=== PATIENT | male | born 1945 | race Caucasian/White ===

== ENCOUNTER 2020-03-21 06:28 | Inpatient (IN) | payer OTHER, SELFPAY ==
[2020-03-21] VITALS (37 sets, daily range): BP systolic 136–184; BP diastolic 60–106; PULSE 60–87; RESP 12–26; TEMP 36.5–37.1; O2SAT 4–100; BMI 19.5
--- NOTE | ~2020-03-21 | NM_ITS ---
NM pulmonary perfusion DATE: 03/21/2020 09:32 INDICATION: Shortness of breath TECHNIQUE: 8 standard views of the lungs following intravenous injection of 4.87 mCi 99M technetium M AA COMPARISON: 03/21/2020 AP and lateral chest FINDINGS: No significant subsegmental, segmental or lobar perfusion abnormality is evident. IMPRESSION: Low probability pulmonary embolus Reviewed, dictated and finalized at [facility] Reviewed, dictated and finalized at [facility].
--- NOTE | ~2020-03-21 | XR_ITS ---
EXAMINATION: XR chest 2V DATE: 03/21/2020 07:07 INDICATION: Shortness of breath TECHNIQUE: frontal view of the chest was obtained. COMPARISON: Chest radiograph dated 07/09/[address] studies dated 05/19/2017 and 03/01/2011 FINDINGS: Hyperexpansion of the lungs. No significant interval change in patchy groundglass and linear opacitie s scattered throughout both lungs consistent with chronic interstitial lung disease. Heart size is no rmal. Enlargement of the central pulmonary arteries consistent with pulmonary arterial hypertension. Visualized bones and soft tissues are unremarkable. IMPRESSION: 1. No significant interval change in diffuse bilateral lung disease which likely combination of emphy sema and chronic interstitial lung disease. Reviewed, dictated and finalized at [facility]. IMPRESSION: 1. No significant interval change in diffuse bilateral lung disease which likel y combination of emphysema and chronic interstitial lung disease.
--- NOTE | 2020-03-21 07:11 | ECG_ITS ---
Measurements Intervals [place] Rate: 69 P: 80 MT: 180 QRS: 57 QRSD: 106 T: 73 QT: 374 QTc: 403 Interpretive Statements SINUS RHYTHM INCOMPLETE RIGHT BUNDLE BRANCH BLOCK CANNOT RULE OUT SEPTAL INFARCT, AGE INDETERMINATE BASELINE ARTIFACT- II, III, V5-V6 ABNORMAL ECG Electronically Signed On 03-21-2020 7:14:08 CDT by Fernie Jones D.O.
--- NOTE | 2020-03-21 07:14 | ED.SOB ---
HPI - SOB/Dyspnea General Chief Complaint: Shortness of Breath/Dyspnea Stated Complaint: sob Time Seen by Provider: 03/21/20 07:02 Source: RN notes reviewed History of Present Illness HPI Narrative: Patient presents emergency department from home for shortness of breath. Patient states symptoms been ongoing for the past 2 days. Associated with cough is productive of yellowish-pink sputum. Patient states he has a history of COPD and is currently on oxygen nasal cannula 2 L/min at all times states he has had to increase up to 5 times. Denies any fevers or chills chest pain abdominal pain nausea vomiting or any other symptoms Related Data Home Medications Medication Instructions Recorded Confirmed albuterol sulfate 90 mcg/actuation 1 inhalation INHALATION Q4-6H PRN 10/25/19 breath activated powder inhaler alprazolam 0.5 mg tablet 0.5 mg PO DAILY 10/25/19 aspirin 325 mg tablet 325 mg PO DAILY 10/25/19 divalproex 125 mg capsule,delayed PO 10/25/19 release sprinkle finasteride 5 mg tablet 5 mg PO DAILY 10/25/19 megestrol 400 mg/10 mL (40 mg/mL) 100 mg PO QID 10/25/19 oral suspension metoprolol succinate 25 mg 25 mg PO DAILY 10/25/19 tablet,extended release 24 hr multivitamin-ferrous 1 tablet PO DAILY 10/25/19 fumarate-folic acid 18 mg-400 mcg tablet omeprazole 20 mg capsule,delayed 20 mg PO DAILY 10/25/19 release Allergies Allergy/AdvReac Type Severity Reaction Status Date / Time Contrast Media Allergy Mild Hives / Uncoded 03/21/20 07:19 Red Face - Contrast Media Allergy Unknown Hives / Uncoded 03/21/20 07:19 Red Face No Known Drug Allergies Allergy Unknown Unknown Uncoded 03/21/20 07:19 Review of Systems Review of Systems: Narrative: Gen.: Denies fevers or chills ENT: Denies congestion Respiratory: Reports shortness of breath CV: Denies chest pain or palpitations GI: Denies abdominal pain nausea, emesis or diarrhea Musculoskeletal: Denies back pain or muscle pain Neuro: Denies numbness, tingling, weakness or focal weakness Skin: Denies rash Except as documented, all other systems reviewed and negative PMFSH Past Medical History Medical History 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 ABDOMINAL: Soft, nontender, nondistended, no rebound or guarding MUSCULOSKELETAl: Moves all extremities. No clubbing, cyanosis or edema. NEURO: Awake and alert. Following commands, speech normal, no focal deficits SKIN:: Warm, dry. No rashes lesions or abrasions PSYCHIATRIC: Normal affect/mood, Course Course Emergency Course: Patient was walking pulse ox in ED patient with O2 saturations down into the mid 80s with ambulation with his normal 2 L O2 will admit at this time Discussed with Dr. Aguero presentation work-up. Agrees with mission at this time Discussed with patient and family results of workup and diagnosis. Discussed need for admission. Patient and family understand and agree to current treatment plan Vital Signs Vital signs: Vital Signs Temperature 98.7 F 03/21/20 06:30 Pulse Rate 69 03/21/20 06:30 Respiratory Rate 20 03/21/20 06:30 Blood Pressure 182/83 H 03/21/20 06:30 Pulse Oximetry 4 L 03/21/20 06:30 Temperature 97.9 F 03/21/20 07:15 Pulse Rate 66 03/21/20 10:21 Respir
[2020-03-21 07:48] LABS: Alveolar/Arterial O2 Gradient 7.9 mmHg; Base Excess ABG 5.3 mEq/l (+/-2.0); Device NASAL CANNULA; Fractional Inspired Oxygen 28 %; HCO3 ABG 31.1 mEq/l (22.0-26.0); Oxygen Content ABG 16.2 %vol (16.0-22.0); Oxygen Saturation ABG 98.6 % (95.0-100.0); Oxyhemoglobin 97.2 % THb (90.0-100.0); PCO2 ABG 51.2 mmHg (35.0-45.0); PO2 ABG 131.3 mmHg (80.0-100.0); PO2 FiO2 Ratio Arterial Blood 4.69 %; Site Drawn RIGHT BRACHIAL; Total Hemoglobin 11.7 g/dL (12.0-18.0); pH ABG 7.402 (7.350-7.450)
[2020-03-21 07:48] LABS: Basophils Percent Auto 0.4 % (0.2-1.2); Eosinophils Absolute Auto 0.3 K/mm3 (0-0.3); Hematocrit 37.8 % (42.0-52.0); Hemoglobin 12.2 g/dL (14.0-18.0); Immature Granulocyte Absolute 0.02 K/mm3 (0.00-0.031); Immature Granulocyte Percent A 0.3 % (0-0.5); Lymphocytes Absolute Auto 2.01 K/mm3 (0.9-3.2); Lymphocytes Percent Auto 28.8 % (18.3-44.2); Mean Corpuscular HGB Conc 32.3 g/dl (32-36); Mean Corpuscular Hemoglobin 28.7 pg (26-34); Mean Corpuscular Volume 88.9 fl (80-100); Mean Platelet Volume 10.2 fl (7.4-10.4); Monocytes Absolute Auto 0.7 K/mm3 (0.1-0.6); Monocytes Percent Auto 9.6 % (2.6-8.5); Neutrophils Percent Auto 56.9 % (45.5-73.1); Platelet Count Result 192 k/mm3 (150-375); Red Blood Count 4.25 M/mm3 (4.6-6.20); Red Cell Distribution Width 13.9 % (11.5-14.5)
[2020-03-21 07:57] LABS: Prothrombin Time 12.7 Seconds (11.1-14.7)
[2020-03-21 07:58] LABS: Partial Thromboplastin Time 21.6 SECONDS (22.3-36.8)
[2020-03-21 07:59] LABS: Lactic Acid Reflex 1.1 mmol/L (0.7-2.1)
[2020-03-21 08:01] LABS: Blood Urea Nitrogen 18 mg/dL (9-20); Calcium 8.8 mg/dL (8.4-10.2); Carbon Dioxide > 40 mmol/L (22-30); Chloride 99 mmol/L (98-107); Estimated CRCL calculation 83 ml/min; Estimated Glomerular Filt Rate > 60; Glucose 105 mg/dL (75-110); Potassium 4.7 mmol/L (3.4-5.0); Sodium 138 mmol/L (137-145)
[2020-03-21 08:11] LABS: Troponin I < 0.012 ng/mL (0.000-0.034)
[2020-03-21] MEDS: methylPREDNISolone SOD SUCC 125 MG VIAL IV PUSH (08:13)
[2020-03-21] MEDS: ALBUTEROL SULFATE NEB 2.5 MG/0.5 ML INH 5 MG INHALATION ×2 (08:25→20:41)
[2020-03-21] MEDS: IPRATROPIUM BR 0.02% INH SOLN 0.5 MG/2.5 ML VIAL INHALATION ×2 (08:26→20:41)
--- NOTE | 2020-03-21 12:44 | ADMGEN ---
This patient, Marino Steiner, was admitted to [facility] Surg Room 330-01. Patient oriented to hospital policies and general routines including ID bracelet, bed and alarms, visiting hours, pain management, procedures, bathroom and other care routines, personal items, smoking policy, room service/diet, and visiting hours. Valuables list has been completed. Information on how to activate the Rapid Response Team has been discussed. Patient is encouraged to report perceived risks to care and to ask questions if they do not understand what they are told or what they should do.
[2020-03-21] MEDS: methylPREDNISolone SOD SUCC 125 MG VIAL 60 MG IV PUSH ×2 (14:37→17:59)
[2020-03-21 17:01] LABS: SARS-CoV-2 RNA PCR Negative
--- NOTE | 2020-03-21 17:47 | PM.IMHP ---
H&P: HPI History of Present Illness Chief complaint: AE COPD/hypoxia Narrative: Marino Steiner is a 74 year old male who lives at home with his and has been on quarantine. The patient denies any fever chills. He does have a history of having COPD with chronic hypoxia. The patient is chronically on oxygen at 2 L per nasal cannula. The patient states that he has a pulse oximetry at home and his oxygen levels have never dropped below 90%. However the patient has been complaining of increasingly shortness of breath the last 2 days. The patient turned his oxygen up to 5 L per nasal cannula. The patient does have nebulizer treatments at home. He has had no fever chills, no nausea or vomiting. The patient was checked for covid 19 which is now resulting is negative. The patient stated that he had a yellow productive cough as well. He is not sure if he sees a sharepoint web developer. He believes he is just being treated by his primary care doctor for COPD. However I did see a note from Dr. Cox sharepoint web developer from last year. Pulmonary perfusion imaging was read as low probability pulmonary embolism. Chest x-ray was read as no significant interval change in diffuse bilateral lung disease which likely combination of emphysema and chronic interstitial lung disease. The patient was given nebulizer treatments in the emergency room and Solu-Medrol. The patient is back down to oxygen at 2 L per nasal cannula. He initially was placed on isolation for potential COVID but now that is negative he can be off of isolation. Date of service is 03/21/2020 Review of Systems Review of Systems: All systems reviewed & are unremarkable except as noted in HPI and below Constitutional: Constitutional: Reports as per HPI and Reports no additional constitutional complaints Eyes: Eyes: Reports as per HPI and Reports no additional eye complaints ENT: Reports system reviewed and no additional complaints, except as documented and Reports Normal hearing present Cardiovascular: Cardiovascular: Reports no additional cardiovascular complaints Respiratory: Respiratory: Reports no additional respiratory complaints and Reports no additional respiratory complaints Gastrointestinal: Gastrointestinal: Reports as per HPI and Reports no additional gastrointestinal complaints Musculoskeletal: Musculoskeletal: Reports no additional musculoskeletal complaints Integumentary/Breasts: Skin/Breast: Reports system reviewed and no additional complaints, except as docu and Reports as per HPI Neurologic: Reports system reviewed and no additional complaints, except as documented, Reports as per HPI and Reports Normal hearing present Psychiatric: Psychiatric: Reports no additional psychiatric complaints and Reports as per HPI Endocrine: Endocrine: Reports no additional endocrine complaints Hematologic/Lymphatic: Hematologic/Lymphatic: Reports no additional hematologic/lymphatic complaints Allergic/Immunologic: Allergic/Immunologic: Reports no additional allergic/immunologic complaints [facility] Past Medical History Medical History (Updated 03/21/20 @ 17:59 by Stacie Meyers NP) Anemia Anorexia Anxiety BPH (benign prostatic hyperplasia) 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 He has been in quarantine since December. His is his durable power atto
[2020-03-21] MEDS: carvediloL 6.25 MG TABLET BY MOUTH (17:58)
[2020-03-21] MEDS: DIVALPROEX SODIUM SPRINKLE 125 MG CAP.DR PO (21:02)
[2020-03-22] VITALS (15 sets, daily range): BP systolic 110–136; BP diastolic 37–65; PULSE 64–83; RESP 16–20; TEMP 36.4–36.7; O2SAT 93–100
[2020-03-22] MEDS: methylPREDNISolone SOD SUCC 125 MG VIAL 60 MG IV PUSH ×4 (00:02→21:12)
[2020-03-22] MEDS: IPRATROPIUM BR 0.02% INH SOLN 0.5 MG/2.5 ML VIAL INHALATION ×4 (02:03→19:56)
[2020-03-22] MEDS: ALBUTEROL SULFATE NEB 2.5 MG/0.5 ML INH 5 MG INHALATION ×4 (02:03→19:56)
[2020-03-22 06:57] LABS: Basophils Percent Auto 0.2 % (0.2-1.2); Hemoglobin 11.5 g/dL (14.0-18.0); Immature Granulocyte Absolute 0.06 K/mm3 (0.00-0.031); Immature Granulocyte Percent A 0.5 % (0-0.5); Lymphocytes Absolute Auto 1.77 K/mm3 (0.9-3.2); Lymphocytes Percent Auto 14.5 % (18.3-44.2); Mean Corpuscular HGB Conc 33.8 g/dl (32-36); Mean Corpuscular Hemoglobin 29.5 pg (26-34); Mean Corpuscular Volume 87.2 fl (80-100); Mean Platelet Volume 9.8 fl (7.4-10.4); Monocytes Absolute Auto 0.3 K/mm3 (0.1-0.6); Monocytes Percent Auto 2.3 % (2.6-8.5); Neutrophils Absolute Auto 10.1 K/mm3 (1.3-6.7); Neutrophils Percent Auto 82.5 % (45.5-73.1); Platelet Count Result 202 k/mm3 (150-375); Red Cell Distribution Width 13.7 % (11.5-14.5); White Blood Count 12.2 K/mm3 (4.5-10.0)
[2020-03-22 07:11] LABS: Blood Urea Nitrogen 27 mg/dL (9-20); Calcium 8.9 mg/dL (8.4-10.2); Carbon Dioxide 32 mmol/L (22-30); Chloride 96 mmol/L (98-107); Estimated CRCL calculation 64 ml/min; Estimated Glomerular Filt Rate > 60; Glucose 218 mg/dL (75-110); Potassium 4.5 mmol/L (3.4-5.0); Sodium 136 mmol/L (137-145)
[2020-03-22] MEDS: ASPIRIN 81 MG CHEWABLE TABLET PO (08:06)
[2020-03-22] MEDS: carvediloL 6.25 MG TABLET BY MOUTH ×2 (12:07→16:41)
[2020-03-22] MEDS: MULTIVITAMINS /C LUTEIN (CENTRUM SILVER) TABLET *BKC 1 TAB PO (12:07)
[2020-03-22] MEDS: DIVALPROEX SODIUM SPRINKLE 125 MG CAP.DR PO ×2 (12:07→21:12)
[2020-03-22] MEDS: ATORVASTATIN 40 MG TABLET PO (12:07)
[2020-03-22] MEDS: CLOPIDOGREL BISULFATE 75 MG TABLET BY MOUTH (12:07)
[2020-03-22] MEDS: FINASTERIDE 5 MG TABLET PO (12:07)
--- NOTE | 2020-03-22 14:18 | PM.IMPN ---
Progress Note: A&P Assessment and Plan (1) Acute exacerbation of chronic obstructive airways disease: Code(s): J44.1 - Chronic obstructive pulmonary disease with (acute) exacerbation Status: Acute Assessment and Plan: Patient on 3L O2 today; slightly up from yesterday. He has symptomatically improved, although still feels congested and reporting a dry cough; requests a mucolytic. Overall, he feels better today. COVID testing negative. Sputum Cx uncollected. Appears more COPD exacerbation but on empiric abx therapy for possible pneumonia. Will taper SoluMedrol frequency to Q12hr tomorrow Wean to home O2 Continue neb treatments, Mucinex. Add Mucinex, Pulmozyme, and CPT PEP therapy Will continue Azithro and Rocephin for possible underlying pneumonia; will d/c pending sputum cultures/clinical improvement Continue home medications (2) Hypertension: Code(s): I10 - Essential (primary) hypertension Status: Chronic Assessment and Plan: BP 120s sys Continue with Coreg. Monitor (3) BPH (benign prostatic hyperplasia): Code(s): N40.0 - Benign prostatic hyperplasia without lower urinary tract symptoms Status: Chronic Assessment and Plan: No acute issues. It sounds like the patient had a urethral stricture dilatation in the past. He states he chronically has increased frequency. Continue with Proscar (4) Anxiety: Code(s): F41.9 - Anxiety disorder, unspecified Status: Chronic Assessment and Plan: No acute issues Monitor (5) Anemia: Code(s): D64.9 - Anemia, unspecified Status: Chronic Assessment and Plan: Hgb 11.5; relatively stable. No signs of acute blood loss Continue to monitor daily (6) Anorexia: Code(s): R63.0 - Anorexia Status: Chronic Assessment and Plan: The patient had been on Megace at one time but no longer takes this. Patient has lost approximately 40 lb since he has retired. Patient is currently on steroids now. 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 No acute issues Monitor PT/OT for some gen weakness (8) Diastolic dysfunction: Code(s): I51.89 - Other ill-defined heart diseases Status: Chronic Assessment and Plan: Appears to be well compensated continue Coreg Subjective Date/time seen: 03/22/20 14:18 Interval history: Patient is a 74 yo M with COPD, CRF on 2L O2 at home, and BPH, among several other comorbid conditions who is here for likely COPD exacerbation. Patient states he feels about a medium in his respiratory status today; when questioned further, his SOB has improved. His cough is non-productive today. He notes previously pink-yellowish sputum, but no kendell blood. Nursing reports foul smelling urine and patient confirms, but denies any urinary symptoms other than increased frequency. He tells me he usually goes several days without bowel movements, but then has diarrhea after taking laxatives. No bloody/melenic stools. He does complain of right upper thigh pain, but no redness swelling; this has been persistent for several weeks. Denies f/c/s, headaches, dizziness, lightheadedness, cp/palpitations,n/v, abd pain, dysuria, hematuria, cloudy urine, calf pain/swelling. Review of Systems Review of Systems: All systems reviewed & are unremarkable except as noted in HPI and below Exam Narrative: Exam Narrative: Patient is lying s
--- NOTE | 2020-03-22 14:35 | PCPTNOTE ---
attempted PT evaluation, pt was receiving respiratory treatment. Will attempt tomorrow;
--- NOTE | 2020-03-22 14:48 | PCOTNOTE ---
Attempted OT evaluation this PM however was receiving a breathing treatment and requested to attempt evaluation tomorrow. Will attempt OT evaluation tomorrow.
[2020-03-22 18:47] LABS: Add Urine Microscopic? YES; Appearance Urine Clear (Clear); Bacteria Urine Trace /hpf; Bilirubin Urine Negative (Negative); Color Urine Yellow (Yellow); Glucose Urine UA 3+ mg/dL (Negative); Ketones Urine Negative (Negative); Leukocyte Esterase Ur 2+ LEU/UL (Negative); Nitrate Urine Negative (Negative); Protein Urine 1+ mg/dL (Negative); Specific Grav Ur 1.021 (1.001-1.035); Squamous Epithelial Cell Urine Rare /hpf (Few); Urobilinogen Urine Negative mg/dL (<2.0); WBC Urine >75 /hpf
[2020-03-22 18:48] LABS: Blood Urine Negative (Negative)
[2020-03-22] MEDS: DORNASE ALFA INH SOLN 1 MG/ML 2.5 ML AMP 2.5 MG INHALATION (19:56)
[2020-03-23] VITALS (15 sets, daily range): BP systolic 114–142; BP diastolic 57–92; PULSE 52–95; RESP 16–20; TEMP 36.1–36.7; O2SAT 94–100
[2020-03-23] MEDS: ALBUTEROL SULFATE NEB 2.5 MG/0.5 ML INH 5 MG INHALATION ×4 (01:14→21:20)
[2020-03-23] MEDS: IPRATROPIUM BR 0.02% INH SOLN 0.5 MG/2.5 ML VIAL INHALATION ×4 (01:14→21:20)
[2020-03-23 06:26] LABS: Basophils Percent Auto 0.1 % (0.2-1.2); Hematocrit 32.2 % (42.0-52.0); Hemoglobin 10.8 g/dL (14.0-18.0); Immature Granulocyte Absolute 0.13 K/mm3 (0.00-0.031); Immature Granulocyte Percent A 0.8 % (0-0.5); Lymphocytes Absolute Auto 1.41 K/mm3 (0.9-3.2); Lymphocytes Percent Auto 8.7 % (18.3-44.2); Mean Corpuscular HGB Conc 33.5 g/dl (32-36); Mean Corpuscular Hemoglobin 29.4 pg (26-34); Mean Corpuscular Volume 87.7 fl (80-100); Mean Platelet Volume 10.1 fl (7.4-10.4); Monocytes Absolute Auto 0.9 K/mm3 (0.1-0.6); Monocytes Percent Auto 5.8 % (2.6-8.5); Neutrophils Absolute Auto 13.8 K/mm3 (1.3-6.7); Neutrophils Percent Auto 84.6 % (45.5-73.1); Platelet Count Result 191 k/mm3 (150-375); Red Blood Count 3.67 M/mm3 (4.6-6.20); Red Cell Distribution Width 13.9 % (11.5-14.5); White Blood Count 16.3 K/mm3 (4.5-10.0)
[2020-03-23 06:42] LABS: Blood Urea Nitrogen 40 mg/dL (9-20); Calcium 8.7 mg/dL (8.4-10.2); Carbon Dioxide 32 mmol/L (22-30); Chloride 97 mmol/L (98-107); Estimated CRCL calculation 64 ml/min; Estimated Glomerular Filt Rate > 60; Glucose 201 mg/dL (75-110); Magnesium 1.9 mg/dL (1.6-2.3); Potassium 4.5 mmol/L (3.4-5.0); Sodium 133 mmol/L (137-145)
[2020-03-23] MEDS: DORNASE ALFA INH SOLN 1 MG/ML 2.5 ML AMP 2.5 MG INHALATION ×2 (07:22→21:20)
[2020-03-23] MEDS: DIVALPROEX SODIUM SPRINKLE 125 MG CAP.DR PO ×2 (08:45→20:34)
[2020-03-23] MEDS: MULTIVITAMINS /C LUTEIN (CENTRUM SILVER) TABLET *BKC 1 TAB PO (08:48)
[2020-03-23] MEDS: FINASTERIDE 5 MG TABLET PO (08:48)
[2020-03-23] MEDS: ASPIRIN 81 MG CHEWABLE TABLET PO (08:48)
[2020-03-23] MEDS: ATORVASTATIN 40 MG TABLET PO (08:48)
[2020-03-23] MEDS: CLOPIDOGREL BISULFATE 75 MG TABLET BY MOUTH (08:49)
[2020-03-23] MEDS: carvediloL 6.25 MG TABLET BY MOUTH ×2 (08:51→17:00)
[2020-03-23] MEDS: methylPREDNISolone SOD SUCC 125 MG VIAL 60 MG IV PUSH ×2 (08:52→20:34)
--- NOTE | 2020-03-23 14:28 | PM.IMPN ---
Progress Note: A&P Assessment and Plan (1) Acute exacerbation of chronic obstructive airways disease: Code(s): J44.1 - Chronic obstructive pulmonary disease with (acute) exacerbation Status: Acute Assessment and Plan: Patient on 2L O2 today, improved. He has clinically improved again today. COVID testing negative. Sputum Cx uncollected. Appears more COPD exacerbation but on empiric abx therapy for possible pneumonia. Sputum Cx growing many Gram positive cocci and mod Gram negative bacilli. BCx negative to date x 2 Will taper SoluMedrol frequency to Q24hr tomorrow Titrate O2 as neeeded Continue neb treatments, Mucinex, Pulmozyme, and CPT PEP therapy Will continue Azithro and Rocephin for possible underlying pneumonia; will d/c pending sputum cultures/clinical improvement Continue home medications (2) Hypertension: Code(s): I10 - Essential (primary) hypertension Status: Chronic Assessment and Plan: BP 130s sys Continue with Coreg. Monitor (3) BPH (benign prostatic hyperplasia): Code(s): N40.0 - Benign prostatic hyperplasia without lower urinary tract symptoms Status: Chronic Assessment and Plan: No acute issues. It sounds like the patient had a urethral stricture dilatation in the past. He states he chronically has increased frequency. Continue with Proscar (4) Anxiety: Code(s): F41.9 - Anxiety disorder, unspecified Status: Chronic Assessment and Plan: No acute issues Monitor (5) Anemia: Code(s): D64.9 - Anemia, unspecified Status: Chronic Assessment and Plan: Hgb 10.8; relatively stable. No signs of acute blood loss Continue to monitor daily (6) Anorexia: Code(s): R63.0 - Anorexia Status: Chronic Assessment and Plan: The patient had been on Megace at one time but no longer takes this. Patient has lost approximately 40 lb since he has retired. Patient is currently on steroids now. 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 No acute issues Monitor PT/OT for some gen weakness (8) Diastolic dysfunction: Code(s): I51.89 - Other ill-defined heart diseases Status: Chronic Assessment and Plan: Appears to be well compensated continue Coreg Subjective Date/time seen: 03/23/20 14:28 Interval history: Patient is a 74 yo M with COPD, CRF on 2L O2 at home, and BPH, among several other comorbid conditions who is here for likely COPD exacerbation. Patient states he feels much better today; improvement with SOB. His cough is still non-productive today, but better. He notes previously pink-yellowish sputum prior to admission, but no kendell blood. He reports some burning with urination. He has not had a BM, but does not wish to have a laxative at this moment; does not report any gas. Denies f/c/s, headaches, dizziness, lightheadedness, cp/palpitations, n/v, current abd pain, dysuria, hematuria, cloudy urine, calf pain/swelling. Review of Systems Review of Systems: All systems reviewed & are unremarkable except as noted in HPI and below Exam Narrative: Exam Narrative: Patient sitting upright in bed at time of visit Const: General: cooperative, comfortable, no acute distress, well developed, alert and awake Nutritional Appearance: thin Orientation/consciousness: patient oriented x3 HENMT: Head: normocephalic and atraumatic General nose exam: Normal nares pres
[2020-03-24] VITALS (12 sets, daily range): BP systolic 138–160; BP diastolic 54–69; PULSE 55–76; RESP 16–20; TEMP 36.2–36.7; O2SAT 93–99
[2020-03-24] MEDS: ALBUTEROL SULFATE NEB 2.5 MG/0.5 ML INH 5 MG INHALATION ×3 (02:31→14:04)
[2020-03-24] MEDS: IPRATROPIUM BR 0.02% INH SOLN 0.5 MG/2.5 ML VIAL INHALATION ×3 (02:32→14:04)
[2020-03-24 06:24] LABS: Basophils Percent Auto 0.1 % (0.2-1.2); Hematocrit 34.6 % (42.0-52.0); Hemoglobin 11.5 g/dL (14.0-18.0); Immature Granulocyte Absolute 0.08 K/mm3 (0.00-0.031); Immature Granulocyte Percent A 0.8 % (0-0.5); Lymphocytes Absolute Auto 1.12 K/mm3 (0.9-3.2); Lymphocytes Percent Auto 11.4 % (18.3-44.2); Mean Corpuscular HGB Conc 33.2 g/dl (32-36); Mean Corpuscular Hemoglobin 28.6 pg (26-34); Mean Corpuscular Volume 86.1 fl (80-100); Mean Platelet Volume 9.8 fl (7.4-10.4); Monocytes Absolute Auto 0.4 K/mm3 (0.1-0.6); Neutrophils Absolute Auto 8.2 K/mm3 (1.3-6.7); Neutrophils Percent Auto 83.7 % (45.5-73.1); Platelet Count Result 200 k/mm3 (150-375); Red Blood Count 4.02 M/mm3 (4.6-6.20); Red Cell Distribution Width 13.7 % (11.5-14.5); White Blood Count 9.8 K/mm3 (4.5-10.0)
[2020-03-24 06:53] LABS: Blood Urea Nitrogen 32 mg/dL (9-20); Calcium 8.5 mg/dL (8.4-10.2); Carbon Dioxide 35 mmol/L (22-30); Chloride 97 mmol/L (98-107); Estimated CRCL calculation 73 ml/min; Estimated Glomerular Filt Rate > 60; Glucose 220 mg/dL (75-110); Magnesium 1.9 mg/dL (1.6-2.3); Potassium 4.8 mmol/L (3.4-5.0); Sodium 134 mmol/L (137-145)
[2020-03-24] MEDS: DORNASE ALFA INH SOLN 1 MG/ML 2.5 ML AMP 2.5 MG INHALATION (08:11)
[2020-03-24] MEDS: methylPREDNISolone SOD SUCC 125 MG VIAL 60 MG IV PUSH (10:00)
[2020-03-24] MEDS: ATORVASTATIN 40 MG TABLET PO (10:01)
[2020-03-24] MEDS: FINASTERIDE 5 MG TABLET PO (10:01)
[2020-03-24] MEDS: DIVALPROEX SODIUM SPRINKLE 125 MG CAP.DR PO (10:01)
[2020-03-24] MEDS: MULTIVITAMINS /C LUTEIN (CENTRUM SILVER) TABLET *BKC 1 TAB PO (10:01)
[2020-03-24] MEDS: ASPIRIN 81 MG CHEWABLE TABLET PO (10:02)
[2020-03-24] MEDS: CLOPIDOGREL BISULFATE 75 MG TABLET BY MOUTH (10:02)
[2020-03-24] MEDS: carvediloL 6.25 MG TABLET BY MOUTH (10:02)
--- NOTE | 2020-03-24 13:55 | PM.DS ---
DS: Admitting Diagnosis Admitting Diagnosis Admitting Diagnosis: Chronic obstructive pulmonary disease with (acute) exacerbation DS: Discharge Diagnosis Discharge Diagnosis (1) Acute exacerbation of chronic obstructive airways disease: Code(s): J44.1 - Chronic obstructive pulmonary disease with (acute) exacerbation Status: Acute Assessment and Plan: Patient on 2L O2 today, improved; seemingly at his baseline O2 requirement. He has clinically improved again today. COVID testing negative. Sputum Cx growing many Gram positive cocci and moderate Gram negative bacilli. Appears more COPD exacerbation but on empiric abx therapy for possible pneumonia. BCx negative to date x 2 Will start prednisone taper tomorrow Discharge home today. Benefits of HH therapy and risks of returning home without HH discuss; patient refused giving financial issues. Understands the risks. Will do home medications, mucinex, and PEP therapy at discharge Will continue Azithro ending 03/25 and cefdinir ending 03/27 for possible underlying pneumonia Recommended establishing with a [employer] Supervisor; f/u with PCP for referrals; will give Dr. Cox's information as well (2) Hypertension: Code(s): I10 - Essential (primary) hypertension Status: Chronic Assessment and Plan: BP 130s sys this morning Continue with Coreg. Monitor (3) BPH (benign prostatic hyperplasia): Code(s): N40.0 - Benign prostatic hyperplasia without lower urinary tract symptoms Status: Chronic Assessment and Plan: No acute issues. It sounds like the patient had a urethral stricture dilatation in the past. He states he chronically has increased frequency. Continue with Proscar (4) Anxiety: Code(s): F41.9 - Anxiety disorder, unspecified Status: Chronic Assessment and Plan: No acute issues Monitor (5) Anemia: Code(s): D64.9 - Anemia, unspecified Status: Chronic Assessment and Plan: Hgb 11.5; relatively stable. No signs of acute blood loss f/u with PCP (6) Anorexia: Code(s): R63.0 - Anorexia Status: Chronic Assessment and Plan: The patient had been on Megace at one time but no longer takes this. Patient has lost approximately 40 lb since he has retired. Patient is currently on steroids now. 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 No acute issues Monitor (8) Diastolic dysfunction: Code(s): I51.89 - Other ill-defined heart diseases Status: Chronic Assessment and Plan: Appears to be well compensated continue Coreg (9) UTI (urinary tract infection): Code(s): N39.0 - Urinary tract infection, site not specified Status: Acute Assessment and Plan: Patient having dysuria occasionally. UC growing Gram negative bacilli. Already receiving Rocephin for COPD exacerbation Continue Cefdinir at discharge F/u with PCP Follow cultures after discharge; adjust antibiotics if appropriate DS: Summary Hospital Course Reason for hospitalization: COPD exacerbation Hospital Course: Patient is a 74 yo M with history of COPD, CRF on 2 L O2 at all times, previous CVA, among other comorbid conditions who presented to the ER on 03/21 with complaints of worsened shortness of breath for the prior 2 days and production of yellow-pink sputum; he had to increase his O2 to 5L while at home. While in the ER, patient was found to d
[2020-03-24] MEDS: AZITHROMYCIN 250 MG TABLET 500 MG PO (17:23)
--- NOTE | 2020-03-26 07:51 | PC.NURSE ---
Sputum cx shows normal saulo. Urine culture is sensitive to meds sent home on. Eduard Chavis PA-C
--- NOTE | 2020-03-27 08:33 | PC.NURSE ---
Blood cx are negative.
== END 2020-03-24 18:15 | disposition home or self-care (01) | DRG 190 ==
LOC: ANHED 10:29 → ANH3MEDSUR 10:46
PROVIDERS: Emergency Medicine; Physician Assistant; Admitting Provider Hospitalist; Emergency Provider Emergency Medicine; PCP Emergency Medicine; Visit Provider Family Medicine
DX: J44.1 Chronic obstructive pulmonary disease with (acute) exacerbation (principal); J18.9 Pneumonia, unspecified organism; N39.0 Urinary tract infection, site not specified; J44.0 Chronic obstructive pulmonary disease with (acute) lower respiratory infection; N40.0 Benign prostatic hyperplasia without lower urinary tract symptoms; F41.9 Anxiety disorder, unspecified; D64.9 Anemia, unspecified; I10 Essential (primary) hypertension; R63.0 Anorexia; E78.5 Hyperlipidemia, unspecified; Z20.828 Contact with and (suspected) exposure to other viral communicable diseases; Z86.73 Personal history of transient ischemic attack (TIA), and cerebral infarction without residual deficits; Z87.891 Personal history of nicotine dependence; B96.20 Unspecified Escherichia coli [E. coli] as the cause of diseases classified elsewhere
CPT/HCPCS: 36415; 36600; 71046; 78580; 80048; 81001; 82805; 83605; 83735; 84484; 85025; 85610; 85730; 87040; 87070; 87077; 87086; 87088; 87186; 87205; 87635; 93005; 94640; 94667; 94668; 96374; 97161; 97165; 99285; A9270; A9540; C9803; J0456; J0696; J2930; U0003

== ENCOUNTER 2020-03-29 06:41 | Emergency (ER) | payer OTHER, SELFPAY ==
[2020-03-29] VITALS (7 sets, daily range): BP systolic 113–145; BP diastolic 59–75; PULSE 66–90; RESP 18–20; TEMP 36.9; O2SAT 99–100
--- NOTE | 2020-03-29 06:59 | ED.NAVMDI ---
HPI - Nausea/Vomiting/Diarrhea General Chief complaint: Nausea/Vomiting/Diarrhea Stated complaint: Diarrhea Time Seen by Provider: 03/29/20 06:56 History of Present Illness HPI Narrative: watery diarrhea for the past 5 days. Started after being discharged from the hospital during a stay in which he was being treated for pneumonia. Antibiotics and steroids completed a few days ago. Has been on immodium without relief. No pain, nausea, weakness, dizziness. Related Data Home Medications Medication Instructions Recorded Confirmed albuterol sulfate 90 mcg/actuation 1 inhalation INHALATION Q4-6H PRN 10/25/19 03/29/20 breath activated powder inhaler divalproex 125 mg capsule,delayed 125 mg PO BID 10/25/19 03/29/20 release sprinkle finasteride 5 mg tablet 5 mg PO DAILY 10/25/19 03/29/20 multivitamin-ferrous 1 tablet PO DAILY 10/25/19 03/29/20 fumarate-folic acid 18 mg-400 mcg tablet Aspirin Low Dose 81 mg PO DAILY 03/21/20 03/29/20 Allergies Allergy/AdvReac Type Severity Reaction Status Date / Time Contrast Media Allergy Mild Hives / Uncoded 03/29/20 06:50 Red Face Review of Systems Review of Systems: All systems reviewed & are unremarkable except as noted in HPI and below Constitutional: Constitutional: Denies chills, Denies fever(s) and Denies weakness ENT: Denies dizziness Cardiovascular: Cardiovascular: Denies chest pain Respiratory: Respiratory: Denies dyspnea Gastrointestinal: Gastrointestinal: Denies abdominal pain, Denies bloating, Reports diarrhea, Denies nausea and Denies vomiting Genitourinary: Genitourinary: Denies dysuria Neurologic: Denies confusion, Denies dizziness and Denies weakness Endocrine: Endocrine: Denies polydipsia and Denies polyuria [facility] Past Medical History Medical History Anemia Anorexia Anxiety BPH (benign prostatic hyperplasia) 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 He has been in quarantine since December. His is his durable power mold yard crane operator for healthcare. Patient desires to be a full code. He has 1 son. He quit tobacco in 1968 after smoking a pack a day for 10 years. 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 He is a [place] . Denies any alcohol or drug use. 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 Smoking packs per day: 1 Smoking cigarettes per day: 20.0 Years smoked: 10 Smoking pack-years: 10.00 Smoking status: Former smoker Tobacco type: cigarettes Second hand tobacco smoke exposure: No Alcohol intake: never Substance use type: marijuana Gender identity (if verbalized by the patient): Male Spiritual care concerns: No Exam Const: General: no acute distress, alert and ill appearing chronically Nutritional Appearance: thin Orientation/consciousness: patient oriented x3 HENMT: Head: normal to inspection Resp: Effort & Inspection: normal respiratory effort Auscultation: clear to auscultation bilaterally Cardio: Rate: regular rate Rhythm: regular rhythm GI: Inspection: non-distended GI Palp: Yes Soft to palpation, No Tenderness to palpation present (GI) and No Guarding due to palpation present (GI) Auscultation: normal bowel
[2020-03-29 07:38] LABS: Basophils Percent Auto 0.2 % (0.2-1.2); Eosinophils Absolute Auto 0.4 K/mm3 (0-0.3); Eosinophils Percent Auto 3.6 % (0-4.4); Hematocrit 40.9 % (42.0-52.0); Hemoglobin 13.4 g/dL (14.0-18.0); Immature Granulocyte Absolute 0.06 K/mm3 (0.00-0.031); Immature Granulocyte Percent A 0.5 % (0-0.5); Lymphocytes Absolute Auto 2.75 K/mm3 (0.9-3.2); Lymphocytes Percent Auto 24.2 % (18.3-44.2); Mean Corpuscular HGB Conc 32.8 g/dl (32-36); Mean Corpuscular Hemoglobin 29.5 pg (26-34); Mean Corpuscular Volume 90.1 fl (80-100); Mean Platelet Volume 10.2 fl (7.4-10.4); Monocytes Absolute Auto 1.1 K/mm3 (0.1-0.6); Monocytes Percent Auto 9.3 % (2.6-8.5); Neutrophils Absolute Auto 7.1 K/mm3 (1.3-6.7); Neutrophils Percent Auto 62.2 % (45.5-73.1); Platelet Count Result 258 k/mm3 (150-375); Red Blood Count 4.54 M/mm3 (4.6-6.20); Red Cell Distribution Width 13.8 % (11.5-14.5); White Blood Count 11.4 K/mm3 (4.5-10.0)
[2020-03-29] MEDS: SODIUM CHLORIDE 0.9% IV 1,000 ML 999 ML IV CONT (07:38)
[2020-03-29 07:40] LABS: Alanine Aminotransferase 52 U/L (4-50); Albumin Level 3.6 g/dL (3.5-5.1); Alkaline Phosphatase 45 U/L (38-126); Aspartate Amino Transferase 22 U/L (17-59); Bilirubin,Total 0.9 mg/dL (0.2-1.3); Blood Urea Nitrogen 19 mg/dL (9-20); Calcium 9.1 mg/dL (8.4-10.2); Carbon Dioxide 39 mmol/L (22-30); Chloride 97 mmol/L (98-107); Estimated Glomerular Filt Rate > 60; Glucose 113 mg/dL (75-110); Lipase 69 U/L (23-300); Potassium 4.2 mmol/L (3.4-5.0); Sodium 137 mmol/L (137-145)
--- NOTE | 2020-03-29 07:51 | PC.NURSE ---
Pt incontinent of stool in his diaper. States he has been wet and dirty since he got here but didn't tell anyone. Diaper changed and patient cleaned up.
[2020-03-29 07:59] LABS: Add Urine Microscopic? YES; Appearance Urine Clear (Clear); Bilirubin Urine Negative (Negative); Blood Urine 3+ (Negative); Color Urine Yellow (Yellow); Glucose Urine UA Negative (Negative); Ketones Urine Negative (Negative); Leukocyte Esterase Ur Trace LEU/UL (Negative); Mucus Urine Rare /lpf; Nitrate Urine Negative (Negative); Protein Urine Negative (Negative); RBC Urine >75 /hpf (0-2); Specific Grav Ur 1.013 (1.001-1.035); Urobilinogen Urine Negative mg/dL (<2.0); WBC Urine 0-3 /hpf
--- NOTE | 2020-03-29 08:42 | PC.NURSE ---
Pt incontinent of bowel and bladder in his diaper. Refusing to let nurse change him now. States you might as well wait I'm always going.
--- NOTE | 2020-03-29 10:33 | PC.NURSE ---
Out of dept per wc.
== END 2020-03-29 10:33 | disposition home or self-care (01) ==
PROVIDERS: Emergency Medicine; Emergency Provider Emergency Medicine; PCP Emergency Medicine
DX: R19.7 Diarrhea, unspecified (principal); Z79.82 Long term (current) use of aspirin; D64.9 Anemia, unspecified; N40.0 Benign prostatic hyperplasia without lower urinary tract symptoms; J44.9 Chronic obstructive pulmonary disease, unspecified; E78.5 Hyperlipidemia, unspecified; Z87.891 Personal history of nicotine dependence
CPT/HCPCS: 36415; 80053; 81001; 83690; 85025; 99283; J7030

== ENCOUNTER 2020-04-30 18:37 | Inpatient (IN) | payer OTHER, SELFPAY ==
[2020-04-30] VITALS (9 sets, daily range): BP systolic 137–188; BP diastolic 79–91; PULSE 87–96; RESP 21–28; TEMP 36.6; O2SAT 95–99; BMI 19.8
--- NOTE | ~2020-04-30 | XR_ITS ---
EXAMINATION: XR chest 1V portable INDICATION: Shortness of breath TECHNIQUE: Portable AP chest at 2039 hours COMPARISON: 03/21/2020 FINDINGS: There are patchy bilateral airspace opacities. There is no pleural effusion or pneumothorax . The cardiomediastinal silhouette is normal. IMPRESSION: 1. Patchy bilateral airspace opacities, consistent with atelectasis versus pneumonia. Reviewed, dictated and finalized at location A. IMPRESSION: 1. Patchy bilateral airspace opacities, consistent with atelectasis versus pneu monia.
--- NOTE | 2020-04-30 19:00 | ED.GENADULT ---
HPI - General Adult General Chief complaint: Shortness of Breath/Dyspnea Stated complaint: DIFFFICULTY BREATHING Time Seen by Provider: 04/30/20 19:00 Source: patient Mode of arrival: EMS Limitations: no limitations History of Present Illness HPI narrative: Patient is a 74-year-old male with a history of COPD, chronically on 5 L nasal cannula who presents for evaluation of shortness of breath. Patient with a worsening 2-day history of shortness of breath, denying any chest pain. No fever or cough. Patient states with each visit to the hospital he has had a negative COVID test. He denies myalgias. He does report some difficulty breathing that improves with nebulizer and an increase in his oxygen levels. Patient denies any leg swelling, calf pain. No rashes. Patient states this feels very consistent with his COPD. He states that he is refusing to be admitted to the hospital. Related Data Home Medications Medication Instructions Recorded Confirmed divalproex 125 mg capsule,delayed 125 mg PO BID 10/25/19 04/22/20 release sprinkle finasteride 5 mg tablet 5 mg PO DAILY 10/25/19 04/22/20 multivitamin-ferrous 1 tablet PO DAILY 10/25/19 04/22/20 fumarate-folic acid 18 mg-400 mcg tablet Aspirin Low Dose 81 mg PO DAILY 03/21/20 04/22/20 Allergies Allergy/AdvReac Type Severity Reaction Status Date / Time Contrast Media Allergy Mild Hives / Uncoded 03/29/20 06:50 Red Face Review of Systems Review of Systems: Narrative: CONSTITUTIONAL: Denies fever, chills, or sweats. EYES: Denies visual changes ENT: Denies rhinorrhea, congestion, sore throat, or otalgia. CARDIOVASCULAR: Denies chest pain, palpitations, or edema. RESPIRATORY: Reports dry cough and shortness of breath GASTROINTESTINAL: Denies abdominal pain, nausea, vomiting, or diarrhea. GENITOURINARY: Denies dysuria or hematuria. SKIN: Denies rash or itching. MUSCULOSKELETAL: Denies back pain, joint pain, or myalgia. NEUROLOGIC: Denies headache, numbness, or weakness. 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 He has been in quarantine since December. His is his durable power county attorney for healthcare. Patient desires to be a full code. He has 1 son. He quit tobacco in 1968 after smoking a pack a day for 40 years. 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 He is a [place] . Denies any alcohol or drug use. 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 Smoking packs per day: 1 Smoking cigarettes per day: 20.0 Years smoked: 40 Smoking pack-years: 40.00 Smoking status: Former smoker Tobacco type: cigarettes Second hand tobacco smoke exposure: No Alcohol intake: never Substance use type: marijuana Gender identity (if verbalized by the patient): Male Spiritual care concerns: No Exam Narrative: Exam Narrative: GENERAL: Awake, alert, conversant, thin HEAD: Normocephalic, atraumatic. EYES: PERRLA and EOMI. ENT: Nares clear, no rhinorrhea or epistaxis. Mucous membranes moist. NECK: Supple. CHEST: Nasal cannula in place, moderate respiratory distress, tach
[2020-04-30 19:14] LABS: Basophils Absolute Auto 0.1 K/mm3 (0.0-0.1); Basophils Percent Auto 0.5 % (0.2-1.2); Eosinophils Absolute Auto 0.1 K/mm3 (0-0.3); Eosinophils Percent Auto 1.4 % (0-4.4); Hematocrit 40.1 % (42.0-52.0); Hemoglobin 13.1 g/dL (14.0-18.0); Immature Granulocyte Absolute 0.05 K/mm3 (0.00-0.031); Immature Granulocyte Percent A 0.5 % (0-0.5); Lymphocytes Absolute Auto 2.64 K/mm3 (0.9-3.2); Lymphocytes Percent Auto 25.9 % (18.3-44.2); Mean Corpuscular HGB Conc 32.7 g/dl (32-36); Mean Corpuscular Volume 88.7 fl (80-100); Mean Platelet Volume 9.5 fl (7.4-10.4); Monocytes Absolute Auto 0.7 K/mm3 (0.1-0.6); Neutrophils Absolute Auto 6.6 K/mm3 (1.3-6.7); Neutrophils Percent Auto 64.7 % (45.5-73.1); Platelet Count Result 287 k/mm3 (150-375); Red Blood Count 4.52 M/mm3 (4.6-6.20); Red Cell Distribution Width 13.6 % (11.5-14.5); White Blood Count 10.2 K/mm3 (4.5-10.0)
[2020-04-30] MEDS: methylPREDNISolone SOD SUCC 125 MG VIAL IV PUSH (19:24)
[2020-04-30] MEDS: SODIUM CHLORIDE 0.9% IV 500 ML 999 ML IV CONT (19:24)
[2020-04-30 19:26] LABS: Blood Urea Nitrogen 20 mg/dL (9-20); Carbon Dioxide 36 mmol/L (22-30); Chloride 99 mmol/L (98-107); Estimated CRCL calculation 81 ml/min; Estimated Glomerular Filt Rate > 60; Glucose 157 mg/dL (75-110); Potassium 4.2 mmol/L (3.4-5.0); Sodium 137 mmol/L (137-145)
[2020-04-30] MEDS: ALBUTEROL SULFATE NEB 2.5 MG/0.5 ML INH 10 MG INHALATION (19:26)
[2020-04-30] MEDS: IPRATROPIUM BR 0.02% INH SOLN 0.5 MG/2.5 ML VIAL 2 MG INHALATION (19:27)
--- NOTE | 2020-04-30 19:31 | PCRCNOTE ---
Pt refused Radial ABG stick. RT attempted Brachial ABG with doppler, unsuccessful. Physician notified. Pt currently sating 95% on 8L HFNC.
[2020-04-30 19:35] LABS: NT Pro B Type Natriuretic Pept 228 PG/ML (5-100)
--- NOTE | 2020-04-30 19:50 | PC.NURSE ---
THIS NURSE JUST SPOKE WITH , SHE STATES [facility] WILL BE AT THEIR HOME IN THE MORNING TO PROVIDE THE PT WITH MORE OXYGEN. SHE STATES HER WAS JUST D/C'd FROM THIS FACILITY IN FEBRUARY 2020. THIS NURSE STATED THE PT LUNGS DID NOT SOUND WELL AND A CHEST X RAY WAS ORDERED BY OUR MD, STATES SHE DOESN'T FEEL LIKE HE HAS PNEUMONIA AND WOULD LIKE HIM HOME TONIGHT OR MATERNITY NURSE. PT HAS REFUSED HIS HOUR NEB TREATMENT STATING HES CLAUSTROPHOBIC. THIS NURSE PROVIDED THE PT WITH EDUCATION REGARDING HIS NEEDS FOR THE TREATMENT, PT CONTINUED TO REFUSE.
[2020-04-30] MEDS: MAGNESIUM SULF 2 GM/WATER 50ML 2 GM/50 ML BAG IVPB (20:35)
[2020-04-30] MEDS: ALBUTEROL SULFATE (*SP) AEROSOL 1 PUFF 2 PUFF INHALATION (21:26)
--- NOTE | 2020-04-30 22:14 | PC.NURSE ---
COVID swab collected and sent by this nurse.
--- NOTE | 2020-04-30 22:56 | PM.IMHP ---
H&P: HPI History of Present Illness Chief complaint: Shortness of breath Narrative: Date and time of patient contact: 04/30/2020 at 11:50 p.m. Marino Steiner is a 74 year old male with a past medical history hypertension, COPD and interstitial lung disease on chronic home O2 who presented to the ER via EMS with increased shortness of breath. The patient reports that he has been more short of breath for the past couple of days. He has had a mild nonproductive cough. He has not had any fevers or chills. He has no known COVID-19 exposures. He has been sheltering in place since the beginning of the pandemic. He was hospitalized in February and had a COVID-19 swab that was negative. He reports that his did not want him to come to the hospital and wanted him to wait until his high-flow oxygen concentrator arrive tomorrow. He felt that if he waited until tomorrow to come in that he would of . He called EMS and received a nebulizer treatment in route to the hospital. He reports some improvement of his respiratory symptoms with the nebulizer treatment. However in the ER the patient attempted of refused a nebulizer treatment as he did not like how it made him feel. He eventually agreed to an albuterol inhaler in the ER. Patient does report gradual loss of weight. However review of his outpatient reports demonstrates that the patient's weight has been stable since September 2019. He reports normal bowel movements without hematochezia or melena. He has not had any urinary symptoms. He denies any chest pain or palpitations. Review of Systems Review of Systems: Narrative: 12 systems were reviewed with pertinent positives and negatives per HPI. Except as documented in the HPI, all other systems were reviewed and are negative. 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 Chronic respiratory failure with hypoxia and hypercapnia On 5 L home O2 COPD (chronic obstructive pulmonary disease) Diastolic dysfunction HLD (hyperlipidemia) Hypertension ILD (interstitial lung disease) NICK (obstructive sleep apnea) Intolerant to CPAP therapy Pulmonary hypertension Surgical History Surgical History (Updated 04/30/20 @ 23:01 by Tonia Baires DO) H/O rectal polypectomy History of colonoscopy History of removal of pigmented skin lesion Hx of tonsillectomy Family History Family History Mother Age older than 80 years Father , Around 50 years old Acute myocardial infarction Social History Social History (Updated 05/01/20 @ 01:37 by Tonia Baires DO) Social History: The patient lives with his . He has been in quarantine since December. His is his durable power employment law attorney for healthcare. He has 1 son. He quit tobacco in 1968 after smoking a pack a day for 10 years. 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 He is a [place] . Denies any alcohol or drug use. 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 Primary care physician: Dr. Fabián Logan Code status: Full code. The patient would like his to be his surrogate decision maker. He would not want to be intubated long-term. He does not want a tracheostomy. He does have a living will. Smoking packs per day: 1 Smoking cigarettes per day: 20.0 Years smoked: 10 Smoking pack-years: 10.00 Smoking status: Former smoker Tobacco type: cigarettes Second hand tobacco smoke exposure: No Alcohol intake: never Substance use: never Gender identity (if verbalized by the patient): Male Spiritual care concerns: No Meds Home Medications and Allergies Home Medications
--- NOTE | 2020-04-30 23:19 | ADMGEN ---
This patient, Marino Steiner, was admitted to [facility] S[facility] Room 330-01. Patient/family oriented to hospital policies and general routines including ID bracelet, bed and alarms, visiting hours, pain management, procedures, bathroom and other care routines, personal items, smoking policy, room service/diet, and visiting hours. Valuables list has been completed. Information on how to activate the Rapid Response Team has been discussed. Patient/Family are encouraged to report perceived risks to care and to ask questions if they do not understand what they are told or what they should do.
[2020-04-30] MEDS: methylPREDNISolone SOD SUCC 125 MG VIAL 60 MG IV PUSH (23:43)
[2020-05-01] VITALS (14 sets, daily range): BP systolic 116–139; BP diastolic 48–64; PULSE 64–96; RESP 20–32; TEMP 35.9–36.7; O2SAT 92–100; BMI 19.8
[2020-05-01] MEDS: methylPREDNISolone SOD SUCC 125 MG VIAL 60 MG IV PUSH ×3 (06:46→20:34)
[2020-05-01] MEDS: DIVALPROEX SODIUM SPRINKLE 125 MG CAP.DR PO ×3 (06:46→23:46)
[2020-05-01] MEDS: ALBUTEROL SULFATE (*SP) AEROSOL 1 PUFF 6 PUFF INHALATION ×4 (08:07→20:40)
--- NOTE | 2020-05-01 08:46 | PC.NURSE ---
2300 Tried to decrease patient's oxygen but he refused and stated that he needed more. Patient was educated about CO2 level and COPD.
[2020-05-01] MEDS: FINASTERIDE 5 MG TABLET PO (11:57)
[2020-05-01] MEDS: ATORVASTATIN 40 MG TABLET PO (11:57)
[2020-05-01] MEDS: ASPIRIN 81 MG ENTERIC TABLET PO (11:57)
[2020-05-01] MEDS: CLOPIDOGREL BISULFATE 75 MG TABLET PO (11:57)
[2020-05-01] MEDS: ENOXAPARIN 40 MG/0.4 ML SYRINGE SUB-Q (11:57)
[2020-05-01] MEDS: MULTIVITAMINS /C LUTEIN (CENTRUM SILVER) TABLET *BKC 1 TAB PO (11:58)
[2020-05-01] MEDS: PANTOPRAZOLE 40 MG TABLET PO (11:58)
--- NOTE | 2020-05-01 16:40 | PM.IMPN ---
Progress Note: A&P Assessment and Plan (1) Community acquired pneumonia: Qualifiers: Laterality: unspecified laterality Qualified Code(s): J18.9 - Pneumonia, unspecified organism Code(s): J18.9 - Pneumonia, unspecified organism Status: Acute Assessment and Plan: WBC minimally elevated yesterday. CXR shows patchy bilateral airspace opacities, consistent with atelectasis versus pneumonia. Blood cultures pending. Sputum culture to be collected Continue antibiotic therapy with azithromycin and Rocephin. Monitor CBC Will get urine antigens COVID-19 testing pending Monitor closely. Pulmonology consulted and appreciate input (2) Acute and chronic respiratory failure: Code(s): J96.20 - Acute and chronic respiratory failure, unspecified whether with hypoxia or hypercapnia Status: Acute Assessment and Plan: Due to community-acquired pneumonia and COPD exacerbation. Continue antibiotic therapy with Rocephin and azithromycin. Patient received 1 dose of Solu-Medrol in the ER will continue Solu-Medrol 60 mg IV q.12 hours. Maintain sats between 90-94% unless specified by Pulmonology (3) COPD exacerbation: Code(s): J44.1 - Chronic obstructive pulmonary disease with (acute) exacerbation Status: Acute Assessment and Plan: Scattered wheezing noted on exam today; patient breathing easier today. Continue steroid therapy as discussed above. Albuterol inhaler has been ordered q.i.d. Pulmonology has been consulted and appreciate input (4) Hypertension: Code(s): I10 - Essential (primary) hypertension Status: Chronic Assessment and Plan: BP reasonable at 110s this afternoon Continue home Coreg (5) BPH (benign prostatic hyperplasia): Code(s): N40.0 - Benign prostatic hyperplasia without lower urinary tract symptoms Status: Chronic Assessment and Plan: No acute issues at this moment Continue home finasteride (6) Anxiety: Code(s): F41.9 - Anxiety disorder, unspecified Status: Chronic Assessment and Plan: Per nursing, patient very anxious this morning; low dose ativan given as a one time dose with improvement of symptoms Monitor closely Consider ativan if needed (7) Anemia: Code(s): D64.9 - Anemia, unspecified Status: Chronic Assessment and Plan: Appears to be at his baseline upon review of labs Monitor for signs of bleeding (8) 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 No acute issues continue home aspirin and plavix (9) Diastolic dysfunction: Code(s): I51.89 - Other ill-defined heart diseases Status: Chronic Assessment and Plan: No acute issues. Appears to be well compensated/euvolemic on exam Continue Coreg Subjective Date/time seen: 05/01/20 16:40 Interval history: Patient is a 74 yo M known to me from his recent hospitalization in 02/2020 with history of hypertension, COPD and interstitial lung disease on chronic home O2 who is here for treatment of PNA and COPD exacerbation. PAtient states he overall is breathing better today then yesterday. Less SOB today but still has a cough. He notes slight blood streaking in his sputum; notes this happened last hospital admission and resolved. He notes having SOB at night time that wakes him out of his sleep the past several nights. Otherwise has no other complaints. Denies f/c/s, headaches, dizziness, lightheadedness, cp/palpitations,
[2020-05-01] MEDS: carvediloL 6.25 MG TABLET PO (20:33)
[2020-05-02] VITALS (13 sets, daily range): BP systolic 108–126; BP diastolic 48–57; PULSE 57–85; RESP 18–22; TEMP 36.1–36.6; O2SAT 95–100
[2020-05-02] MEDS: DIVALPROEX SODIUM SPRINKLE 125 MG CAP.DR PO ×4 (05:46→23:56)
[2020-05-02 07:01] LABS: Basophils Percent Auto 0.1 % (0.2-1.2); Hematocrit 32.8 % (42.0-52.0); Hemoglobin 10.9 g/dL (14.0-18.0); Immature Granulocyte Absolute 0.08 K/mm3 (0.00-0.031); Immature Granulocyte Percent A 0.6 % (0-0.5); Lymphocytes Absolute Auto 1.35 K/mm3 (0.9-3.2); Lymphocytes Percent Auto 9.9 % (18.3-44.2); Mean Corpuscular HGB Conc 33.2 g/dl (32-36); Mean Corpuscular Hemoglobin 28.9 pg (26-34); Monocytes Absolute Auto 0.7 K/mm3 (0.1-0.6); Monocytes Percent Auto 5.4 % (2.6-8.5); Neutrophils Absolute Auto 11.5 K/mm3 (1.3-6.7); Platelet Count Result 235 k/mm3 (150-375); Red Blood Count 3.77 M/mm3 (4.6-6.20); Red Cell Distribution Width 13.7 % (11.5-14.5); White Blood Count 13.7 K/mm3 (4.5-10.0)
[2020-05-02 07:13] LABS: Blood Urea Nitrogen 28 mg/dL (9-20); Calcium 8.5 mg/dL (8.4-10.2); Carbon Dioxide 31 mmol/L (22-30); Chloride 100 mmol/L (98-107); Estimated CRCL calculation 83 ml/min; Estimated Glomerular Filt Rate > 60; Glucose 174 mg/dL (75-110); Magnesium 1.8 mg/dL (1.6-2.3); Potassium 4.3 mmol/L (3.4-5.0); Sodium 135 mmol/L (137-145)
[2020-05-02] MEDS: ALBUTEROL SULFATE (*SP) AEROSOL 1 PUFF 6 PUFF INHALATION ×4 (07:36→20:36)
[2020-05-02] MEDS: PANTOPRAZOLE 40 MG TABLET PO (09:16)
[2020-05-02] MEDS: methylPREDNISolone SOD SUCC 125 MG VIAL 60 MG IV PUSH ×2 (09:16→20:54)
[2020-05-02] MEDS: ASPIRIN 81 MG ENTERIC TABLET PO (09:16)
[2020-05-02] MEDS: CLOPIDOGREL BISULFATE 75 MG TABLET PO (09:16)
[2020-05-02] MEDS: ENOXAPARIN 40 MG/0.4 ML SYRINGE SUB-Q (09:17)
[2020-05-02] MEDS: ATORVASTATIN 40 MG TABLET PO (09:17)
[2020-05-02] MEDS: carvediloL 6.25 MG TABLET PO ×2 (09:17→20:55)
[2020-05-02] MEDS: SACCHAROMYCES BOULARDII 250 MG CAPSULE PO ×3 (09:18→16:48)
[2020-05-02] MEDS: FINASTERIDE 5 MG TABLET PO (09:18)
[2020-05-02] MEDS: MULTIVITAMINS /C LUTEIN (CENTRUM SILVER) TABLET *BKC 1 TAB PO (09:18)
--- NOTE | 2020-05-02 10:41 | PC.NURSE ---
CALLED CARE COORDINATION AND LEFT MESSAGE THAT WANTS [facility] NOTIIFIED FOR HOME 02 BEFORE HE IS DISCHARGED TO HOME.
[2020-05-02 13:34] LABS: SARS-CoV-2 RNA PCR Negative
--- NOTE | 2020-05-02 16:39 | PM.IMPN ---
Progress Note: A&P Assessment and Plan (1) Community acquired pneumonia: Qualifiers: Laterality: unspecified laterality Qualified Code(s): J18.9 - Pneumonia, unspecified organism Code(s): J18.9 - Pneumonia, unspecified organism Status: Acute Assessment and Plan: WBC slightly worse today to 13.7k. CXR shows patchy bilateral airspace opacities, consistent with atelectasis versus pneumonia. Blood cultures NGTD x2. Sputum culture to be collected Continue antibiotic therapy with azithromycin and Rocephin. Monitor CBC Urine antigens pending; uncollected COVID-19 testing negative Monitor closely. Pulmonology consulted and appreciate input (2) Acute and chronic respiratory failure: Code(s): J96.20 - Acute and chronic respiratory failure, unspecified whether with hypoxia or hypercapnia Status: Acute Assessment and Plan: Due to community-acquired pneumonia and COPD exacerbation. Continue antibiotic therapy with Rocephin and azithromycin. Will decrease Solu-Medrol frequency to 60 mg IV q.24 hours. tomorrow Maintain sats between 90-94% unless specified by Pulmonology (3) COPD exacerbation: Code(s): J44.1 - Chronic obstructive pulmonary disease with (acute) exacerbation Status: Acute Assessment and Plan: Scattered wheezing noted on exam today; Some improvement today Continue steroid therapy as discussed above. Albuterol inhaler has been ordered q.i.d. Pulmonology has been consulted and appreciate input (4) Hypertension: Code(s): I10 - Essential (primary) hypertension Status: Chronic Assessment and Plan: BP reasonable at 100s this afternoon Continue home Coreg (5) BPH (benign prostatic hyperplasia): Code(s): N40.0 - Benign prostatic hyperplasia without lower urinary tract symptoms Status: Chronic Assessment and Plan: No acute issues at this moment Continue home finasteride (6) Anxiety: Code(s): F41.9 - Anxiety disorder, unspecified Status: Chronic Assessment and Plan: No acute issues today. 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 No acute issues continue home aspirin and plavix (9) Diastolic dysfunction: Code(s): I51.89 - Other ill-defined heart diseases Status: Chronic Assessment and Plan: No acute issues. Appears to be well compensated/euvolemic on exam Continue Coreg Subjective Date/time seen: 05/02/20 16:39 Interval history: Patient is a 74 yo M known to me from his recent hospitalization in 02/2020 with history of hypertension, COPD and interstitial lung disease on chronic home O2 who is here for treatment of PNA and COPD exacerbation. Patient states he thinks he is not breathing better today, but after reassurance that his oxygen requirement actually improved, he states he thinks his breathing is about the same as yesterday. His cough is still present with slight blood streaking in his sputum. Otherwise has no other complaints. Tolerating diet, having BMs. Denies f/c/s, headaches, dizziness, lightheadedness, cp/palpitations, n/v/d/c, abd pain, changes in BMs, dysuria, hematuria, cloudy urine, calf pain/swelling. Review of Systems Review of Syste
--- NOTE | 2020-05-02 18:32 | PM.CNPUL ---
History of Present Illness History of Present Illness Consult date: 06/09/20 Requesting physician: Tonia Baires DO Reason for consult: dyspnea Chief complaint: Shortness of breath Narrative: NEW: Marino Steiner is a 74 yo male with COPD, ILD on home O2, admitted with increased shortness of breath for a few days with a mild cough. He was waiting for a new high-flow O2 concentrator to be delivered, however his symptoms worsened. February COVID- swab that was negative. 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 Chronic respiratory failure with hypoxia and hypercapnia On 5 L home O2 COPD (chronic obstructive pulmonary disease) Diastolic dysfunction HLD (hyperlipidemia) Hypertension ILD (interstitial lung disease) NICK (obstructive sleep apnea) Intolerant to CPAP therapy Pulmonary hypertension Surgical History Surgical History (Updated 04/30/20 @ 23:01 by Tonia Baires DO) H/O rectal polypectomy History of colonoscopy History of removal of pigmented skin lesion Hx of tonsillectomy Family History Family History Mother Age older than 80 years Father , Around 50 years old Acute myocardial infarction Social History Social History (Updated 05/01/20 @ 01:37 by Tonia Baires DO) Social History: The patient lives with his . He has been in quarantine since December. His is his durable power staff attorney for healthcare. He has 1 son. He quit tobacco in 1968 after smoking a pack a day for 10 years. 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 He is a [place] . Denies any alcohol or drug use. 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 Primary care physician: Dr. Fabián Logan Code status: Full code. The patient would like his to be his surrogate decision maker. He would not want to be intubated long-term. He does not want a tracheostomy. He does have a living will. Smoking packs per day: 1 Smoking cigarettes per day: 20.0 Years smoked: 10 Smoking pack-years: 10.00 Smoking status: Former smoker Tobacco type: cigarettes Second hand tobacco smoke exposure: No Alcohol intake: never Substance use: never Gender identity (if verbalized by the patient): Male Spiritual care concerns: No Meds Home Medications and Allergies Home Medications Medication Instructions Recorded Confirmed Type divalproex 125 mg capsule,delayed 125 mg PO QID 10/25/19 05/01/20 History release sprinkle finasteride 5 mg tablet 5 mg PO DAILY 10/25/19 05/01/20 History multivitamin-ferrous 1 tablet PO DAILY 10/25/19 05/01/20 History fumarate-folic acid 18 mg-400 mcg tablet aspirin [Adult Low Dose Aspirin] 81 mg PO DAILY 05/01/20 05/01/20 History atorvastatin 40 mg PO DAILY 05/01/20 05/01/20 History carvedilol 6.25 mg PO BID 05/01/20 05/01/20 History clopidogrel 75 mg PO DAILY 05/01/20 05/01/20 History omeprazole 20 mg PO DAILY 05/01/20 05/01/20 History Saccharomyces boulardii [Florastor] 250 mg PO TID #21 cap 05/04/20 Rx azithromycin 500 mg PO 2000 1 Days #1 tablet 05/04/20 Rx cefdinir 300 mg PO Q12HR #5 cap 05/04/20 Rx prednisone 10 mg PO DAILY #30 tablet 05/04/20 Rx alprazolam 0.5 mg tablet 0.5 mg PO BID PRN #30 tablet 05/07/20 Rx budesonide-formoterol HFA 160 2 puff INHALATION Q12H #10.2 gm 05/12/20 Rx mcg-4.5 mcg/actuation aerosol inhaler Allergies Allergy/AdvReac Type Severity Reaction Status Date / Time Contrast Media Allergy Mild Hives / Uncoded 03/29/20 06:50 Red Face Vital Signs Vital Signs - 24 hr 05/01/20 20:00 05/01/20 20:33 05/01/20 22:00 Temperature 36.2 C
[2020-05-02] MEDS: MELATONIN 3 MG TABLET PO (21:52)
[2020-05-03] VITALS (8 sets, daily range): BP systolic 121–131; BP diastolic 51–62; PULSE 53–65; RESP 16–20; TEMP 36.4–36.7; O2SAT 94–100
[2020-05-03] MEDS: DIVALPROEX SODIUM SPRINKLE 125 MG CAP.DR PO ×3 (05:55→17:42)
[2020-05-03 08:05] LABS: Basophils Percent Auto 0.1 % (0.2-1.2); Hematocrit 34.3 % (42.0-52.0); Hemoglobin 11.2 g/dL (14.0-18.0); Immature Granulocyte Absolute 0.08 K/mm3 (0.00-0.031); Immature Granulocyte Percent A 0.6 % (0-0.5); Lymphocytes Absolute Auto 1.17 K/mm3 (0.9-3.2); Lymphocytes Percent Auto 8.8 % (18.3-44.2); Mean Corpuscular HGB Conc 32.7 g/dl (32-36); Mean Corpuscular Hemoglobin 28.7 pg (26-34); Mean Corpuscular Volume 87.9 fl (80-100); Mean Platelet Volume 10.4 fl (7.4-10.4); Monocytes Absolute Auto 0.4 K/mm3 (0.1-0.6); Monocytes Percent Auto 2.6 % (2.6-8.5); Neutrophils Absolute Auto 11.8 K/mm3 (1.3-6.7); Neutrophils Percent Auto 87.9 % (45.5-73.1); Platelet Count Result 231 k/mm3 (150-375); Red Cell Distribution Width 13.8 % (11.5-14.5); White Blood Count 13.4 K/mm3 (4.5-10.0)
[2020-05-03] MEDS: ALBUTEROL SULFATE (*SP) AEROSOL 1 PUFF 6 PUFF INHALATION ×4 (08:11→20:20)
[2020-05-03 08:15] LABS: Blood Urea Nitrogen 34 mg/dL (9-20); Calcium 8.5 mg/dL (8.4-10.2); Carbon Dioxide 34 mmol/L (22-30); Chloride 100 mmol/L (98-107); Estimated CRCL calculation 72 ml/min; Estimated Glomerular Filt Rate > 60; Glucose 208 mg/dL (75-110); Magnesium 1.8 mg/dL (1.6-2.3); Potassium 4.6 mmol/L (3.4-5.0); Sodium 137 mmol/L (137-145)
[2020-05-03] MEDS: FINASTERIDE 5 MG TABLET PO (09:05)
[2020-05-03] MEDS: ATORVASTATIN 40 MG TABLET PO (09:05)
[2020-05-03] MEDS: MULTIVITAMINS /C LUTEIN (CENTRUM SILVER) TABLET *BKC 1 TAB PO (09:05)
[2020-05-03] MEDS: ASPIRIN 81 MG ENTERIC TABLET PO (09:05)
[2020-05-03] MEDS: PANTOPRAZOLE 40 MG TABLET PO (09:05)
[2020-05-03] MEDS: SACCHAROMYCES BOULARDII 250 MG CAPSULE PO ×2 (09:05→17:42)
[2020-05-03] MEDS: ENOXAPARIN 40 MG/0.4 ML SYRINGE SUB-Q (09:06)
[2020-05-03] MEDS: methylPREDNISolone SOD SUCC 125 MG VIAL 60 MG IV PUSH (09:06)
[2020-05-03] MEDS: carvediloL 6.25 MG TABLET PO ×2 (09:06→20:52)
[2020-05-03] MEDS: CLOPIDOGREL BISULFATE 75 MG TABLET PO (09:06)
--- NOTE | 2020-05-03 12:18 | PM.IMPN ---
Progress Note: A&P Assessment and Plan (1) Community acquired pneumonia: Qualifiers: Laterality: unspecified laterality Qualified Code(s): J18.9 - Pneumonia, unspecified organism Code(s): J18.9 - Pneumonia, unspecified organism Status: Acute Assessment and Plan: WBC slightly improved to 13.4k; possible component of steroids as well. CXR shows patchy bilateral airspace opacities, consistent with atelectasis versus pneumonia. Blood cultures NGTD x2. Sputum culture to be collected Continue antibiotic therapy with azithromycin and Rocephin. Monitor CBC Urine antigens pending; uncollected COVID-19 testing negative Monitor closely. Pulmonology consulted and appreciate input (2) Acute and chronic respiratory failure: Code(s): J96.20 - Acute and chronic respiratory failure, unspecified whether with hypoxia or hypercapnia Status: Acute Assessment and Plan: Due to community-acquired pneumonia and COPD exacerbation. Continue antibiotic therapy with Rocephin and azithromycin. Will continue Solu-Medrol 60 mg IV q.24 hours; likely discharge on steroid taper Maintain sats between 90-94% unless specified by Pulmonology (3) COPD exacerbation: Code(s): J44.1 - Chronic obstructive pulmonary disease with (acute) exacerbation Status: Acute Assessment and Plan: Scattered wheezing noted on exam today; Some improvement today Continue steroid therapy as discussed above. Albuterol inhaler has been ordered q.i.d. Pulmonology has been consulted and appreciate input (4) Hypertension: Code(s): I10 - Essential (primary) hypertension Status: Chronic Assessment and Plan: BP reasonable at 120s this morning Continue home Coreg (5) BPH (benign prostatic hyperplasia): Code(s): N40.0 - Benign prostatic hyperplasia without lower urinary tract symptoms Status: Chronic Assessment and Plan: No acute issues at this moment Continue home finasteride (6) Anxiety: Code(s): F41.9 - Anxiety disorder, unspecified Status: Chronic Assessment and Plan: No acute issues today. 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 No acute issues continue home aspirin and plavix (9) Diastolic dysfunction: Code(s): I51.89 - Other ill-defined heart diseases Status: Chronic Assessment and Plan: No acute issues. Appears to be well compensated/euvolemic on exam Continue Coreg Subjective Date/time seen: 05/03/20 12:18 Interval history: Patient is a 74 yo M known to me from his recent hospitalization in 02/2020 with history of hypertension, COPD and interstitial lung disease on chronic home O2 who is here for treatment of PNA and COPD exacerbation. Patient states he thinks his breathing is maybe slightly better today. His cough is improving with less bloody streaking. Otherwise has no other complaints. He thinks overall he has improved. He may feel comfortable leaving tomorrow if his breathing improves some more; he is also concerned about his oxygen being delivered on Tuesday. Tolerating diet, having BMs. Denies f/c/s, headaches, dizziness, lightheadedness, cp/palpitations, n/v/d/c, abd pain, changes in BMs, dysuria
[2020-05-03] MEDS: MELATONIN 3 MG TABLET PO (21:12)
[2020-05-04] MEDS: DIVALPROEX SODIUM SPRINKLE 125 MG CAP.DR PO ×2 (00:54→06:20)
[2020-05-04 05:51] LABS: Basophils Percent Auto 0.1 % (0.2-1.2); Hematocrit 31.7 % (42.0-52.0); Hemoglobin 10.4 g/dL (14.0-18.0); Immature Granulocyte Absolute 0.04 K/mm3 (0.00-0.031); Immature Granulocyte Percent A 0.4 % (0-0.5); Lymphocytes Absolute Auto 1.88 K/mm3 (0.9-3.2); Lymphocytes Percent Auto 17.3 % (18.3-44.2); Mean Corpuscular HGB Conc 32.8 g/dl (32-36); Mean Corpuscular Hemoglobin 28.7 pg (26-34); Mean Corpuscular Volume 87.6 fl (80-100); Mean Platelet Volume 10.1 fl (7.4-10.4); Monocytes Absolute Auto 0.8 K/mm3 (0.1-0.6); Monocytes Percent Auto 7.5 % (2.6-8.5); Neutrophils Absolute Auto 8.1 K/mm3 (1.3-6.7); Neutrophils Percent Auto 74.7 % (45.5-73.1); Platelet Count Result 186 k/mm3 (150-375); Red Blood Count 3.62 M/mm3 (4.6-6.20); Red Cell Distribution Width 13.8 % (11.5-14.5); White Blood Count 10.9 K/mm3 (4.5-10.0)
[2020-05-04 06:00] VITALS: BP 140/51; PULSE 51; RESP 18; TEMP 36.4; O2SAT 100
[2020-05-04 06:03] LABS: Blood Urea Nitrogen 33 mg/dL (9-20); Calcium 8.2 mg/dL (8.4-10.2); Carbon Dioxide 35 mmol/L (22-30); Chloride 100 mmol/L (98-107); Estimated CRCL calculation 72 ml/min; Estimated Glomerular Filt Rate > 60; Glucose 165 mg/dL (75-110); Magnesium 1.8 mg/dL (1.6-2.3); Potassium 4.3 mmol/L (3.4-5.0); Sodium 137 mmol/L (137-145)
[2020-05-04] MEDS: ALBUTEROL SULFATE (*SP) AEROSOL 1 PUFF 6 PUFF INHALATION (08:18)
[2020-05-04 08:20] VITALS: O2SAT 99
--- NOTE | 2020-05-04 09:34 | P.DS_ITS ---
DS: Admitting Diagnosis Admitting Diagnosis Admitting Diagnosis: Pneumonia, unspecified organism DS: Discharge Diagnosis Discharge Diagnosis (1) Community acquired pneumonia: Qualifiers: Laterality: unspecified laterality Qualified Code(s): J18.9 - Pneumonia, unspecified organism Code(s): J18.9 - Pneumonia, unspecified organism Status: Acute Assessment and Plan: WBC slightly improved to 10.9k; possible component of steroids as well. CXR shows patchy bilateral airspace opacities, consistent with atelectasis versus pneumonia. Blood cultures NGTD x2. Sputum culture collected today per patient * Discharge on antibiotic therapy with azithromycin and cefdinir. Azithromycin to be completed tonight; cedinir through 05/06 * Urine antigens pending * COVID-19 testing negative * Pulmonology consulted and appreciate input * F/u with Pulmonology per their instructions; f/u with PCP as well (2) Acute and chronic respiratory failure: Code(s): J96.20 - Acute and chronic respiratory failure, unspecified whether with hypoxia or hypercapnia Status: Acute Assessment and Plan: Due to community-acquired pneumonia and COPD exacerbation. * Continue antibiotic therapy with cefdinir and azithromycin after discharge * Solu-Medrol 60 mg IV q.24 hours during stay; discharge on steroid taper * Maintain sats between 90-94% unless specified by Pulmonology (3) COPD exacerbation: Code(s): J44.1 - Chronic obstructive pulmonary disease with (acute) exacerbation Status: Acute Assessment and Plan: Minimal wheezing noted on exam today; improvement * Continue steroid therapy as discussed above. * Albuterol inhaler has been ordered q.i.d. during stay * Pulmonology has been consulted and appreciate input (4) Hypertension: Code(s): I10 - Essential (primary) hypertension Status: Chronic Assessment and Plan: BP reasonable at 140s this morning * Continue home Coreg (5) BPH (benign prostatic hyperplasia): Code(s): N40.0 - Benign prostatic hyperplasia without lower urinary tract symptoms Status: Chronic Assessment and Plan: No acute issues at this moment * Continue home finasteride (6) Anxiety: Code(s): F41.9 - Anxiety disorder, unspecified Status: Chronic Assessment and Plan: No acute issues today. * Monitor closely * Consider ativan if needed (7) Anemia: Code(s): D64.9 - Anemia, unspecified Status: Chronic Assessment and Plan: Appears to be at his baseline upon review of labs * Monitor for signs of bleeding (8) 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 No acute issues * continue home aspirin and plavix (9) Diastolic dysfunction: Code(s): I51.89 - Other ill-defined heart diseases Status: Chronic Assessment and Plan: No acute issues. Appears to be well compensated/euvolemic on exam * Continue Coreg DS: Summary Hospital Course Reason for hospitalization: CAP, COPD exacerbation, acute on chronic respiratory failure Hospital Course:
--- NOTE | 2020-05-04 09:34 | PM.DS ---
DS: Admitting Diagnosis Admitting Diagnosis Admitting Diagnosis: Pneumonia, unspecified organism DS: Discharge Diagnosis Discharge Diagnosis (1) Community acquired pneumonia: Qualifiers: Laterality: unspecified laterality Qualified Code(s): J18.9 - Pneumonia, unspecified organism Code(s): J18.9 - Pneumonia, unspecified organism Status: Acute Assessment and Plan: WBC slightly improved to 10.9k; possible component of steroids as well. CXR shows patchy bilateral airspace opacities, consistent with atelectasis versus pneumonia. Blood cultures NGTD x2. Sputum culture collected today per patient Discharge on antibiotic therapy with azithromycin and cefdinir. Azithromycin to be completed tonight; cedinir through 05/06 Urine antigens pending COVID-19 testing negative Pulmonology consulted and appreciate input F/u with Pulmonology per their instructions; f/u with PCP as well (2) Acute and chronic respiratory failure: Code(s): J96.20 - Acute and chronic respiratory failure, unspecified whether with hypoxia or hypercapnia Status: Acute Assessment and Plan: Due to community-acquired pneumonia and COPD exacerbation. Continue antibiotic therapy with cefdinir and azithromycin after discharge Solu-Medrol 60 mg IV q.24 hours during stay; discharge on steroid taper Maintain sats between 90-94% unless specified by Pulmonology (3) COPD exacerbation: Code(s): J44.1 - Chronic obstructive pulmonary disease with (acute) exacerbation Status: Acute Assessment and Plan: Minimal wheezing noted on exam today; improvement Continue steroid therapy as discussed above. Albuterol inhaler has been ordered q.i.d. during stay Pulmonology has been consulted and appreciate input (4) Hypertension: Code(s): I10 - Essential (primary) hypertension Status: Chronic Assessment and Plan: BP reasonable at 140s this morning Continue home Coreg (5) BPH (benign prostatic hyperplasia): Code(s): N40.0 - Benign prostatic hyperplasia without lower urinary tract symptoms Status: Chronic Assessment and Plan: No acute issues at this moment Continue home finasteride (6) Anxiety: Code(s): F41.9 - Anxiety disorder, unspecified Status: Chronic Assessment and Plan: No acute issues today. 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 No acute issues continue home aspirin and plavix (9) Diastolic dysfunction: Code(s): I51.89 - Other ill-defined heart diseases Status: Chronic Assessment and Plan: No acute issues. Appears to be well compensated/euvolemic on exam Continue Coreg DS: Summary Hospital Course Reason for hospitalization: CAP, COPD exacerbation, acute on chronic respiratory failure Hospital Course: Patient is a 74 yo M with history of hypertension, COPD, chronic respiratory failure (appears to be on up to 5L at home and was awaiting HFNC to be delivered to his house), and interstitial lung disease on chronic home O2 and recent hospital admission end of February of this year for COPD exacerbation who presented to the ER via EMS on 04/30 with complaints of increased shortness of breath for 2 days. In the ED, johann
[2020-05-04] MEDS: ATORVASTATIN 40 MG TABLET PO (09:35)
[2020-05-04 09:36] VITALS: PULSE 70
[2020-05-04] MEDS: carvediloL 6.25 MG TABLET PO (09:36)
[2020-05-04] MEDS: CLOPIDOGREL BISULFATE 75 MG TABLET PO (09:36)
[2020-05-04] MEDS: ASPIRIN 81 MG ENTERIC TABLET PO (09:36)
[2020-05-04] MEDS: FINASTERIDE 5 MG TABLET PO (09:37)
[2020-05-04] MEDS: MULTIVITAMINS /C LUTEIN (CENTRUM SILVER) TABLET *BKC 1 TAB PO (09:37)
[2020-05-04] MEDS: PANTOPRAZOLE 40 MG TABLET PO (09:37)
[2020-05-04] MEDS: SACCHAROMYCES BOULARDII 250 MG CAPSULE PO (09:38)
[2020-05-04] MEDS: methylPREDNISolone SOD SUCC 125 MG VIAL 60 MG IV PUSH (09:38)
[2020-05-04] MEDS: ENOXAPARIN 40 MG/0.4 ML SYRINGE SUB-Q (09:39)
[2020-05-04] MEDS: CEFDINIR 300 MG CAPSULE PO (12:07)
[2020-05-07 14:34] LABS: Pneumococcal Antigen Urine Not Detected (Not Detected)
[2020-05-09 00:06] LABS: Legionella pneumophila Ag Ur Not Detected (Not Detected)
== END 2020-05-04 13:00 | disposition home or self-care (01) | DRG 194 ==
LOC: ANHED 20:52 → ANH3MEDSUR 21:25
PROVIDERS: Emergency Medicine; Physician Assistant; Admitting Provider Internal Medicine; Emergency Provider Emergency Medicine; PCP Emergency Medicine; Visit Provider Internal Medicine
DX: J18.9 Pneumonia, unspecified organism (principal); J96.11 Chronic respiratory failure with hypoxia; J44.1 Chronic obstructive pulmonary disease with (acute) exacerbation; J44.0 Chronic obstructive pulmonary disease with (acute) lower respiratory infection; R64 Cachexia; Z68.1 Body mass index [BMI] 19.9 or less, adult; Z20.828 Contact with and (suspected) exposure to other viral communicable diseases; N40.0 Benign prostatic hyperplasia without lower urinary tract symptoms; I10 Essential (primary) hypertension; E78.5 Hyperlipidemia, unspecified; F41.9 Anxiety disorder, unspecified; D64.9 Anemia, unspecified; I51.89 Other ill-defined heart diseases; G47.33 Obstructive sleep apnea (adult) (pediatric); I27.20 Pulmonary hypertension, unspecified; Z99.81 Dependence on supplemental oxygen; Z86.73 Personal history of transient ischemic attack (TIA), and cerebral infarction without residual deficits; Z87.891 Personal history of nicotine dependence
CPT/HCPCS: 36415; 71045; 80048; 83735; 83880; 85025; 87040; 87449; 87635; 87899; 94640; 96361; 96365; 96367; 96375; 97161; 97166; 99285; A9270; C9803; J0456; J0696; J1650; J2060; J2930; J3475; J7040; U0003

== ENCOUNTER 2020-06-16 16:48 | Inpatient (IN) | payer OTHER, SELFPAY ==
--- NOTE | ~2020-06-16 | XR_ITS ---
EXAMINATION: XR barium swallow modified DATE: 06/18/2020 11:54 INDICATION: Recurrent pneumonia. TECHNIQUE: Modified barium esophagram was performed by myself to administered fluoroscopy, in conjun ction with speech pathologist who administered barium in varying consistencies as per speech patholog ist documentation. This was recorded on tape. A single fluoroscopic spot image was recorded. The DAP for this procedure was 3.7 Gycm2. Fluoroscopy exposure time was 2.0 minutes. FINDINGS: Oral stage: Adequate function. Pharyngeal phase: Reduced laryngeal elevation, reduced tongue base retraction, reduced pharyngeal squ eeze, vallecular and piriform sinus residue. Laryngeal penetration: Present. Aspiration: Present. Laryngeal sensitivity: Absent. IMPRESSION: Swallowing abnormalities as described above. Please refer to speech pathologist findings and specific feeding recommendations. Reviewed, dictated and finalized at location A. IMPRESSION: Swallowing abnormalities as described above. Please refer to speec h pathologist findings and specific feeding recommendations.
--- NOTE | ~2020-06-16 | XR_ITS ---
EXAMINATION: XR chest 1V portable DATE: 06/16/2020 17:52 INDICATION: COPD presenting with shortness of breath and weakness. TECHNIQUE: frontal view of the chest was obtained. COMPARISON: Chest radiograph dated 04/30/2020 FINDINGS: Emphysema with hyperexpansion of the left lung and increased lucency and architectural distortion in the left lower lung zone. No significant change in bilateral diffuse hazy opacities relatively sparin g the left lower lung zone. New opacity in the right mid to lower lung zone consistent with small to moderate right pleural effusion and associated atelectasis and/or pneumonia. Biapical pleural-parench ymal scarring, right greater than left. No pneumothorax or left-sided pleural effusion. Heart size is normal. IMPRESSION: 1. New dense opacity in the right mid to lower lung zone consistent with small pleural effusion and a ssociated atelectasis and/or pneumonia. 2. Otherwise stable appearance of diffuse lung disease, likely combination of emphysema and chronic i nterstitial lung disease. Reviewed, dictated and finalized at location A. IMPRESSION: 1. New dense opacity in the right mid to lower lung zone consistent with small pleural effusion and associated atelectasis and/or pneumonia. 2. Otherwise stable appearance of diffuse lung disease, likely combination of e mphysema and chronic interstitial lung disease.
[2020-06-16 16:52] VITALS: BP 140/72; PULSE 74; RESP 18; TEMP 36.8; O2SAT 100
--- NOTE | 2020-06-16 17:36 | ECG_ITS ---
Measurements Intervals Candor Rate: 71 P: IN: 0 QRS: 60 QRSD: 81 T: 81 QT: 371 QTc: 404 Interpretive Statements SINUS RHYTHM EARLY PRECORDIAL R/S TRANSITION BASELINE ARTIFACT- I, III, AVR, AVL, AVF, V2-V3 BORDERLINE ECG Electronically Signed On 06-16-2020 19:24:14 CDT by Fernie Jones D.O.
[2020-06-16 17:39] VITALS: BP 134/68; PULSE 71; RESP 18; O2SAT 98
--- NOTE | 2020-06-16 18:07 | ED.GENADULT ---
HPI - General Adult General Chief complaint: Shortness of Breath/Dyspnea Stated complaint: SOB Time Seen by Provider: 06/16/20 17:06 Source: patient History of Present Illness HPI narrative: Patient is a 74 y/o male complaining of moderate SOB worsening for several days. He states that supplemental oxygen alleviates his SOB somewhat. He has chronic cough. He denies any chest pain. He states that he has COPD and he is on home O2. He states that he was recently admitted to [facility] for pneumonia and discharged home several days ago. He states that he has been tested for COVID multiple times and all those tests have been negative. Related Data Home Medications Medication Instructions Recorded Confirmed divalproex 125 mg capsule,delayed 125 mg PO QID 10/25/19 05/01/20 release sprinkle finasteride 5 mg tablet 5 mg PO DAILY 10/25/19 05/01/20 multivitamin-ferrous 1 tablet PO DAILY 10/25/19 05/01/20 fumarate-folic acid 18 mg-400 mcg tablet aspirin [Adult Low Dose Aspirin] 81 mg PO DAILY 05/01/20 05/01/20 atorvastatin 40 mg PO DAILY 05/01/20 05/01/20 carvedilol 6.25 mg PO BID 05/01/20 05/01/20 clopidogrel 75 mg PO DAILY 05/01/20 05/01/20 omeprazole 20 mg PO DAILY 05/01/20 05/01/20 Allergies Allergy/AdvReac Type Severity Reaction Status Date / Time Contrast Media Allergy Mild Hives / Uncoded 03/29/20 06:50 Red Face Review of Systems Constitutional: Constitutional: Denies chills, Denies fever(s), Denies headache(s) and Denies weakness Eyes: Eyes: Denies blurry vision ENT: Denies headache(s) and Denies neck pain Cardiovascular: Cardiovascular: Denies chest pain and Reports dyspnea Respiratory: Respiratory: Reports cough and Reports dyspnea Gastrointestinal: Gastrointestinal: Denies abdominal pain, Denies diarrhea, Denies nausea and Denies vomiting Genitourinary: Genitourinary: Denies hematuria and Denies dysuria Musculoskeletal: Musculoskeletal: Denies back pain and Denies neck pain Neurologic: Denies headache(s) and Denies weakness PMFSH Past Medical History Medical History Anemia Anxiety BPH (benign prostatic hyperplasia) With history of urinary incontinence 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 Chronic respiratory failure with hypoxia and hypercapnia On 5 L home O2 COPD (chronic obstructive pulmonary disease) Diastolic dysfunction HLD (hyperlipidemia) Hypertension ILD (interstitial lung disease) NICK (obstructive sleep apnea) Intolerant to CPAP therapy Pulmonary hypertension Surgical History Surgical History H/O rectal polypectomy History of colonoscopy History of removal of pigmented skin lesion Hx of tonsillectomy Family History Family History Mother Age older than 80 years Father , Around 50 years old Acute myocardial infarction Social History Social History Social History: The patient lives with his . He has been in quarantine since December. His is his durable power tax attorney for healthcare. He has 1 son. He quit tobacco in 1968 after smoking a pack a day for 10 years. 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 He is a [place] . Denies any alcohol or drug use. The patient stated that he used to smoke marijuana prior to becoming a police liaison officer. Primary care physician: Dr. Fabián Logan Code status: Full code. The patient would like his to be his surrogate decision maker. He would not want to be intubated long-term. He does not want a tracheostomy. He does have a living will. Smoking packs per day: 1 Smoking cigarettes per day: 20.0 Years smoked: 10 Smoking pack-years: 10.00 Smoking status: Former smoker Tobacco type
[2020-06-16 18:09] LABS: Basophils Percent Auto 0.1 % (0.2-1.2); Eosinophils Absolute Auto 0.1 K/mm3 (0-0.3); Eosinophils Percent Auto 1.1 % (0-4.4); Hematocrit 38.5 % (42.0-52.0); Hemoglobin 13.1 g/dL (14.0-18.0); Immature Granulocyte Absolute 0.08 K/mm3 (0.00-0.031); Lymphocytes Absolute Auto 1.28 K/mm3 (0.9-3.2); Lymphocytes Percent Auto 15.6 % (18.3-44.2); Mean Corpuscular Hemoglobin 29.3 pg (26-34); Mean Corpuscular Volume 86.1 fl (80-100); Mean Platelet Volume 11.2 fl (7.4-10.4); Monocytes Absolute Auto 0.5 K/mm3 (0.1-0.6); Monocytes Percent Auto 6.5 % (2.6-8.5); Neutrophils Absolute Auto 6.2 K/mm3 (1.3-6.7); Neutrophils Percent Auto 75.7 % (45.5-73.1); Platelet Count Result 247 k/mm3 (150-375); Red Blood Count 4.47 M/mm3 (4.6-6.20); Red Cell Distribution Width 14.1 % (11.5-14.5); White Blood Count 8.2 K/mm3 (4.5-10.0)
[2020-06-16 18:16] LABS: Prothrombin Time 12.8 Seconds (11.1-14.7)
[2020-06-16 18:17] LABS: Partial Thromboplastin Time 22.9 SECONDS (22.3-36.8)
[2020-06-16 18:18] LABS: Anion Gap 4 mmol/L (8-16); Blood Urea Nitrogen 18 mg/dL (9-20); Calcium 8.6 mg/dL (8.4-10.2); Carbon Dioxide 35 mmol/L (22-30); Chloride 96 mmol/L (98-107); Estimated CRCL calculation 71 ml/min; Estimated Glomerular Filt Rate > 60; Glucose 227 mg/dL (75-110); Potassium 4.7 mmol/L (3.4-5.0); Sodium 135 mmol/L (137-145)
[2020-06-16 18:30] LABS: NT Pro B Type Natriuretic Pept 196 PG/ML (5-100); Troponin I < 0.012 ng/mL (0.000-0.034)
[2020-06-16 18:48] VITALS: BP 138/60; PULSE 80; RESP 18; O2SAT 98
--- NOTE | 2020-06-16 18:50 | PC.NURSE ---
patient refused to change into hospital gown stating that the hospital always looses his stuff
[2020-06-16 20:55] VITALS: BP 117/88; PULSE 65; RESP 18; TEMP 36.2; O2SAT 100
[2020-06-16 21:15] VITALS: BMI 17.2
[2020-06-16 21:17] VITALS: BP 138/72; PULSE 78; RESP 20; O2SAT 99
--- NOTE | 2020-06-16 22:35 | PM.IMHP ---
H&P: HPI History of Present Illness Date/Time: 06/16/20 22:35 Chief complaint: copd exacerbation/pneumonia Narrative: This is a 74 year old male with known chronic respiratory failure on 6L of oxygen via NC at home with known COPD, Diastolic heart failure and HTN among other comorbidities who was just discharged from [facility] this past Tuesday after he was treated for pneumonia. He was tested for COVID-19 four times while hospitalized 8 days and they were all negative. He tells me that he was supposed to go to rehab but instead they discharged him home. He has been having a hard time at home because he lives with his who has a broken shoulder and can't care for him. He has been sleeping in a recliner and is very uncomfortable. He complains of worsening shortness of breath over the past few days but denies any worsening coughing or wheezing. He denies any recent fevers, chills, chest pain, palpitations, abdominal pain, nausea, vomiting, diarrhea or dysuria. The patient was evaluated in the ER tonight and routine labs were virtually unremarkable. CXR demonstrated a new dense opacity in the right mid to lower lung zone which is likely the pneumonia he was treated for this past week. He is on his home oxygen and saturating well. We were asked to admit the patient to the hospital as ER provider was uncomfortable sending him home. No other complaints. 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 Chronic respiratory failure with hypoxia and hypercapnia On 5 L home O2 COPD (chronic obstructive pulmonary disease) Diastolic dysfunction HLD (hyperlipidemia) Hypertension ILD (interstitial lung disease) NICK (obstructive sleep apnea) Intolerant to CPAP therapy Pulmonary hypertension Surgical History Surgical History H/O rectal polypectomy History of colonoscopy History of removal of pigmented skin lesion Hx of tonsillectomy Family History Family History Mother Age older than 80 years Father , Around 50 years old Acute myocardial infarction Social History Social History Social History: The patient lives with his . He has been in quarantine since December. His is his durable power regulatory attorney for healthcare. He has 1 son. He quit tobacco in 1968 after smoking a pack a day for 10 years. 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 He is a [place] . Denies any alcohol or drug use. 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 Primary care physician: Dr. Fabián Logan Code status: Full code. The patient would like his to be his surrogate decision maker. He would not want to be intubated long-term. He does not want a tracheostomy. He does have a living will. Smoking packs per day: 1 Smoking cigarettes per day: 20.0 Years smoked: 10 Smoking pack-years: 10.00 Smoking status: Former smoker Tobacco type: cigarettes Second hand tobacco smoke exposure: No Alcohol intake: former Substance use: never Substance use type: does not use Gender identity (if verbalized by the patient): Male Spiritual care concerns: No Meds Home Medications and Allergies Home Medications Medication Instructions Recorded Confirmed Type divalproex 125 mg capsule,delayed 125 mg PO QID 10/25/19 05/01/20 History release sprinkle finasteride 5 mg tablet 5 mg PO DAILY 10/25/19 05/01/20 History
[2020-06-17] VITALS (14 sets, daily range): BP systolic 107–141; BP diastolic 59–75; PULSE 63–95; RESP 16–24; TEMP 36.2–36.9; O2SAT 91–100; BMI 17.2
[2020-06-17] MEDS: ACETAMINOPHEN 325 MG TABLET 650 MG PO ×2 (01:32→08:04)
[2020-06-17] MEDS: ALBUTEROL SULFATE NEB 2.5 MG/0.5 ML INH 5 MG INHALATION ×4 (01:34→21:06)
--- NOTE | 2020-06-17 01:37 | PC.NURSE ---
This patient, Marino Steiner, was admitted to 3 [facility] Surg Room 310-01. Patient/family oriented to hospital policies and general routines including ID bracelet, bed and alarms, visiting hours, pain management, procedures, bathroom and other care routines, personal items, smoking policy, room service/diet, and visiting hours. Valuables list has been completed. Information on how to activate the Rapid Response Team has been discussed. Patient/Family are encouraged to report perceived risks to care and to ask questions if they do not understand what they are told or what they should do.
[2020-06-17 06:39] LABS: Basophils Percent Auto 0.1 % (0.2-1.2); Eosinophils Absolute Auto 0.5 K/mm3 (0-0.3); Eosinophils Percent Auto 3.8 % (0-4.4); Hematocrit 31.8 % (42.0-52.0); Hemoglobin 10.7 g/dL (14.0-18.0); Immature Granulocyte Absolute 0.08 K/mm3 (0.00-0.031); Immature Granulocyte Percent A 0.6 % (0-0.5); Lymphocytes Absolute Auto 3.53 K/mm3 (0.9-3.2); Lymphocytes Percent Auto 28.5 % (18.3-44.2); Mean Corpuscular HGB Conc 33.6 g/dl (32-36); Mean Corpuscular Hemoglobin 28.7 pg (26-34); Mean Corpuscular Volume 85.3 fl (80-100); Mean Platelet Volume 10.6 fl (7.4-10.4); Monocytes Absolute Auto 1.2 K/mm3 (0.1-0.6); Neutrophils Absolute Auto 7.1 K/mm3 (1.3-6.7); Platelet Count Result 214 k/mm3 (150-375); Red Blood Count 3.73 M/mm3 (4.6-6.20); Red Cell Distribution Width 13.8 % (11.5-14.5); White Blood Count 12.4 K/mm3 (4.5-10.0)
[2020-06-17 06:57] LABS: Anion Gap 1 mmol/L (8-16); Blood Urea Nitrogen 17 mg/dL (9-20); Calcium 8.2 mg/dL (8.4-10.2); Carbon Dioxide 36 mmol/L (22-30); Chloride 97 mmol/L (98-107); Estimated CRCL calculation 64 ml/min; Estimated Glomerular Filt Rate > 60; Glucose 129 mg/dL (75-110); Magnesium 1.7 mg/dL (1.6-2.3); Potassium 3.7 mmol/L (3.4-5.0); Sodium 134 mmol/L (137-145)
[2020-06-17 09:38] LABS: Hemoglobin A1C 6.2 % (<5.7)
[2020-06-17] MEDS: CEFDINIR 300 MG CAPSULE PO ×2 (12:00→20:13)
[2020-06-17] MEDS: predniSONE 10 MG TABLET PO (12:00)
[2020-06-17] MEDS: metroNIDAZOLE 250 MG TABLET 500 MG PO ×2 (12:45→17:44)
[2020-06-17] MEDS: predniSONE 20 MG TABLET PO (14:19)
--- NOTE | 2020-06-17 14:41 | PM.IMPN ---
Progress Note: A&P Assessment and Plan (1) COPD (chronic obstructive pulmonary disease): Qualifiers: COPD type: unspecified COPD Qualified Code(s): J44.9 - Chronic obstructive pulmonary disease, unspecified Code(s): J44.9 - Chronic obstructive pulmonary disease, unspecified Status: Acute Assessment and Plan: ----- acute on chronic COPD exacerbation. He was pretty wheezy today so we will continue steroids and breathing treatments. I have added Mucinex, sputum production, and a sputum culture today. He is on his home oxygen requirements and doing just fine. I reviewed his discharge summary and it looks like he underwent extensive testing such as a bronchoscopy and sniff test which did not show any abnormalities. He was given Zosyn during his stay and transition to 7 additional days of cefdinir and Flagyl. At this time I am going to continue the oral steroids but if he continues to be wheezy, may consider going back to IV steroids. He could be intermittently aspirating, I am going to get a swallow study. likely discharge 1-2 days. (2) History of recent pneumonia: Code(s): Z87.01 - Personal history of pneumonia (recurrent) Status: Acute Assessment and Plan: -----Continue cefdinir and Flagyl. original in date is 06/19/20. (3) Diastolic dysfunction: Code(s): I51.89 - Other ill-defined heart diseases Status: Chronic Assessment and Plan: -----stable andeuvolemic. Monitor Is and Os, fluid status. Continue Coreg. (4) HLD (hyperlipidemia): Qualifiers: Hyperlipidemia type: mixed hyperlipidemia Qualified Code(s): E78.2 - Mixed hyperlipidemia Code(s): E78.5 - Hyperlipidemia, unspecified Status: Chronic Assessment and Plan: ----Continue atorvastatin. (5) Chronic respiratory failure with hypoxia and hypercapnia: Code(s): J96.11 - Chronic respiratory failure with hypoxia; J96.12 - Chronic respiratory failure with hypercapnia Status: Acute Assessment and Plan: -----Continue home oxygen supplementation. (6) Hypertension: Qualifiers: Hypertension type: unspecified Qualified Code(s): I10 - Essential (primary) hypertension Code(s): I10 - Essential (primary) hypertension Status: Chronic Assessment and Plan: ---- last blood pressure 138/75. Continue coreg PO. (7) Weight loss: Code(s): R63.4 - Abnormal weight loss Status: Acute Assessment and Plan: ----- patient has had weight loss and anorexia over the last year with a 10 lb weight loss. No signs of cancer on his bronch in [place] after a CT chest/abd CT that showed a possible mass in the right lower lobe. He had a colonoscopy and EGD his last hospitalization in [place]. I will check a thyroid and HIV just for completeness sake. (8) Pre-diabetes: Code(s): R73.03 - Prediabetes Status: Acute Assessment and Plan: -----Known by the patient, steroids are not helping this. Educated on a diet. Additional Plan Time Spent With Patient Time with patient: 25 - 35 minutes Subjective Date/time seen: 06/17/20 14:41 Interval history: Pt is a 74-year-old male here for COPD exacerbation and is currently being treated for pneumonia. Patient was seen today and states he feels better than yesterday but still feels weak and has a significant cough. He does feel short of breath but thinks it is because he is more weak. He is requesting rehab therapy. He denies chest pain, shortness of breath, fevers, chills, abdominal pain, or leg swelling. He has had soft stool that started with the steroids but denies liquid bowel movements. He has not been trying to lose weight but has not had much of an appetite. He had extensive workup done at [place] which included a bronch, sniff test, colonoscopy, and EGD. He does not recall having a swallow study Review of
--- NOTE | 2020-06-17 14:55 | PCOTNOTE ---
OT evaluation attempted. Respiratory with patient and just starting breathing treatment. Will attempt OT evaluation at later time.
--- NOTE | 2020-06-17 15:04 | PCSTNOTE ---
Modified Barium Swallow study will be completed in the morning. Interview with patient; patient reported he feels he is having trouble swallowing. Drank water at bedside and no overt signs of aspiration were noted. Therapist will call nurse and inform her of time when it is scheduled.
[2020-06-17] MEDS: ALPRAZolam 0.5 MG TABLET PO (15:27)
[2020-06-17] MEDS: DIVALPROEX SODIUM SPRINKLE 125 MG CAP.DR PO ×2 (17:45→20:13)
[2020-06-17] MEDS: SACCHAROMYCES BOULARDII 250 MG CAPSULE PO (17:45)
[2020-06-17] MEDS: carvediloL 6.25 MG TABLET PO (20:13)
[2020-06-17] MEDS: guaiFENesin 12 HR 600 MG TABCR PO (20:13)
[2020-06-17] MEDS: IPRATROPIUM BR 0.02% INH SOLN 0.5 MG/2.5 ML VIAL INHALATION (21:06)
[2020-06-18] VITALS (16 sets, daily range): BP systolic 103–115; BP diastolic 54–63; PULSE 60–75; RESP 18–20; TEMP 36.3–36.4; O2SAT 96–100
[2020-06-18] MEDS: metroNIDAZOLE 250 MG TABLET 500 MG PO ×4 (00:05→17:15)
[2020-06-18] MEDS: ALBUTEROL SULFATE NEB 2.5 MG/0.5 ML INH 5 MG INHALATION ×4 (03:18→20:23)
[2020-06-18] MEDS: IPRATROPIUM BR 0.02% INH SOLN 0.5 MG/2.5 ML VIAL INHALATION ×4 (03:18→20:23)
[2020-06-18] MEDS: SODIUM CHLOR 3% 15 ML NEB (RESPIRATORY THERAPY) 6 ML INHALATION (05:21)
--- NOTE | 2020-06-18 05:55 | PCRCNOTE ---
Patient was unable to produce a sputum sample. RN aware.
[2020-06-18 06:16] LABS: Hemoglobin 10.7 g/dL (14.0-18.0); Mean Corpuscular HGB Conc 33.4 g/dl (32-36); Mean Corpuscular Volume 86.7 fl (80-100); Platelet Count Result 225 k/mm3 (150-375); Red Blood Count 3.69 M/mm3 (4.6-6.20); Red Cell Distribution Width 13.9 % (11.5-14.5); White Blood Count 10.7 K/mm3 (4.5-10.0)
[2020-06-18 06:33] LABS: Alanine Aminotransferase 19 U/L (4-50); Albumin Level 2.8 g/dL (3.5-5.1); Alkaline Phosphatase 35 U/L (38-126); Anion Gap 2 mmol/L (8-16); Aspartate Amino Transferase 14 U/L (17-59); Bilirubin,Total < 0.1 mg/dL (0.2-1.3); Blood Urea Nitrogen 16 mg/dL (9-20); CRP < 0.5 mg/dL (<1.0); Calcium 8.5 mg/dL (8.4-10.2); Carbon Dioxide 36 mmol/L (22-30); Chloride 98 mmol/L (98-107); Estimated CRCL calculation 73 ml/min; Estimated Glomerular Filt Rate > 60; Glucose 184 mg/dL (75-110); Magnesium 1.8 mg/dL (1.6-2.3); Phosphorus 2.9 mg/dL (2.5-4.5); Potassium 4.5 mmol/L (3.4-5.0); Sodium 136 mmol/L (137-145)
[2020-06-18 07:01] LABS: HIV 1/2 Ab P24 Ag Result Negative (Negative)
[2020-06-18 07:38] LABS: Thyroid Stimulating Hormone Reflex 0.772 uIU/mL (0.465-4.68)
[2020-06-18] MEDS: guaiFENesin 12 HR 600 MG TABCR PO ×2 (09:23→21:22)
[2020-06-18] MEDS: carvediloL 6.25 MG TABLET PO ×2 (09:24→21:22)
[2020-06-18] MEDS: FINASTERIDE 5 MG TABLET PO (09:24)
[2020-06-18] MEDS: DIVALPROEX SODIUM SPRINKLE 125 MG CAP.DR PO ×4 (09:24→21:22)
[2020-06-18] MEDS: CEFDINIR 300 MG CAPSULE PO ×2 (09:24→21:22)
[2020-06-18] MEDS: CLOPIDOGREL BISULFATE 75 MG TABLET PO (09:24)
[2020-06-18] MEDS: MULTIVITAMINS /C LUTEIN (CENTRUM SILVER) TABLET *BKC 1 TAB PO (09:24)
[2020-06-18] MEDS: SACCHAROMYCES BOULARDII 250 MG CAPSULE PO ×3 (09:24→17:15)
[2020-06-18] MEDS: PANTOPRAZOLE 40 MG TABLET PO (09:24)
[2020-06-18] MEDS: ASPIRIN 81 MG ENTERIC TABLET PO (09:25)
[2020-06-18] MEDS: predniSONE 10 MG TABLET 30 MG PO (09:25)
[2020-06-18] MEDS: ATORVASTATIN 40 MG TABLET PO (09:25)
[2020-06-18 14:19] LABS: SARS-CoV-2 RNA PCR Negative
--- NOTE | 2020-06-18 15:14 | PCSTNOTE ---
Please refer to the Modified Barium Swallow Evaluation in the EMR.
--- NOTE | 2020-06-18 16:26 | PM.IMPN ---
Progress Note: A&P Assessment and Plan (1) Recurrent aspiration pneumonia: Code(s): J69.0 - Pneumonitis due to inhalation of food and vomit Status: Acute Assessment and Plan: -----as stated below, the patient was hospitalized and had extensive testing including a bronchoscopy. Today he was found to aspirate on solid and liquids and it was recommended that he started pureed diet with moderate thick liquids. This likely explains why he continues to have issues intermittently. Yesterday he sounded very wheezy and likely had an aspiration event but now is doing better. Will continue cefdinir and Flagyl and adjust his diet. Speech therapy will be ordered. Patient educated about this (2) COPD (chronic obstructive pulmonary disease): Qualifiers: COPD type: unspecified COPD Qualified Code(s): J44.9 - Chronic obstructive pulmonary disease, unspecified Code(s): J44.9 - Chronic obstructive pulmonary disease, unspecified Status: Acute Assessment and Plan: ----- acute on chronic COPD exacerbation. Continue steroids, Mucinex, and wait for sputum. He is on his home oxygen requirements and doing just fine. I reviewed his discharge summary and it looks like he underwent extensive testing such as a bronchoscopy and sniff test which did not show any abnormalities. He was given Zosyn during his stay and transition to 7 additional days of cefdinir and Flagyl. At this time I am going to continue the oral steroids but if he continues to be wheezy, may consider going back to IV steroids. (3) History of recent pneumonia: Code(s): Z87.01 - Personal history of pneumonia (recurrent) Status: Acute Assessment and Plan: -----Continue cefdinir and Flagyl. original in date is 06/19/20. (4) Diastolic dysfunction: Code(s): I51.89 - Other ill-defined heart diseases Status: Chronic Assessment and Plan: -----stable andeuvolemic. Monitor Is and Os, fluid status. Continue Coreg. (5) HLD (hyperlipidemia): Qualifiers: Hyperlipidemia type: mixed hyperlipidemia Qualified Code(s): E78.2 - Mixed hyperlipidemia Code(s): E78.5 - Hyperlipidemia, unspecified Status: Chronic Assessment and Plan: ----Continue atorvastatin. (6) Chronic respiratory failure with hypoxia and hypercapnia: Code(s): J96.11 - Chronic respiratory failure with hypoxia; J96.12 - Chronic respiratory failure with hypercapnia Status: Acute Assessment and Plan: -----Continue home oxygen supplementation. (7) Hypertension: Qualifiers: Hypertension type: unspecified Qualified Code(s): I10 - Essential (primary) hypertension Code(s): I10 - Essential (primary) hypertension Status: Chronic Assessment and Plan: ---- last blood pressure 108/61. Continue coreg PO. (8) Weight loss: Code(s): R63.4 - Abnormal weight loss Status: Acute Assessment and Plan: ----- patient has had weight loss and anorexia over the last year with a 10 lb weight loss. No signs of cancer on his bronch in [place] after a CT chest/abd CT that showed a possible mass in the right lower lobe. He had a colonoscopy and EGD his last hospitalization in [place]. HIV negative (9) Pre-diabetes: Code(s): R73.03 - Prediabetes Status: Acute Assessment and Plan: -----Known by the patient, steroids are not helping this. Educated on a diet. Additional Plan Subjective Date/time seen: 06/18/20 16:26 Interval history: Pt is a 74-year-old male here for COPD exacerbation and is currently being treated for pneumonia. Patient was seen today and we discussed his speech therapy findings. He has never been told that he is aspirating but is willing to work with speech therapy and adjust his diet in hopes of returning to her normal diet eventually. He says he still feels winded and s
[2020-06-18] MEDS: ACETAMINOPHEN 325 MG TABLET 650 MG PO (21:21)
[2020-06-18] MEDS: ALPRAZolam 0.5 MG TABLET PO (21:25)
[2020-06-19] VITALS (9 sets, daily range): BP systolic 107; BP diastolic 51–54; PULSE 59–74; RESP 18–20; TEMP 36.2–36.7; O2SAT 97–99
[2020-06-19] MEDS: metroNIDAZOLE 250 MG TABLET 500 MG PO ×3 (00:48→12:47)
[2020-06-19] MEDS: IPRATROPIUM BR 0.02% INH SOLN 0.5 MG/2.5 ML VIAL INHALATION ×3 (02:33→14:16)
[2020-06-19] MEDS: ALBUTEROL SULFATE NEB 2.5 MG/0.5 ML INH 5 MG INHALATION ×3 (02:33→14:15)
[2020-06-19 06:39] LABS: Hematocrit 31.8 % (42.0-52.0); Hemoglobin 10.5 g/dL (14.0-18.0); Mean Corpuscular Hemoglobin 28.9 pg (26-34); Mean Corpuscular Volume 87.6 fl (80-100); Mean Platelet Volume 10.8 fl (7.4-10.4); Platelet Count Result 223 k/mm3 (150-375); Red Blood Count 3.63 M/mm3 (4.6-6.20); Red Cell Distribution Width 14.5 % (11.5-14.5); White Blood Count 11.1 K/mm3 (4.5-10.0)
[2020-06-19 06:53] LABS: Anion Gap 1 mmol/L (8-16); Blood Urea Nitrogen 20 mg/dL (9-20); Calcium 8.8 mg/dL (8.4-10.2); Carbon Dioxide 38 mmol/L (22-30); Chloride 99 mmol/L (98-107); Estimated CRCL calculation 64 ml/min; Estimated Glomerular Filt Rate > 60; Glucose 107 mg/dL (75-110); Sodium 138 mmol/L (137-145)
--- NOTE | 2020-06-19 06:55 | PCRCNOTE ---
Med unavailable to administer to patient to get a sputum sample.
[2020-06-19] MEDS: SACCHAROMYCES BOULARDII 250 MG CAPSULE PO ×2 (08:19→12:47)
[2020-06-19] MEDS: predniSONE 10 MG TABLET 30 MG PO (08:19)
[2020-06-19] MEDS: CLOPIDOGREL BISULFATE 75 MG TABLET PO (08:20)
[2020-06-19] MEDS: FINASTERIDE 5 MG TABLET PO (08:20)
[2020-06-19] MEDS: MULTIVITAMINS /C LUTEIN (CENTRUM SILVER) TABLET *BKC 1 TAB PO (08:20)
[2020-06-19] MEDS: guaiFENesin 12 HR 600 MG TABCR PO (08:20)
[2020-06-19] MEDS: PANTOPRAZOLE 40 MG TABLET PO (08:20)
[2020-06-19] MEDS: ATORVASTATIN 40 MG TABLET PO (08:20)
[2020-06-19] MEDS: DIVALPROEX SODIUM SPRINKLE 125 MG CAP.DR PO ×2 (08:20→12:47)
[2020-06-19] MEDS: ASPIRIN 81 MG ENTERIC TABLET PO (08:20)
[2020-06-19] MEDS: carvediloL 6.25 MG TABLET PO (08:20)
[2020-06-19] MEDS: CEFDINIR 300 MG CAPSULE PO (08:21)
--- NOTE | 2020-06-19 13:02 | PM.DS ---
DS: Admitting Diagnosis Admitting Diagnosis Admitting Diagnosis: copd exacerbation/pneumonia DS: Discharge Diagnosis Discharge Diagnosis (1) Recurrent aspiration pneumonia: Code(s): J69.0 - Pneumonitis due to inhalation of food and vomit Status: Acute Assessment and Plan: -----as stated below, the patient was hospitalized and had extensive testing including a bronchoscopy. During this hospitalization he was found to aspirate on solid and liquids and it was recommended that he started pureed diet with moderate thick liquids. This likely explains why he continues to have issues intermittently. On admission he sounded very wheezy and likely had an aspiration event but now is doing better. Will continue cefdinir and Flagyl for a few more days and discharge to SNF where he can continue to do speech therapy with a goal of returning to a normal diet. (2) COPD (chronic obstructive pulmonary disease): Qualifiers: COPD type: unspecified COPD Qualified Code(s): J44.9 - Chronic obstructive pulmonary disease, unspecified Code(s): J44.9 - Chronic obstructive pulmonary disease, unspecified Status: Acute Assessment and Plan: ----- acute on chronic COPD exacerbation. Continue steroid nghia. Unable to collect sputum. He is on his home oxygen requirements and doing just fine. I reviewed his discharge summary form his last hospitalization and it looks like he underwent extensive testing such as a bronchoscopy and sniff test which did not show any abnormalities. He was given Zosyn during his stay and transition to 7 additional days of cefdinir and Flagyl. (3) History of recent pneumonia: Code(s): Z87.01 - Personal history of pneumonia (recurrent) Status: Acute Assessment and Plan: -----Continue cefdinir and Flagyl. (4) Diastolic dysfunction: Code(s): I51.89 - Other ill-defined heart diseases Status: Chronic Assessment and Plan: -----stable and euvolemic. (5) HLD (hyperlipidemia): Qualifiers: Hyperlipidemia type: mixed hyperlipidemia Qualified Code(s): E78.2 - Mixed hyperlipidemia Code(s): E78.5 - Hyperlipidemia, unspecified Status: Chronic Assessment and Plan: ----Continue atorvastatin. (6) Chronic respiratory failure with hypoxia and hypercapnia: Code(s): J96.11 - Chronic respiratory failure with hypoxia; J96.12 - Chronic respiratory failure with hypercapnia Status: Acute Assessment and Plan: -----Continue home oxygen supplementation. (7) Hypertension: Qualifiers: Hypertension type: unspecified Qualified Code(s): I10 - Essential (primary) hypertension Code(s): I10 - Essential (primary) hypertension Status: Chronic Assessment and Plan: ---- last blood pressure 107/54. Continue coreg PO. (8) Weight loss: Code(s): R63.4 - Abnormal weight loss Status: Acute Assessment and Plan: ----- patient has had weight loss and anorexia over the last year with a 10 lb weight loss. No signs of cancer on his bronch in [place] after a CT chest/abd CT that showed a possible mass in the right lower lobe. He had a colonoscopy and EGD his last hospitalization in [place]. HIV negative (9) Pre-diabetes: Code(s): R73.03 - Prediabetes Status: Acute Assessment and Plan: -----Known by the patient, steroids are not helping this. Educated on a diet. DS: Summary Hospital Course Reason for hospitalization: Aspiration pneumonia with COPD exacerbation Hospital Course: Patient is 74-year-old male who presented emergency room for wheezing and shortness of breath after being discharged from the hospital at [facility]. Vitals in the ER were temperature 36.8? C, pulse 74, respiratory rate 18, blood pressure 140/72, pulse ox 100 on his home oxygen settings. Initial white blood cell count
--- NOTE | 2020-06-19 15:35 | PC.NURSE ---
Pt has discharge orders. Pt has had IV removed. Pt had discharge orders reviewed, and report was called to receiving facility. Opportunity for questions provided and questions answered to the best of my ability. Ambulance has been called for pt transportation. Pt's home meds and belongings sent with pt.
--- NOTE | 2020-06-25 07:39 | PC.NURSE ---
Blood cx are negative
== END 2020-06-19 15:45 | DRG 178 ==
LOC: ANHED 20:05 → ANH3MEDSUR 20:32
PROVIDERS: Physician Assistant; Admitting Provider Family Medicine; Emergency Provider Emergency Medicine; PCP Emergency Medicine; Visit Provider Family Medicine
DX: J69.0 Pneumonitis due to inhalation of food and vomit (principal); J44.1 Chronic obstructive pulmonary disease with (acute) exacerbation; J96.11 Chronic respiratory failure with hypoxia; J96.12 Chronic respiratory failure with hypercapnia; I50.30 Unspecified diastolic (congestive) heart failure; J84.9 Interstitial pulmonary disease, unspecified; Z20.828 Contact with and (suspected) exposure to other viral communicable diseases; I27.20 Pulmonary hypertension, unspecified; I11.0 Hypertensive heart disease with heart failure; R63.4 Abnormal weight loss; R73.03 Prediabetes; Z99.81 Dependence on supplemental oxygen; Z87.01 Personal history of pneumonia (recurrent); E78.2 Mixed hyperlipidemia; G47.33 Obstructive sleep apnea (adult) (pediatric); N40.0 Benign prostatic hyperplasia without lower urinary tract symptoms; Z79.82 Long term (current) use of aspirin; Z79.899 Other long term (current) drug therapy; Z87.891 Personal history of nicotine dependence
CPT/HCPCS: 36415; 71045; 80048; 80076; 83036; 83735; 83880; 84100; 84443; 84484; 85025; 85027; 85610; 85730; 86140; 86703; 87040; 87635; 92526; 92611; 93005; 94640; 96365; 96367; 97110; 97116; 97161; 97165; 97530; 97535; 99285; A9270; C9803; G0378; G0432; J0456; J0696; J7512; U0003

== ENCOUNTER 2020-07-06 18:57 | Inpatient (IN) | payer OTHER, SELFPAY ==
--- NOTE | ~2020-07-06 | XR_ITS ---
XR chest 1V portable DATE: 07/06/2020 19:57 INDICATION: Cough, hemoptysis TECHNIQUE: Portable AP chest on 07/06/2020 at 1953 hours COMPARISON: Portable AP chest on 06/16/2020 at 1746 hours FINDINGS: There is patchy infiltrate and/or atelectasis in the right mid and lower lung zones. There is mild interstitial prominence, chronic, likely interstitial fibrosis in the left lung. There is blunting of the right costophrenic angle which may be an indication of right pleural effusio n. Right apical capping. Heart size is within normal range. IMPRESSION: Right sided pulmonary infiltrate, increased since 06/16/2020 Reviewed, dictated and finalized at location A.
--- NOTE | ~2020-07-06 | XR_ITS ---
EXAMINATION: XR barium swallow modified DATE: 07/07/2020 11:26 INDICATION: Dysphagia TECHNIQUE: Modified barium esophagram was performed by myself to administered fluoroscopy, in conjun ction with speech pathologist who administered barium in varying consistencies as per speech patholog ist documentation. This was recorded on tape. A single fluoroscopic spot image was recorded. The DAP for this procedure was 3.187 Gycm2. Fluoroscopy exposure time was 5.2 minutes. FINDINGS: Oral stage: Adequate function. Pharyngeal phase: Adequate function. Laryngeal penetration: Present within liquids. Aspiration: Present within liquids. Laryngeal sensitivity: Intermittently present. IMPRESSION: Laryngeal penetration and aspiration with thin liquids. Please refer to speech pathologi st findings and specific feeding recommendations. Reviewed, dictated and finalized at location A. IMPRESSION: Laryngeal penetration and aspiration with thin liquids. Please ref er to speech pathologist findings and specific feeding recommendations.
--- NOTE | ~2020-07-06 | CT_ITS ---
EXAMINATION: CT chest wo con DATE: 07/06/2020 22:15 INDICATION: Pneumonia, hemoptysis TECHNIQUE: Computed tomography (CT) of the chest was performed without intravenous contrast. The dose -length product (DLP) was 143.63 mGy-cm. Automated exposure control and iterative reconstruction tech [place] were employed. COMPARISON: 05/19/2017 FINDINGS: There is severe emphysema. There are moderate size right and small left pleural effusions. There is debris/mucus plugging within the right lower lobe bronchus resulting in right lower lobe col lapsed. Chronic predominantly central groundglass and nodular opacities are seen in the lungs. There are superimposed airspace opacities throughout the left lung and in the right upper and middle lobes. There is a chronic mildly enlarged right lower paratracheal lymph node, likely reactive. The heart s ize is normal. Calcified coronary artery atherosclerosis is noted. There is a [id number] sized sliding hiatal hernia. There is moderate thoracic spondylosis. Nonobstructing left nephrolithiasis i s noted. IMPRESSION: 1. Debris/mucous plugging in the right lower lobe bronchus resulting in right lower lobe collapse. 2. Chronic interstitial lung disease with differential as previously described. 3. Superimposed airspace opacities throughout the left lung and in the right middle and upper lobes, consistent with pneumonia. Reviewed, dictated and finalized at location A. IMPRESSION: 1. Debris/mucous plugging in the right lower lobe bronchus resulting in right l ower lobe collapse. 2. Chronic interstitial lung disease with differential as previously described. 3. Superimposed airspace opacities throughout the left lung and in the right mi ddle and upper lobes, consistent with pneumonia.
[2020-07-06 18:57] VITALS: BP 133/86; PULSE 65; RESP 18; TEMP 36.3; O2SAT 100
--- NOTE | 2020-07-06 19:44 | ECG_ITS ---
Measurements Intervals [place] Rate: 71 P: 109 AK: 159 QRS: 62 QRSD: 85 T: 81 QT: 385 QTc: 419 Interpretive Statements SINUS RHYTHM PRECORDIAL LEAD MISPLACEMENT BORDERLINE T WAVE ABNORMALITY- HIGH LATERAL LEADS BASELINE ARTIFACT- I, II, III, AVR, AVL, V1, V4 BORDERLINE ECG Electronically Signed On 07-07-2020 8:22:10 CDT by Fernie Jones D.O.
[2020-07-06 20:42] VITALS: BP 136/76; PULSE 78; RESP 18; O2SAT 99
[2020-07-06 20:47] LABS: Basophils Percent Auto 0.2 % (0.2-1.2); Hematocrit 32.3 % (42.0-52.0); Hemoglobin 10.5 g/dL (14.0-18.0); Immature Granulocyte Absolute 0.02 K/mm3 (0.00-0.031); Immature Granulocyte Percent A 0.5 % (0-0.5); Lymphocytes Absolute Auto 0.68 K/mm3 (0.9-3.2); Lymphocytes Percent Auto 15.6 % (18.3-44.2); Mean Corpuscular HGB Conc 32.5 g/dl (32-36); Mean Corpuscular Hemoglobin 29.4 pg (26-34); Mean Corpuscular Volume 90.5 fl (80-100); Mean Platelet Volume 9.4 fl (7.4-10.4); Monocytes Absolute Auto 0.2 K/mm3 (0.1-0.6); Monocytes Percent Auto 3.7 % (2.6-8.5); Neutrophils Absolute Auto 3.5 K/mm3 (1.3-6.7); Platelet Count Result 196 k/mm3 (150-375); Red Blood Count 3.57 M/mm3 (4.6-6.20); Red Cell Distribution Width 15.8 % (11.5-14.5); White Blood Count 4.4 K/mm3 (4.5-10.0)
[2020-07-06 20:57] LABS: INR 1.1; Partial Thromboplastin Time 26.6 SECONDS (22.3-36.8); Prothrombin Time 13.4 Seconds (11.1-14.7)
[2020-07-06 21:03] LABS: Alanine Aminotransferase 12 U/L (4-50); Albumin Level 3.1 g/dL (3.5-5.1); Alkaline Phosphatase 37 U/L (38-126); Anion Gap 4 mmol/L (8-16); Aspartate Amino Transferase 19 U/L (17-59); Bilirubin,Total 0.5 mg/dL (0.2-1.3); Blood Urea Nitrogen 24 mg/dL (9-20); CRP 6.2 mg/dL (<1.0); Calcium 8.8 mg/dL (8.4-10.2); Carbon Dioxide 38 mmol/L (22-30); Chloride 97 mmol/L (98-107); Estimated CRCL calculation 57 ml/min; Estimated Glomerular Filt Rate > 60; Glucose 145 mg/dL (75-110); Potassium 4.9 mmol/L (3.4-5.0); Sodium 139 mmol/L (137-145)
[2020-07-06 21:11] LABS: NT Pro B Type Natriuretic Pept 649 PG/ML (5-100); Troponin I < 0.012 ng/mL (0.000-0.034)
[2020-07-06 21:16] LABS: Lipase < 10 U/L (23-300)
[2020-07-06 22:21] VITALS: BP 134/72; PULSE 76; RESP 20; O2SAT 99
--- NOTE | 2020-07-06 23:20 | PC.NURSE ---
Report received from JOHNATHAN Quick.Assumed care of patient at this time.
--- NOTE | 2020-07-06 23:27 | ED.GENADULT ---
HPI - General Adult General Chief complaint: Unspecified Stated complaint: COUGHING UP BLOOD Time Seen by Provider: 07/06/20 18:59 Source: patient Mode of arrival: EMS Limitations: no limitations History of Present Illness HPI narrative: 74-year-old with a history of dementia, diastolic dysfunction, pneumonia, hypertension was [facility] with complaints of coughing up blood since yesterday. Patient states that he is in rehab center and is presently being treated with cefdinir for pneumonia. However since yesterday has been coughing up blood. He denies any chest pain or shortness of breath. No history of fever or chills. Onset (ago): day(s) (1) Severity: moderate Pain Consistency: intermittent Relieving factors: none Exacerbating factors: none Associated symptoms: denies other symptoms Related Data Home Medications Medication Instructions Recorded Confirmed finasteride 5 mg tablet 5 mg PO DAILY 10/25/19 06/17/20 multivitamin-ferrous 1 tablet PO DAILY 10/25/19 06/17/20 fumarate-folic acid 18 mg-400 mcg tablet aspirin [Adult Low Dose Aspirin] 81 mg PO DAILY 05/01/20 06/17/20 atorvastatin 40 mg PO DAILY 05/01/20 06/17/20 carvedilol 6.25 mg PO BID 05/01/20 06/17/20 clopidogrel 75 mg PO DAILY 05/01/20 06/17/20 omeprazole 20 mg PO DAILY 05/01/20 06/17/20 albuterol sulfate 1 puff INHALATION BID 06/16/20 06/17/20 Allergies Allergy/AdvReac Type Severity Reaction Status Date / Time Contrast Media Allergy Mild Hives / Uncoded 03/29/20 06:50 Red Face Review of Systems Review of Systems: All systems reviewed & are unremarkable except as noted in HPI and below Constitutional: Constitutional: Reports no additional constitutional complaints Eyes: Eyes: Reports no additional eye complaints ENT: Reports system reviewed and no additional complaints, except as documented Cardiovascular: Cardiovascular: Reports no additional cardiovascular complaints Respiratory: Respiratory: Reports no additional respiratory complaints Gastrointestinal: Gastrointestinal: Reports no additional gastrointestinal complaints Musculoskeletal: Musculoskeletal: Reports no additional musculoskeletal complaints Neurologic: Reports system reviewed and no additional complaints, except as documented PMFSH Past Medical History Medical History Anemia Anxiety BPH (benign prostatic hyperplasia) With history of urinary incontinence 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 Chronic respiratory failure with hypoxia and hypercapnia On 5 L home O2 COPD (chronic obstructive pulmonary disease) Diastolic dysfunction HLD (hyperlipidemia) Hypertension ILD (interstitial lung disease) NICK (obstructive sleep apnea) Intolerant to CPAP therapy Pulmonary hypertension Surgical History Surgical History H/O rectal polypectomy History of colonoscopy History of removal of pigmented skin lesion Hx of tonsillectomy Family History Family History Mother Age older than 80 years Father , Around 50 years old Acute myocardial infarction Social History Social History Social History: The patient lives with his . He has been in quarantine since December. His is his durable power meter tester for healthcare. He has 1 son. He quit tobacco in 1968 after smoking a pack a day for 10 years. 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 He is a [place] . Denies any alcohol or drug use. The patient stated that he used to smoke marijuana prior to becoming a police records clerk. Primary care physician: Dr. Fabián Logan Code status: Full code. The patient would like his to be his surrogate decision maker. He would not want to be intubated soto
[2020-07-07] VITALS (13 sets, daily range): BP systolic 119–151; BP diastolic 51–87; PULSE 62–90; RESP 15–22; TEMP 36.3–36.6; O2SAT 93–100; BMI 16.0
--- NOTE | 2020-07-07 | ECHO_ITS ---
Patient Info Name: Marino Steiner Age: 74 years : 1945 Gender: Male Ht: 72 in Wt: 118 lbs BSA: 1.63 m2 HR: 73 bpm BP: 119 / 64 mmHg Heart Rhythm: Sinus Rhythm Technical Quality: Fair Exam Date: 07/07/2020 1:53 PM Exam Location: [facility] Pulmonary Patient Status: Inpatient Admit Date: 07/06/2020 Staff Ordering Physician: Daiana Pickard PA-C Ceo Na: Dwayne Diaz, TIMMY, RT Attending Provider: Daiana Pickard PA-C Referring Physician: Neeraj REDDY; Exam Type: CA echo doppler color flow Study Info Indications I50.9 - Heart failure, unspecified Complete two-dimensional, color flow and Doppler transthoracic echocardiogram is performed. Summary 1. Complete two-dimensional, color flow and Doppler transthoracic echocardiogram is performed. 2. Left ventricular chamber dimension is normal. 3. Left ventricular systolic function is normal, estimated at 55-60%. 4. There is mildly increased left ventricular wall thickness. 5. The left ventricular diastolic function is grade I diastolic dysfunction. 6. There is mild aortic valve calcification. 7. There is mild aortic valve sclerosis. 8. There is mild tricuspid valve regurgitation. Left Ventricle Left ventricular chamber dimension is normal. Left ventricular systolic function is normal, estimated at 55-60%. There is mildly increased left ventricular wall thickness. The left ventricular diastolic function is grade I diastolic dysfunction. Right Ventricle Right ventricular chamber dimension is normal. Right ventricular systolic function is normal. Left Atria Left atrial chamber dimension is normal. Right Atria Right atrial chamber dimension is normal. Atrial Septum Intact interatrial septum visualized by color flow imaging. Aortic Valve The aortic valve is trileaflet. There is mild aortic valve sclerosis. There is no aortic valve stenosis. There is trace aortic valve regurgitation. There is mild aortic valve calcification. Pulmonic Valve The pulmonic valve is normal. There is no pulmonic valve stenosis. There is trace pulmonic regurgitation. Mitral Valve The mitral valve has normal leaflets. There is no mitral valve stenosis. There is trace mitral valve regurgitation. Tricuspid Valve The tricuspid valve leaflets are normal. There is no significant tricuspid valve stenosis. There is mild tricuspid valve regurgitation. Pericardium/Pleural The pericardium appears normal. There is no pericardial effusion. Inferior Vena Cava Normal inferior vena cava with >50% collapse upon inspiration consistent with normal right atrial pressure, 5 mmHg. Aorta The aortic root size at the sinus of Valsalva is mildly dilated. The prox ascending aorta size is normal. Left Ventricular Outflow Tract Name Value Normal LVOT 2D LVOT Diameter 2.1 cm LVOT Doppler LVOT Peak Gradient 2 mmHg LVOT Mean Gradient 1 mmHg LVOT VTI 12 cm LVOT VTI/AV VTI Ratio 0.7 LVOT Stroke Volume 44 ml
--- NOTE | 2020-07-07 01:20 | ADMGEN ---
This patient, Marino Steiner, was admitted to [facility] Surg Room 326-01. Patient/family oriented to hospital policies and general routines including ID bracelet, bed and alarms, visiting hours, pain management, procedures, bathroom and other care routines, personal items, smoking policy, room service/diet, and visiting hours. Valuables list has been completed. Information on how to activate the Rapid Response Team has been discussed. Patient/Family are encouraged to report perceived risks to care and to ask questions if they do not understand what they are told or what they should do.
[2020-07-07] MEDS: ALBUTEROL SULFATE (*SP) INHALER 1 PUFF (02:46)
[2020-07-07] MEDS: SODIUM CHLORIDE 0.9% IV 1,000 ML 75 ML IV CONT ×2 (04:30→22:00)
[2020-07-07] MEDS: ALPRAZolam 0.5 MG TABLET PO ×2 (06:07→10:52)
[2020-07-07 06:22] LABS: Hematocrit 31.8 % (42.0-52.0); Hemoglobin 10.4 g/dL (14.0-18.0); Immature Granulocyte Absolute 0.03 K/mm3 (0.00-0.031); Immature Granulocyte Percent A 0.4 % (0-0.5); Lymphocytes Absolute Auto 1.22 K/mm3 (0.9-3.2); Lymphocytes Percent Auto 17.9 % (18.3-44.2); Mean Corpuscular HGB Conc 32.7 g/dl (32-36); Mean Corpuscular Hemoglobin 29.7 pg (26-34); Mean Corpuscular Volume 90.9 fl (80-100); Mean Platelet Volume 9.3 fl (7.4-10.4); Monocytes Absolute Auto 0.9 K/mm3 (0.1-0.6); Monocytes Percent Auto 12.6 % (2.6-8.5); Neutrophils Absolute Auto 4.7 K/mm3 (1.3-6.7); Neutrophils Percent Auto 69.1 % (45.5-73.1); Platelet Count Result 206 k/mm3 (150-375); Red Cell Distribution Width 15.5 % (11.5-14.5); White Blood Count 6.8 K/mm3 (4.5-10.0)
[2020-07-07 06:34] LABS: Anion Gap 4 mmol/L (8-16); Blood Urea Nitrogen 26 mg/dL (9-20); Calcium 8.9 mg/dL (8.4-10.2); Carbon Dioxide 37 mmol/L (22-30); Chloride 96 mmol/L (98-107); Estimated CRCL calculation 53 ml/min; Estimated Glomerular Filt Rate > 60; Glucose 91 mg/dL (75-110); Potassium 4.3 mmol/L (3.4-5.0); Sodium 137 mmol/L (137-145)
--- NOTE | 2020-07-07 08:01 | PM.IMHP ---
H&P: HPI History of Present Illness Date/Time: 07/07/20 08:01 Chief complaint: Pneumonia Narrative: Marino Steiner is a 74 year old male with history of recurrent pneumonia, very mild dementia, and hypertension who presented emergency room for hemoptysis. The patient is tired after his MBS and xanax but answers most of my questions. He states he has been battling PNA since january and has been getting worse. 3 days ago, he started coughing up blood. He feels very weak and tired. He says that he is coughing up blood a couple times a day and it is a bright red mucousy mix. this is not normal for him. He is feeling short of breath but not requiring any more oxygen. He has been coughing a lot lately but mostly in the morning. He states he was on a regular diet at the half-way although he was discharged here on pureed diet. He has been working with physical therapy but has been getting weaker and the half-way confirms this. He has no chest pain at this time. No history of blood clots. He has 1 episode of diarrhea daily according to him. He does not have any nausea or vomiting. 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 Chronic respiratory failure with hypoxia and hypercapnia On 5 L home O2 COPD (chronic obstructive pulmonary disease) Diastolic dysfunction HLD (hyperlipidemia) Hypertension ILD (interstitial lung disease) NICK (obstructive sleep apnea) Intolerant to CPAP therapy Pulmonary hypertension Surgical History Surgical History H/O rectal polypectomy History of colonoscopy History of removal of pigmented skin lesion Hx of tonsillectomy Family History Family History Mother Age older than 80 years Father , Around 50 years old Acute myocardial infarction Social History Social History (Updated 07/07/20 @ 10:25 by Daiana Pickard PA-C) Social History: The patient lives with his usually but has been at [facility] for [facility]. His is his durable power trial attorney for healthcare. He has 1 son. He quit tobacco in 1968 after smoking a pack a day for 10 years. 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 He is a [place] . Denies any alcohol or drug use. 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 Primary care physician: Dr. Fabián Logan Code status: Full code. The patient would like his to be his surrogate decision maker. He would not want to be intubated long-term. He does not want a tracheostomy. He does have a living will. Smoking packs per day: 1 Smoking cigarettes per day: 20.0 Years smoked: 10 Smoking pack-years: 10.00 Smoking status: Former smoker Tobacco type: cigarettes Second hand tobacco smoke exposure: No Smoking end date: 10/31/79 Alcohol intake: former Substance use: never Substance use type: does not use Living arrangements: half-way Occupation/Education: retired Gender identity (if verbalized by the patient): Male Sexual Orientation (if Verbalized by the Patient): Straight or Heterosexual Spiritual care concerns: No Agree to blood products: Yes Meds Home Medications and Allergies Home Medications Medication Instructions Recorded Confirmed Type finasteride 5 mg tablet 5 mg PO DAILY 10/25/19 07/07/20 History multivitamin-ferrous 1 tablet PO DAILY 10/25/19 07/07/20 History fumarate-folic acid 18 mg-400 mcg tablet aspirin [Adult Low Dose Aspirin] 81 mg PO DAILY
[2020-07-07 08:16] LABS: Partial Thromboplastin Time 28.1 SECONDS (22.3-36.8); Prothrombin Time 12.9 Seconds (11.1-14.7)
[2020-07-07] MEDS: ALBUTEROL SULFATE (*SP) AEROSOL 1 PUFF 6 PUFF INHALATION (08:41)
[2020-07-07 08:49] LABS: Lactate Dehydrogenase 410 U/L (313-618)
[2020-07-07] MEDS: FINASTERIDE 5 MG TABLET PO (09:24)
[2020-07-07] MEDS: PANTOPRAZOLE 40 MG TABLET PO (09:24)
[2020-07-07] MEDS: carvediloL 6.25 MG TABLET PO ×2 (09:24→21:57)
[2020-07-07] MEDS: SACCHAROMYCES BOULARDII 250 MG CAPSULE PO ×3 (09:24→18:28)
[2020-07-07] MEDS: ATORVASTATIN 40 MG TABLET PO (09:24)
[2020-07-07] MEDS: metroNIDAZOLE 250 MG TABLET 500 MG PO ×3 (09:24→18:28)
[2020-07-07 11:39] LABS: SARS-CoV-2 RNA PCR Negative
[2020-07-07 16:09] LABS: Add Urine Microscopic? YES; Appearance Urine Clear (Clear); Bilirubin Urine Negative (Negative); Blood Urine Negative (Negative); Color Urine Yellow (Yellow); Glucose Urine UA Negative (Negative); Ketones Urine Trace mg/dL (Negative); Leukocyte Esterase Ur Negative LEU/UL (Negative); Mucus Urine Rare /lpf; Nitrate Urine Negative (Negative); Protein Urine Negative (Negative); RBC Urine 0-2 /hpf (0-2); Specific Grav Ur 1.025 (1.001-1.035); Squamous Epithelial Cell Urine Rare /hpf (Few); Urobilinogen Urine Negative mg/dL (<2.0); WBC Urine 0-3 /hpf
--- NOTE | 2020-07-07 18:17 | PM.CNPUL ---
Assessment and Plan Assessment and plan (1) Recurrent aspiration pneumonia: Code(s): J69.0 - Pneumonitis due to inhalation of food and vomit Status: Acute Assessment and Plan: recurrent aspiration; he was admitted to [facility] Jun 03, does not want a feeding tube, and will continue to aspirate This is not going to get better, and with his worsening status change in code status needs to be addressed listened to me explain, and she seems to understand somewhat but is not ready to talk to Palliative Care or change code status. He had kendell aspiration of liquids on his MBS this admit discussed with PRISCA Vincent (2) Chronic respiratory failure with hypoxia and hypercapnia: Code(s): J96.11 - Chronic respiratory failure with hypoxia; J96.12 - Chronic respiratory failure with hypercapnia Status: Acute Assessment and Plan: on Home O2, now 4 L/min Has had CO2 retention in the past, no ABG this admission Not sure it would help (3) COPD (chronic obstructive pulmonary disease): Qualifiers: COPD type: unspecified COPD Qualified Code(s): J44.9 - Chronic obstructive pulmonary disease, unspecified Code(s): J44.9 - Chronic obstructive pulmonary disease, unspecified Status: Acute Assessment and Plan: smoked 1 ppd x 10-15 years, quit 40 years ago on COPD bronchodilators and controller meds (4) Concern about end of life: Code(s): Z71.1 - Person with feared health complaint in whom no diagnosis is made Status: Acute Assessment and Plan: I spoke with patient and his about his condition, with decreasing abilities, and his frequent hospital admissions. He is aspirating any time he eats. He does not want a feeding tube, fair enough. Food belongs in the stomach. We breathe air, not food. When food goes into the lungs, only bad things happen. This causes recurrent respiratory distress, decreased oxygen levels, chemical inflammation and other problems. I asked her about having Palliative Care speak with them, and she will think about it. History of Present Illness History of Present Illness Consult date: 07/08/20 Requesting physician: Daiana Pickard PA-C Reason for consult: pneumonia Chief complaint: Pneumonia Narrative: NEW: Marino Steiner is a 74 yo man followed in our clinic with recurrent aspiration, and does not want to get a feeding tube. His is at the bedside, and this is her first visit with him in 3 weeks. He was admitted Jul 06 from [facility] with increased shortness of breath and recurrent aspiration. He is having a progressive downhill course, not walking, no participating in therapy, is tired. She wants to be able to take him home, however she cannot take care of his needs, berta with her injured right arm, cannot lift at the shoulder at all. His CXR shows increased infiltrate compared to 06/16. He was at [facility] Jun 03- for work up, see below. I reviewed records. The says that he was told he had a defect in the right side of his chest, however that is not stated in the bronch report. His had a recent injury to her right arm, now in sling'; she fell out of bed when her foot missed the little stool, and is not able to care for him at home now. Record review: ~ 80 pages; April 2019- was admitted at [facility] with an acute R MCA stroke, with left facial droop, left hemiparesis and aphasia. says that the admission was for a seizure however I reviewed records from [facility] today which detailed the stroke and tPA. Record review: [facility] ; Jun 03, 2020 admitted with increased shortness of breath; Jun 03 had a chest CTA with consolidated RLL and small effusion; no PE found. Also had bilateral ground glass
[2020-07-07] MEDS: ALBUTEROL SULFATE (*SP) AEROSOL 1 PUFF INHALATION (19:37)
[2020-07-07] MEDS: ACETAMINOPHEN 325 MG TABLET 650 MG PO (22:56)
[2020-07-08] VITALS (13 sets, daily range): BP systolic 111–139; BP diastolic 52–96; PULSE 64–96; RESP 16–20; TEMP 36.2–36.6; O2SAT 93–98; BMI 16.0
[2020-07-08] MEDS: ACETAMINOPHEN 325 MG TABLET 650 MG PO ×3 (05:43→18:21)
[2020-07-08 06:14] LABS: Basophils Percent Auto 0.2 % (0.2-1.2); Eosinophils Absolute Auto 0.3 K/mm3 (0-0.3); Eosinophils Percent Auto 4.3 % (0-4.4); Hematocrit 30.4 % (42.0-52.0); Immature Granulocyte Absolute 0.03 K/mm3 (0.00-0.031); Immature Granulocyte Percent A 0.5 % (0-0.5); Lymphocytes Absolute Auto 1.53 K/mm3 (0.9-3.2); Lymphocytes Percent Auto 25.5 % (18.3-44.2); Mean Corpuscular HGB Conc 32.9 g/dl (32-36); Mean Corpuscular Hemoglobin 29.6 pg (26-34); Mean Corpuscular Volume 89.9 fl (80-100); Mean Platelet Volume 9.2 fl (7.4-10.4); Monocytes Absolute Auto 0.8 K/mm3 (0.1-0.6); Monocytes Percent Auto 12.7 % (2.6-8.5); Neutrophils Absolute Auto 3.4 K/mm3 (1.3-6.7); Neutrophils Percent Auto 56.8 % (45.5-73.1); Platelet Count Result 212 k/mm3 (150-375); Red Blood Count 3.38 M/mm3 (4.6-6.20); Red Cell Distribution Width 15.9 % (11.5-14.5)
[2020-07-08 06:27] LABS: Alanine Aminotransferase 11 U/L (4-50); Albumin Level 2.6 g/dL (3.5-5.1); Alkaline Phosphatase 35 U/L (38-126); Anion Gap 2 mmol/L (8-16); Aspartate Amino Transferase 22 U/L (17-59); Bilirubin,Total 0.5 mg/dL (0.2-1.3); Blood Urea Nitrogen 25 mg/dL (9-20); Calcium 8.3 mg/dL (8.4-10.2); Carbon Dioxide 36 mmol/L (22-30); Chloride 98 mmol/L (98-107); Estimated CRCL calculation 60 ml/min; Estimated Glomerular Filt Rate > 60; Glucose 75 mg/dL (75-110); Magnesium 1.5 mg/dL (1.6-2.3); Phosphorus 2.9 mg/dL (2.5-4.5); Potassium 3.5 mmol/L (3.4-5.0); Sodium 136 mmol/L (137-145)
[2020-07-08 06:34] LABS: Transferrin 125 mg/dL (206-381)
[2020-07-08 06:45] LABS: Iron 26 ug/dL (49-181)
[2020-07-08 06:54] LABS: Percent Iron Saturation 12 % (20-50)
[2020-07-08 07:34] LABS: Folic Acid 12.3 ng/mL (2.76->20)
[2020-07-08] MEDS: metroNIDAZOLE 250 MG TABLET 500 MG PO (09:14)
[2020-07-08] MEDS: FINASTERIDE 5 MG TABLET PO (09:14)
[2020-07-08] MEDS: carvediloL 6.25 MG TABLET PO ×2 (09:14→20:20)
[2020-07-08] MEDS: SACCHAROMYCES BOULARDII 250 MG CAPSULE PO ×3 (09:14→16:27)
[2020-07-08] MEDS: ATORVASTATIN 40 MG TABLET PO (09:14)
[2020-07-08] MEDS: PANTOPRAZOLE 40 MG TABLET PO (09:14)
[2020-07-08] MEDS: MAGNESIUM SULF 2 GM/WATER 50ML 2 GM/50 ML BAG IVPB (09:19)
[2020-07-08] MEDS: ALBUTEROL SULFATE (*SP) AEROSOL 1 PUFF INHALATION ×2 (09:48→19:33)
--- NOTE | 2020-07-08 12:07 | PM.IMPN ---
Progress Note: A&P Assessment and Plan (1) Pneumonia: Qualifiers: Laterality: bilateral Lung location: unspecified part of lung Pneumonia type: due to unspecified organism Qualified Code(s): J18.9 - Pneumonia, unspecified organism Code(s): J18.9 - Pneumonia, unspecified organism Status: Acute Assessment and Plan: Suspect recurrent aspiration PNA; was recently treated here 06/16 - 06/19 for treatment of same. COVID negative 07/06/20. Recently admitted at [facility] 06/03/20 - 06/11/20 and was seen by pulmonology; awaiting further records from [facility] at this time but discharge summary 06/11/20 notes he had bronchoscopy and sniff testing during that admission at [facility]. Appreciate pulmonology input. Appreciate Dr Cruz's input. Will continue with IV ceftriaxone per his recommendations. Add mucinex and pulmozyme. Continue supplemental O2 (wears O2 at home). (2) Dysphagia: Qualifiers: Dysphagia type: unspecified Qualified Code(s): R13.10 - Dysphagia, unspecified Code(s): R13.10 - Dysphagia, unspecified Status: Acute Assessment and Plan: Patient recently discharged to SNF with recommendations for a pureed diet, patient notes he was on a regular diet at detention; may be contributing to recurrent aspiration. MBS performed yesterday; speech therapy recommends minced/moist diet and moderately thickened liquids. Continue ST. (3) Hemoptysis: Code(s): R04.2 - Hemoptysis Status: Acute Assessment and Plan: Anna to be secondary to PNA on aspirin and plavix. ASA and plavix held at this time. Supplemental O2 is at his baseline requirement. (4) COPD (chronic obstructive pulmonary disease): Qualifiers: COPD type: unspecified COPD Qualified Code(s): J44.9 - Chronic obstructive pulmonary disease, unspecified Code(s): J44.9 - Chronic obstructive pulmonary disease, unspecified Status: Acute Assessment and Plan: Continue bronchodilator therapy with duo nebs; add pulmozyme and mucinex. Continue supplemental O2. (5) Anemia: Qualifiers: Anemia type: unspecified type Qualified Code(s): D64.9 - Anemia, unspecified Code(s): D64.9 - Anemia, unspecified Status: Chronic Assessment and Plan: H&H low but stable. No evidence of acute bleeding. Will monitor. (6) Anxiety: Code(s): F41.9 - Anxiety disorder, unspecified Status: Chronic Assessment and Plan: Stable, continue home meds Subjective Date/time seen: 07/08/20 12:00 Interval history: Mr Steiner is a 74yo M admitted for recurrent aspiration pneumonia. He is feeling tired this afternoon after a [place]. He is experiencing pleuritic pain to his right lower thorax today. He feels short of breath. Reports not eating or drinking much. No nausea or vomiting. Review of Systems Review of Systems: Narrative: Twelve systems were reviewed with pertinent positives and negatives as per HPI. Exam Narrative: Exam Narrative: General: Frail male resting supine in bed in no acute distress. HEENT: Normocephalic, EOMI, oral mucosa tacky. Cardiovascular: Rate and rhythm are regular. Respiratory: Diminished breath sounds right base ++. Respirations even and nonlabored. Tolerating his home O2 requirement of 4L/min. Abdomen: Soft, non-tender, non-distended, bowel sounds present. Extremities: Peripheral pulses intact. No edema or pain to palpation. Neuro: Sleepy but oriented to self, date, and [facility]. No focal neurological deficits. Speech is slow but clear. Objective Data Vital Signs Vital Signs: Last Vital Signs Temp 97.3 F L 07/08/20 14:00 Pulse 75 07/08/20 14:
--- NOTE | 2020-07-08 12:22 | WPDINFPN2 ---
Progress Note: A&P Assessment and Plan (1) Recurrent aspiration pneumonia: Code(s): J69.0 - Pneumonitis due to inhalation of food and vomit Status: Acute Assessment and Plan: 1. Aspiration pneumonia 2. Prior stroke and seizure disorder 3. Recent bronchoscopy @ [facility] 4. Debility REC Ctx #2 monotherapy, collect old records Subjective Date/time seen: 07/08/20 12:22 Objective Data Vital Signs Vital Signs: Vital Signs - 24 hr 07/07/20 16:00 07/07/20 19:40 07/07/20 20:00 Temperature 36.5 C 36.3 C L Pulse Rate 62 71 66 Respiratory Rate 18 18 22 H Blood Pressure 130/51 L 134/74 Pulse Oximetry 100 96 100 07/07/20 21:57 07/08/20 00:00 07/08/20 03:53 Temperature 36.2 C L 36.6 C Pulse Rate 66 69 64 Respiratory Rate 20 18 Blood Pressure 111/52 L 139/69 Pulse Oximetry 93 97 07/08/20 09:14 07/08/20 09:52 Temperature Pulse Rate 96 Respiratory Rate Blood Pressure Pulse Oximetry 94 Intake/Output Intake/Output: Intake & Output 07/05/20 07/06/20 07/07/20 07/08/20 23:59 23:59 23:59 23:59 Intake Total 1790 120 Output Total 175 200 Balance 1615 -80 Meds/Results Medications: Active Medications Generic Name Dose Route Start Last Admin Trade Name Freq PRN Reason Stop Dose Admin Acetaminophen 650 mg 07/08/20 08:40 Tylenol Tablet PO Q4H PRN Pain Rated 5 or Less Hydrocodone Bitart/Acetaminophen 1 tab 07/08/20 08:40 07/08/20 09:12 [place] 5-325 Mg PO 1 tab Q6H PRN Administration Pain Rated 6 or Greater Albuterol 5 mg 07/07/20 07:01 Albuterol Sulf Neb 2.5mg/0.5ml INHALATION Q6HRT PRN Shortness Of Breath Or Wheezing Albuterol 1 puff 07/07/20 09:00 07/08/20 09:48 Proventil Hfa INHALATION 1 puff BID CAITLIN Administration Alprazolam 0.5 mg 07/07/20 05:35 07/07/20 10:52 Xanax PO 0.5 mg BID PRN Administration Anxiety Atorvastatin Calcium 40 mg 07/07/20 09:00 07/08/20 09:14 Lipitor PO 40 mg DAILY CAITLIN Administration Budesonide/Formoterol Fumarate 2 puff 07/07/20 09:00 07/08/20 09:47 Symbicort 160-4.5 Mcg (*Sp) Inhaler INHALATION 2 puff Q12HRT CAITLIN Administration Carvedilol 6.25 mg 07/07/20 09:00 07/08/20 09:14 Coreg PO 6.25 mg Q12HR CAITLIN Administration Dornase Renaldo 2.5 mg 07/08/20 12:00 Pulmozyme INHALATION Q12HRT CAITLIN Finasteride 5 mg 07/07/20 09:00 07/08/20 09:14 Proscar PO 5 mg DAILY CAITLIN Administration Guaifenesin 600 mg 07/08/20 12:00 Mucinex 12 Hr Tab PO Q12HR CAITLIN Sodium Chloride 1,000 mls @ 75 mls/hr 07/06/20 23:45 07/07/20 22:00 Normal Saline Iv IV CONT 75 mls/hr .[id number] CAITLIN Administration Ceftriaxone Sodium/Dextrose 1 gm in 50 mls @ 100 mls/hr 07/07/20 21:00 07/07/20 22:30 Rocephin 1 Gm/D5w 50 Ml IVPB Infused Q24H CAITLIN Infusion Azithromycin 500 mg in 250 mls @ 250 mls/hr 07/07/20 22:00 07/07/20 23:00 Zithromax IVPB Infused Q24H CAITLIN Infusion Ipratropium [place] 0.5 mg 07/07/20 07:01 Atrovent Neb INHALATION Q6HRT PRN Shortness Of Breath Or Wheezing Metronidazole 500 mg 07/07/20 09:00 07/08/20 09:14 Flagyl PO 08/06/20 09:01 500 mg TID CAITLIN Administration Ondansetron HCl 4 mg 07/06/20 23:42 Zofran Inj IV PUSH Q4H PRN Nausea Pantoprazole Sodium 40 mg 07/07/20 09:00 07/08/20 09:14 Protonix PO 08/06/20 09:01 40 mg DAILY CAITLIN Administration Saccharomyces Boulardii 250 mg 07/07/20 09:00 07/08/20 09:14 Florastor PO 250 mg TID CAITLIN Administration Radiology Results: ITS Impressions Chest X-Ray 07/06/20 20:10 IMPRESSION: Right sided pulmonary infiltrate, increased since 06/16/[address] 07/07/20 12:29 IMPRESSION: 1. Debris/mucous plugging in the right lower lobe bronchus resulting in right lower lobe collapse. 2. Chronic interstitial lung disease with differential as previously described. 3. Superimposed airspace opaci
[2020-07-08] MEDS: guaiFENesin 12 HR 600 MG TABCR PO ×2 (14:24→23:17)
--- NOTE | 2020-07-08 14:59 | PCRCNOTE ---
Window of time for administration has passed. See next scheduled administration.
[2020-07-08] MEDS: SODIUM CHLORIDE 0.9% IV 1,000 ML 75 ML IV CONT (15:41)
--- NOTE | 2020-07-08 16:39 | CONS_ITS ---
DATE OF CONSULTATION: 07/08/2020 REASON FOR CONSULTATION: Aspiration pneumonia. HISTORY OF PRESENT ILLNESS: The patient is a 74-year-old male who can provide limited history. This is his 3rd [facility] admission in the last 2-1/2 months, all for suspected aspiration pneumonia. He also was admitted to [facility] from the June 03 until June 11. He had bronchoscopy performed at that time due to failure to improve from his pneumonia. Results of the bronchoscopy apparently showed some type of a defect, pertinent details not yet available. He was discharged on cefdinir and metronidazole and sent to [place]. He returned to this hospital on July 06 with hemoptysis, generalized weakness, 3 days of cough, fatigue, and shortness of breath. Here, he has been given metronidazole, ceftriaxone, and azithromycin, and consultation requested. The patient has a history of a stroke as well as seizures and has had abnormal modified barium swallows in the past with recommendation for pureed foods, but he is not adherent with this recommendation. Home medication list included no active antibiotics. No events here in the hospital. Dr. Cox has seen but her assessment is not yet available. The patient has no current complaints. ALLERGIES: X-RAY DYE. PRESENT MEDICATIONS: No immunosuppressants. HABITS: Ex-smoker in 1979 and no alcohol. PAST MEDICAL HISTORY: In addition to the above, colonoscopy, rectal polyp, pulmonary hypertension, NICK, interstitial lung disease, hypertension, hyperlipidemia, diastolic dysfunction, COPD, home O2 at 5 L, BPH, and anxiety. REVIEW OF SYSTEMS: Limited by the patient's memory. 14-point review attempted. SOCIAL HISTORY: He has a caregiver at the bedside, who did not introduce herself further. He is listed as being with 1 son. 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 FAMILY HISTORY: Not pertinent to his present illness. PHYSICAL EXAMINATION: GENERAL: This is an elderly male who appears older than his actual age, 15 pounds weight loss and appears cachectic, mild respiratory distress. VITAL SIGNS: Afebrile since arrival, 64, 18, 139/69, 97% on 4 L. SKIN: Warm and dry. Decreased turgor. No rashes. NODES: He has no cervical adenopathy. EENT: The oropharynx, oral mucosa normal. The conjunctivae are clear. Pupils equal, round, reactive. No paranasal sinus erythema, edema or tenderness. NECK: Without mass, tracheal deviation, tenderness, meningismus. LUNGS: Rales at both lung bases. Breath sounds are vesicular. Clear to auscultation and percussion otherwise. CARDIAC: Soft S1, S2. Regular rate and rhythm. No murmur or gallop. Pulses are 1+. ABDOMEN: Nontender, soft, nondistended. No organomegaly. Normal bowel sounds. EXTREMITIES: Muscle wasting. No clubbing, cyanosis, or edema. Intrinsic muscles and facial muscles also atrophied. NEUROLOGIC: Dysarthric mildly. Follows questions. LABORATORY DATA: His white count initially 4.4, now 6; hemoglobin 10, which is stable, and platelets are 212. He has hyponatremia. CO2 is 36, similar to previous. BUN is 25, creatinine 0.7, albumin 2.6. Alkaline phosphatase low. Transaminases normal. Urinalysis normal. His COVID assay was nonreactive. Multiple blood cultures since April 30 have all been no growth including from 07/06. RADIOLOGY: I personally reviewed his chest x-ray. He has a chronically elevated right hemidiaphragm with atelectasis or infiltrate at the right lung base. I reviewed the radiologist's interpretation of the same. Also reviewed the radiologist's reading of his chest CT. ASSESSMENT: 1. Aspiration syndrome. 2. Aspiration pneumonia. 3. Elevated right hemidiaphragm. 4. Previous stroke and seizure disorder. 5. Benign prostatic
[2020-07-08] MEDS: DORNASE ALFA INH SOLN 1 MG/ML 2.5 ML AMP 2.5 MG INHALATION (19:34)
[2020-07-08] MEDS: IBUPROFEN 600 MG TABLET PO (20:32)
[2020-07-08] MEDS: ALBUTEROL SULFATE NEB 2.5 MG/0.5 ML INH 5 MG INHALATION (22:17)
[2020-07-08] MEDS: IPRATROPIUM BR 0.02% INH SOLN 0.5 MG/2.5 ML VIAL INHALATION (22:29)
[2020-07-09] VITALS (13 sets, daily range): BP systolic 147–165; BP diastolic 82–94; PULSE 64–101; RESP 18–22; TEMP 36.1–36.4; O2SAT 91–97
[2020-07-09] MEDS: ACETAMINOPHEN 325 MG TABLET 650 MG PO (01:25)
[2020-07-09] MEDS: ALBUTEROL SULFATE NEB 2.5 MG/0.5 ML INH 5 MG INHALATION ×4 (02:19→21:19)
[2020-07-09] MEDS: IPRATROPIUM BR 0.02% INH SOLN 0.5 MG/2.5 ML VIAL INHALATION ×4 (02:19→21:19)
[2020-07-09] MEDS: SODIUM CHLORIDE 0.9% IV 1,000 ML 75 ML IV CONT ×2 (05:31→17:53)
[2020-07-09] MEDS: IBUPROFEN 600 MG TABLET PO ×2 (05:51→12:23)
[2020-07-09 06:01] LABS: Hematocrit 31.4 % (42.0-52.0); Hemoglobin 10.2 g/dL (14.0-18.0); Mean Corpuscular HGB Conc 32.5 g/dl (32-36); Mean Corpuscular Volume 89.2 fl (80-100); Mean Platelet Volume 9.1 fl (7.4-10.4); Platelet Count Result 221 k/mm3 (150-375); Red Blood Count 3.52 M/mm3 (4.6-6.20); Red Cell Distribution Width 15.7 % (11.5-14.5); White Blood Count 8.7 K/mm3 (4.5-10.0)
[2020-07-09 06:16] LABS: Anion Gap 4 mmol/L (8-16); Blood Urea Nitrogen 18 mg/dL (9-20); Carbon Dioxide 33 mmol/L (22-30); Chloride 99 mmol/L (98-107); Estimated CRCL calculation 69 ml/min; Estimated Glomerular Filt Rate > 60; Glucose 66 mg/dL (75-110); Magnesium 1.7 mg/dL (1.6-2.3); Potassium 3.7 mmol/L (3.4-5.0); Sodium 136 mmol/L (137-145)
[2020-07-09 07:12] LABS: Band Neutrophils Percent 13 % (0-6); Eosinophils Absolute Manual 0.08 K/mm3 (0.02-0.5); Eosinophils Percent Manual 1 % (0-4); Lymphocytes Absolute Manual 1.47 K/mm3 (1.1-4.5); Monocytes Absolute Manual 0.78 K/mm3 (0.1-0.90); Monocytes Percent Manual 9 % (3-9); Neutrophils Absolute Manual 6.35 K/mm3 (1.3-6.7); Neutrophils Percent Manual 60 % (46-73); Nucleated Red Blood Cells 2 %; Platelet Estimate Adequate (Adequate); Total Cells Counted 100
[2020-07-09 07:13] LABS: Hypochromasia 1+ (NORMAL); Poikilocytosis 1+ (NORMAL)
[2020-07-09 07:14] LABS: Acanthocytes 1+ (NORMAL)
[2020-07-09 07:16] LABS: Anisocytosis 1+ (NORMAL)
[2020-07-09 07:17] LABS: Ovalocytes 1+ (NORMAL)
[2020-07-09] MEDS: DEXTROSE 50% 25 GM/50 ML SYRINGE IV PUSH (08:21)
[2020-07-09] MEDS: DORNASE ALFA INH SOLN 1 MG/ML 2.5 ML AMP 2.5 MG INHALATION ×2 (08:51→21:19)
[2020-07-09] MEDS: guaiFENesin 12 HR 600 MG TABCR PO ×2 (09:13→20:25)
[2020-07-09] MEDS: SACCHAROMYCES BOULARDII 250 MG CAPSULE PO ×2 (09:13→12:25)
[2020-07-09] MEDS: FINASTERIDE 5 MG TABLET PO (09:13)
[2020-07-09] MEDS: ATORVASTATIN 40 MG TABLET PO (09:13)
[2020-07-09] MEDS: PANTOPRAZOLE 40 MG TABLET PO (09:13)
[2020-07-09] MEDS: carvediloL 6.25 MG TABLET PO ×2 (09:14→20:31)
--- NOTE | 2020-07-09 10:03 | PCOTNOTE ---
Attempted to see patient this am, however patient declined keeping eyes closed, shaking head stating, Too tired.
[2020-07-09 10:10] LABS: Glucose Point of Care 123 (65-105)
[2020-07-09 10:10] LABS: Glucose Point of Care 61 (65-105)
--- NOTE | 2020-07-09 11:31 | PCPTNOTE ---
Patient declines PT at this time. Patient states that he is not feeling well.
[2020-07-09 12:33] LABS: Glucose Point of Care 95 (65-105)
--- NOTE | 2020-07-09 12:34 | PC.NURSE ---
Continue to provide pt and his education about acceptable food choices for pt who is on minced/moist, heart healthy and honey thick liquids. continues to bring in non-thickened drinks, [employer] PB cups, big macs (07/08). Today(07/09) pt stated is bringing in lo mein. I explained that was an unacceptable choice. ST and I educated pt on appropriate choices, pt provided with additional menu, and gave specialized information on minced and moist diet style and benefits for his condition.
--- NOTE | 2020-07-09 13:10 | WPDINFPN2 ---
Progress Note: A&P Assessment and Plan (1) Recurrent aspiration pneumonia: Code(s): J69.0 - Pneumonitis due to inhalation of food and vomit Status: Acute Assessment and Plan: 1. Aspiration pneumonia, acute, WBC back to normal. I reviewed all records sent from [facility], and discussed with Dr. Cox 2. Prior stroke and seizure disorder 3. Aspiration syndrome 4. Chronic paralysis, R hemidiaphragm REC Ctx #3, stop as further benefit not anticipated. He has declined PEG. Palliative care recommended, as the combination of diaphragm paralysis and aspiration are not correctable to my knowledge, and will lead to recurrent pneumonia. Of course patient is free to seek another opinion. Will see prn Subjective Date/time seen: 07/09/20 13:10 Interval history: offers no complaints Exam Narrative: Exam Narrative: afebrile Const: General: no acute distress Other: cachectic Resp: Effort & Inspection: normal respiratory effort Auscultation: no crackles, no rales, no wheezes and diminished lung sounds Cardio: Rate: regular rate Rhythm: regular rhythm Heart sounds: no murmurs GI: Inspection: non-distended GI Palp: Yes Soft to palpation and No Tenderness to palpation present (GI) Objective Data Vital Signs Vital Signs: Vital Signs - 24 hr 07/08/20 14:00 07/08/20 19:37 07/08/20 19:40 Temperature 36.3 C L Pulse Rate 75 82 84 Respiratory Rate 16 18 18 Blood Pressure 115/73 Pulse Oximetry 93 95 07/08/20 19:42 07/08/20 20:15 07/08/20 20:20 Temperature Pulse Rate 85 92 92 Respiratory Rate 20 Blood Pressure 137/96 H Pulse Oximetry 93 07/08/20 22:00 07/08/20 22:17 07/08/20 22:30 Temperature 36.2 C L Pulse Rate 77 83 84 Respiratory Rate 16 20 20 Blood Pressure 137/71 Pulse Oximetry 98 07/09/20 02:22 07/09/20 02:25 07/09/20 06:00 Temperature 36.2 C L Pulse Rate 85 88 97 Respiratory Rate 20 20 18 Blood Pressure 155/84 H Pulse Oximetry 91 07/09/20 08:50 07/09/20 09:01 07/09/20 09:14 Temperature Pulse Rate 96 100 92 Respiratory Rate 20 22 H Blood Pressure Pulse Oximetry 91 Intake/Output Intake/Output: Intake & Output 07/06/20 07/07/20 07/08/20 07/09/20 23:59 23:59 23:59 23:59 Intake Total 1790 1460 1100 Output Total 175 450 300 Balance 1615 1010 800 Meds/Results Medications: Active Medications Generic Name Dose Route Start Last Admin Trade Name Freq PRN Reason Stop Dose Admin Acetaminophen 650 mg 07/08/20 14:59 07/09/20 01:25 Tylenol Tablet PO 650 mg Q4H PRN Administration Pain 1 - 3 Hydrocodone Bitart/Acetaminophen 1 tab 07/08/20 20:44 07/09/20 09:12 [place] 5-325 Mg PO 1 tab Q6H PRN Administration Pain Rated 4-6 Albuterol 1 puff 07/07/20 09:00 07/08/20 19:33 Proventil Hfa INHALATION 1 puff BID CAITLIN Administration Albuterol 5 mg 07/09/20 02:00 07/09/20 08:45 Albuterol Sulf Neb 2.5mg/0.5ml INHALATION 5 mg Q6HRT CAITLIN Administration Alprazolam 0.25 mg 07/08/20 20:16 Xanax PO QID PRN Anxiety Atorvastatin Calcium 40 mg 07/07/20 09:00 07/09/20 09:13 Lipitor PO 40 mg DAILY CAITLIN Administration Budesonide/Formoterol Fumarate 2 puff 07/07/20 09:00 07/08/20 19:33 Symbicort 160-4.5 Mcg (*Sp) Inhaler INHALATION 2 puff Q12HRT CAITLIN Administration Carvedilol 6.25 mg 07/07/20 09:00 07/09/20 09:14 Coreg PO 6.25 mg Q12HR CAITLIN Administration Dextrose 12.5 gm 07/09/20 07:47 07/09/20 08:21 Dextrose 50% Syringe IV PUSH 12.5 gm PRN PRN Administration Hypoglycemia Protocol Dornase Renaldo 2.5 mg 07/08/20 12:00 07/09/20 08:51 Pulmozyme INHALATION 2.5 mg Q12HRT CAITLIN Administration Finasteride 5 mg 07/07/20 09:00 07/09/20 09:13 Proscar PO 5 mg DAILY CAITLIN Administration Glucagon 1 mg 07/09/20 07:47 Glucagon For Inj IM PRN PRN Hypoglycemia Protocol Glucose 15 gm 07/09/20 07:47 Glutose 15
--- NOTE | 2020-07-09 13:21 | PCOTNOTE ---
Attempted to see patient this pm, however patient declined. Asked patient if there was anything to get for him and patient replied, Yeah, a gun! Pt lightly laughed after and said, No. I'm either gonna get better, or I'm gonna . RN notified of patient's comments. RN to room to follow-up.
--- NOTE | 2020-07-09 13:48 | PC.NURSE ---
Pt told OT that he did not want to do his therapy today. Pt then stated he wanted a gun. OT came and told me. I then went in and used the suicide risk assessment intervention. He scored a 6. He stated that he didn't mean it because he's a [employer], besides he has all the means to do this at home with all of the guns he has. He told me that if I gave him another pain pill he wouldn't threaten this. I discussed making flippant comments of suicidal intentions. He said he wants to live and that he would stop saying this stuff if I would turn his oxygen to 6L. Pt is currently satting 92 on 4 L of 02. Informed Lara and charge nurse. Implemented Q12 suicide risk assessments.
--- NOTE | 2020-07-09 17:10 | PM.IMPN ---
Progress Note: A&P Assessment and Plan (1) Pneumonia: Qualifiers: Laterality: bilateral Lung location: unspecified part of lung Pneumonia type: due to unspecified organism Qualified Code(s): J18.9 - Pneumonia, unspecified organism Code(s): J18.9 - Pneumonia, unspecified organism Status: Acute Assessment and Plan: Suspect recurrent aspiration PNA; was recently treated here 06/16 - 06/19 for treatment of same. COVID negative 07/06/20. Recently admitted at [facility] 06/03/20 - 06/11/20 and was seen by pulmonology; he had bronchoscopy and sniff testing during that admission at [facility], biopsy negative for malignancy. He has right hemidiaphragm paralysis. Appreciate Dr Cox and Dr Cruz's input. Both have recommended palliative care. Discussed at length with patient and family and they wish to pursue hospice care. Care coordination aware and trying to arrange placement. (2) Dysphagia: Qualifiers: Dysphagia type: unspecified Qualified Code(s): R13.10 - Dysphagia, unspecified Code(s): R13.10 - Dysphagia, unspecified Status: Acute Assessment and Plan: Patient recently discharged to SNF with recommendations for a pureed diet, patient notes he was [facility] a [facility]; may be contributing to recurrent aspiration. MBS performed; speech therapy recommends minced/moist diet and moderately thickened liquids. (3) Hemoptysis: Code(s): R04.2 - Hemoptysis Status: Acute Assessment and Plan: [place] to be secondary to PNA on aspirin and plavix. ASA and plavix held at this time. Supplemental O2 is at his baseline requirement. (4) COPD (chronic obstructive pulmonary disease): Qualifiers: COPD type: unspecified COPD Qualified Code(s): J44.9 - Chronic obstructive pulmonary disease, unspecified Code(s): J44.9 - Chronic obstructive pulmonary disease, unspecified Status: Acute Assessment and Plan: Continue bronchodilator therapy with duo nebs; add pulmozyme and mucinex. Continue supplemental O2. (5) Anemia: Qualifiers: Anemia type: unspecified type Qualified Code(s): D64.9 - Anemia, unspecified Code(s): D64.9 - Anemia, unspecified Status: Chronic Assessment and Plan: H&H low but stable. No evidence of acute bleeding. Will monitor. (6) Anxiety: Code(s): F41.9 - Anxiety disorder, unspecified Status: Chronic Assessment and Plan: Stable, continue home meds. Subjective Date/time seen: 07/09/20 1500 Interval history: Mr Steiner is a 74yo M admitted for recurrent aspiration pneumonia. He is tired. Continues to have pleuritic pain to right lower thorax. No appetite, however no abdominal pain, nausea or vomiting. No chest pain. Notified by RN that patient stated to a staff member that he wanted a gun insinuating a suicidal thought. He then mentioned to nursing that he would not do that, and that he would stop making that comment if he were able to have a pain pill. To me, he declines any suicidal or homicidal ideations. I do not have true concern for suicidal plan for this patient at this time. We did, however, discuss his goals of care at length with his at the bedside. Patient and have agreed to pursue hospice care. Review of Systems Review of Systems: Narrative: Twelve systems were reviewed with pertinent positives and negatives as per HPI. Exam Narrative: Exam Narrative: General: Frail male resting supine in bed in no acute distress. HEENT: Normocephalic, EOMI, oral mucosa tacky. Cardiovascular: Rate and rhythm are regular. Respiratory: Diminished breath sounds right base ++. Respirations even and nonlabored.
[2020-07-09 18:46] LABS: Glucose Point of Care 196 (65-105)
[2020-07-09] MEDS: ALPRAZolam 0.25 MG TABLET PO ×2 (18:57→22:44)
[2020-07-10] VITALS (17 sets, daily range): BP systolic 104–154; BP diastolic 57–86; PULSE 64–94; RESP 16–20; TEMP 36.3–36.7; O2SAT 89–100
[2020-07-10] MEDS: IBUPROFEN 600 MG TABLET PO (00:20)
[2020-07-10 00:25] LABS: Glucose Point of Care 135 (65-105)
[2020-07-10] MEDS: IPRATROPIUM BR 0.02% INH SOLN 0.5 MG/2.5 ML VIAL INHALATION ×4 (02:57→20:02)
[2020-07-10] MEDS: ALBUTEROL SULFATE NEB 2.5 MG/0.5 ML INH 5 MG INHALATION ×4 (02:57→20:02)
[2020-07-10 05:30] LABS: Glucose Point of Care 109 (65-105)
[2020-07-10] MEDS: ACETAMINOPHEN 325 MG TABLET 650 MG PO (05:44)
[2020-07-10] MEDS: guaiFENesin 12 HR 600 MG TABCR PO ×2 (09:58→21:04)
[2020-07-10] MEDS: ATORVASTATIN 40 MG TABLET PO (09:58)
[2020-07-10] MEDS: SACCHAROMYCES BOULARDII 250 MG CAPSULE PO ×3 (09:58→16:59)
[2020-07-10] MEDS: FINASTERIDE 5 MG TABLET PO (09:58)
[2020-07-10] MEDS: carvediloL 6.25 MG TABLET PO ×2 (09:58→21:03)
--- NOTE | 2020-07-10 09:58 | PM.IMPN ---
Progress Note: A&P Assessment and Plan (1) Pneumonia: Qualifiers: Laterality: bilateral Lung location: unspecified part of lung Pneumonia type: due to unspecified organism Qualified Code(s): J18.9 - Pneumonia, unspecified organism Code(s): J18.9 - Pneumonia, unspecified organism Status: Acute Assessment and Plan: Suspect recurrent aspiration PNA; was recently treated here 06/16 - 06/19 for treatment of same. COVID negative 07/06/20. Recently admitted at [facility] 06/03/20 - 06/11/20 and was seen by pulmonology; he had bronchoscopy and sniff testing during that admission at [facility], biopsy negative for malignancy. He has right hemidiaphragm paralysis. Appreciate Dr Cox and Dr Cruz's input. Both have recommended palliative care. Discussed at length with patient and family and they wish to pursue hospice care. Care coordination aware and trying to arrange placement, is not able to take care of him at home due to an arm injury. (2) Dysphagia: Qualifiers: Dysphagia type: unspecified Qualified Code(s): R13.10 - Dysphagia, unspecified Code(s): R13.10 - Dysphagia, unspecified Status: Acute Assessment and Plan: [facility] repeated this admission; speech therapy recommends minced/moist diet and moderately thickened liquids. (3) Hemoptysis: Code(s): R04.2 - Hemoptysis Status: Acute Assessment and Plan: [place] to be secondary to PNA on aspirin and plavix. ASA and plavix held at this time. Supplemental O2 is at his baseline requirement. (4) COPD (chronic obstructive pulmonary disease): Qualifiers: COPD type: unspecified COPD Qualified Code(s): J44.9 - Chronic obstructive pulmonary disease, unspecified Code(s): J44.9 - Chronic obstructive pulmonary disease, unspecified Status: Acute Assessment and Plan: Continue bronchodilator therapy with duo nebs; pulmozyme and mucinex. Continue supplemental O2. (5) Anemia: Qualifiers: Anemia type: unspecified type Qualified Code(s): D64.9 - Anemia, unspecified Code(s): D64.9 - Anemia, unspecified Status: Chronic Assessment and Plan: H&H low but stable. No evidence of acute bleeding. Will monitor. (6) Anxiety: Code(s): F41.9 - Anxiety disorder, unspecified Status: Chronic Assessment and Plan: Stable, continue home meds. Subjective Date/time seen: 07/10/20 09:00 Interval history: Mr Steiner is a 74yo M admitted for recurrent aspiration pneumonia. He is tired and short of breath. Continues to have pleuritic pain to right lower thorax. No appetite, however no abdominal pain, nausea or vomiting. Plan is for discharge with hospice pending arrangements and this is again discussed with patient this morning. Review of Systems Review of Systems: Narrative: Twelve systems were reviewed with pertinent positives and negatives as per HPI. Exam Narrative: Exam Narrative: General: Cachectic male resting supine in bed in no acute distress. HEENT: Normocephalic, EOMI, oral mucosa tacky. Cardiovascular: Rate and rhythm are regular. Respiratory: Diminished breath sounds right base ++. Respirations even and nonlabored. Tolerating his home O2 requirement of 4L/min. Abdomen: Soft, non-tender, non-distended, bowel sounds present. Extremities: Peripheral pulses intact. No edema or pain to palpation. Neuro: Alert and oriented. No focal neurological deficits. Speech is slow but clear. Objective Data Vital Signs Vital Signs: Last Vital Signs Temp 97.3 F L 07/10/20 05:59 Pulse 82 07/10/20 10:30 Resp 20 07/10/20 10:30 BP 131/69 07/10/20 05:59 Pulse Ox 98 07/10/20 10:16
[2020-07-10] MEDS: PANTOPRAZOLE 40 MG TABLET PO (10:00)
[2020-07-10] MEDS: SODIUM CHLORIDE 0.9% IV 1,000 ML 75 ML IV CONT ×2 (10:02→21:07)
[2020-07-10] MEDS: DORNASE ALFA INH SOLN 1 MG/ML 2.5 ML AMP 2.5 MG INHALATION ×2 (10:33→20:03)
[2020-07-10 12:10] LABS: Glucose Point of Care 100 (65-105)
[2020-07-10 13:41] LABS: SARS-CoV-2 RNA PCR Negative
--- NOTE | 2020-07-10 14:01 | PCPTNOTE ---
The PT treatment was unable to be completed today due to family refusal. Will continue per Plan of Care frequency and duration.
--- NOTE | 2020-07-10 16:04 | PCDIET ---
Nutrition Follow-Up Complete: Underweight R/T reduced intake as evidence by BMI 16 PO intake of 50% or greater of meals and supplements to maintain wt Goal: Pt current nutrition is minced and moist with level 3 thickened beverages, heart healthy, thrive. Nutrition recommendation: agree + enlive BID Last recorded weight is 53.6 kg. Bowel Motility:no bm Labs Reviewed:wnl Meds Noted:florastor, protonix, zofran, albuterol, lipitor Additional Notes: Provided edu on ONS today and explored other thickened items he could enjoy like smoothies, cream soups. Pt would like Ensure Enlive which we will send BID along with thrive. Recommend new wt. No BM noted. Agree with florastor. Pt appetite poor due to pain. Average intake is over the last three meals is .03% (5, 0, 5%) We will continue to monitor for adequate intake and wt every five days.
[2020-07-10] MEDS: ALPRAZolam 0.25 MG TABLET PO (17:03)
--- NOTE | 2020-07-10 17:33 | PC.NURSE ---
Patient found to have a taco montejo slushie in his room on his bedside table within patient reach with no thickener added. Patient states his brought it in. Drink is almost gone. Remainder of drink thrown away. Patient educated on need for thickened liquids due to his aspiration precautions.
--- NOTE | 2020-07-10 18:27 | PC.NURSE ---
This RN spoke with the patient's on the phone. Patient's is tearful and states I just don't know what to do. Why are you keeping him alive like this? He isn't eating. He doesn't want a feeding tube or to be kept alive like this . This RN using empathetic communication to educate her on the care the patient is receiving. Patient's also expresses concerns about placement and the financial burden of SNF placement. The patient's verbalizes that she has spoke with care coordination and will be in to see the patient in the morning and to speak with care coordination again regarding the patient's discharge plans. Patient's still very tearful. This RN suggests to her to call someone close to her to help her through this difficult time. Patient's states she will call her daughter when we hang up the phone. Patient's declines any further questions or concerns at this time.
[2020-07-10 18:33] LABS: Glucose Point of Care 102 (65-105)
[2020-07-11] VITALS (8 sets, daily range): BP systolic 139; BP diastolic 77; PULSE 89–96; RESP 16; TEMP 36.1; O2SAT 100
[2020-07-11 00:25] LABS: Glucose Point of Care 94 (65-105)
[2020-07-11] MEDS: ALPRAZolam 0.25 MG TABLET PO (01:15)
[2020-07-11] MEDS: ALBUTEROL SULFATE NEB 2.5 MG/0.5 ML INH 5 MG INHALATION ×2 (02:30→07:53)
[2020-07-11] MEDS: IPRATROPIUM BR 0.02% INH SOLN 0.5 MG/2.5 ML VIAL INHALATION ×2 (02:30→07:53)
[2020-07-11 06:01] LABS: Glucose Point of Care 80 (65-105)
--- NOTE | 2020-07-11 07:46 | PCOTNOTE ---
Patient going hospice, OT treatment not completed this date.
[2020-07-11] MEDS: DORNASE ALFA INH SOLN 1 MG/ML 2.5 ML AMP 2.5 MG INHALATION (07:53)
--- NOTE | 2020-07-11 08:13 | PCPTNOTE ---
The PT treatment was unable to be completed today due to patient refusal. Will continue per Plan of Care frequency and duration.
[2020-07-11] MEDS: DEXTROSE 5%/0.45% SOD CHL 1,000 ML 70 ML IV CONT (08:30)
[2020-07-11] MEDS: SACCHAROMYCES BOULARDII 250 MG CAPSULE PO (09:30)
[2020-07-11] MEDS: carvediloL 6.25 MG TABLET PO (09:31)
[2020-07-11] MEDS: FINASTERIDE 5 MG TABLET PO (09:36)
[2020-07-11] MEDS: ATORVASTATIN 40 MG TABLET PO (09:36)
[2020-07-11] MEDS: PANTOPRAZOLE 40 MG TABLET PO (09:36)
[2020-07-11] MEDS: guaiFENesin 12 HR 600 MG TABCR PO (09:36)
--- NOTE | 2020-07-11 12:43 | PM.DS ---
DS: Admitting Diagnosis Admitting Diagnosis Admitting Diagnosis: Pneumonia DS: Discharge Diagnosis Discharge Diagnosis (1) Pneumonia: Qualifiers: Laterality: bilateral Lung location: unspecified part of lung Pneumonia type: due to unspecified organism Qualified Code(s): J18.9 - Pneumonia, unspecified organism Code(s): J18.9 - Pneumonia, unspecified organism Status: Acute Assessment and Plan: Date of Admission: 07/06/20 Date of Discharge/DOS: 07/11/20 Mr. Steiner is a 74yo M with history of COPD with chronic respiratory failure on 4-5L/min home O2, anemia, anxiety, history of known dysphagia and multiple hospital admissions for aspiration pneumonia who presented to the ED from [place] for evaluation of hemoptysis. Imaging again showed findings consistent with aspiration pneumonia and chronic right hemidiaphragm paralysis with collapsed right lower lobe. He recently had a stay at [facility] when pulmonology performed bronchoscopy, biopsies showed no malignancy. He was again seen here by pulmonology, Dr Cox, and infectious disease, Dr Cruz. Both specialists recommended palliative care. Patient has notably declined in the last several months with significant weakness and weight loss. Dr Cruz recommended stopping antibiotics as they were not expected to help. Goals of care were discussed at length with patient and his at the bedside. Patient expressed wishes to transition to hospice care. Patient discharged to inpatient hospice with [facility] 07/11/20. Suspect recurrent aspiration PNA; was recently treated here 06/16 - 06/19 for treatment of same. COVID negative 07/06/20. Recently admitted at [facility] 06/03/20 - 06/11/20 and was seen by pulmonology; he had bronchoscopy and sniff testing during that admission at [facility], biopsy negative for malignancy. He has right hemidiaphragm paralysis. Appreciate Dr Cox and Dr Cruz's input. Both have recommended palliative care. Discussed at length with patient and family and they wish to pursue hospice care. (2) Dysphagia: Qualifiers: Dysphagia type: unspecified Qualified Code(s): R13.10 - Dysphagia, unspecified Code(s): R13.10 - Dysphagia, unspecified Status: Acute Assessment and Plan: [facility] repeated this admission; speech therapy recommends minced/moist diet and moderately thickened liquids. Last admission, he was discharged on a pureed diet. Once he got to [place], he signed a waiver to be able to eat a regular diet. This may have contributed to his recurrent aspiration PNA. (3) Hemoptysis: Code(s): R04.2 - Hemoptysis Status: Resolved Assessment and Plan: Resolved. [place] to be secondary to PNA on aspirin and plavix. ASA and plavix were held. Supplemental O2 is at his baseline requirement. (4) COPD (chronic obstructive pulmonary disease): Qualifiers: COPD type: unspecified COPD Qualified Code(s): J44.9 - Chronic obstructive pulmonary disease, unspecified Code(s): J44.9 - Chronic obstructive pulmonary disease, unspecified Status: Chronic Assessment and Plan: Treated with bronchodilator therapy with duo nebs; pulmozyme and mucinex, supplemental O2. (5) Anemia: Qualifiers: Anemia type: unspecified type Qualified Code(s): D64.9 - Anemia, unspecified Code(s): D64.9 - Anemia, unspecified Status: Chronic Assessment and Plan: H&H low but stable. No evidence of acute bleeding other than hemoptysis that has resolved. (6) Anxiety: Code(s): F41.9 - Anxiety disorder, unspecified Status: Chronic Assessment and Plan: Stable, continue home meds.
== END 2020-07-11 12:50 | disposition hospice, inpatient (51) | DRG 178 ==
LOC: ANHED 23:42 → ANH3MEDSUR 07-07 07:05
PROVIDERS: Emergency Medicine Emergency Medical Services; Physician Assistant; Admitting Provider Internal Medicine; Emergency Provider Family Medicine; PCP Emergency Medicine; Visit Provider Physician Assistant
DX: J69.0 Pneumonitis due to inhalation of food and vomit (principal); R04.2 Hemoptysis; J96.12 Chronic respiratory failure with hypercapnia; J96.11 Chronic respiratory failure with hypoxia; J98.19 Other pulmonary collapse; G40.802 Other epilepsy, not intractable, without status epilepticus; J84.9 Interstitial pulmonary disease, unspecified; D64.9 Anemia, unspecified; F41.9 Anxiety disorder, unspecified; R13.10 Dysphagia, unspecified; Z20.828 Contact with and (suspected) exposure to other viral communicable diseases; F03.90 Unspecified dementia, unspecified severity, without behavioral disturbance, psychotic disturbance, mood disturbance, and anxiety; J98.6 Disorders of diaphragm; N40.0 Benign prostatic hyperplasia without lower urinary tract symptoms; E78.5 Hyperlipidemia, unspecified; I10 Essential (primary) hypertension; G47.33 Obstructive sleep apnea (adult) (pediatric); I69.398 Other sequelae of cerebral infarction; G40.909 Epilepsy, unspecified, not intractable, without status epilepticus; I27.20 Pulmonary hypertension, unspecified; Z99.81 Dependence on supplemental oxygen; J44.9 Chronic obstructive pulmonary disease, unspecified; Z87.891 Personal history of nicotine dependence
CPT/HCPCS: 36415; 71045; 71250; 80048; 80053; 80076; 81001; 82607; 82728; 82746; 83540; 83550; 83605; 83615; 83690; 83735; 83880; 84100; 84443; 84466; 84484; 85025; 85610; 85730; 86140; 87040; 87635; 92526; 92611; 93005; 93306; 94640; 94667; 94668; 97110; 97161; 97165; 97530; 99285; A9270; C9803; J0456; J0696; J3475; J7030; U0003

== ENCOUNTER 2020-07-11 12:51 | HOS | payer OTHER, MEDICARE, SELFPAY ==
[2020-07-11 14:00] VITALS: BP 108/54; PULSE 84; RESP 20; TEMP 36.9; O2SAT 99
[2020-07-11 14:15] VITALS: BMI 16.0
[2020-07-11] MEDS: MORPHINE SULFATE 2 MG/ML INJ 1 MG IV PUSH (15:38)
--- NOTE | 2020-07-11 18:57 | PM.IMHP ---
H&P: HPI History of Present Illness Date/Time: 07/11/20 18:57 Chief complaint: Respiratory Failure Narrative: Marino Steiner is a 74 year old male Admitted to acute care on 07/07 after 3 days of hemoptysis at [facility] where he was receiving rehab. He had been discharged from [place] 06/19 after treatment for aspiration pneumonia. MBS this admission revealed aspiration of thin liquids. He had RLL debris and collapse and bilateral infiltrates on lung CT. He has chronic right diaphragmatic paralysis. He requires 5L O2 per NC to maintain oxygenation. He did not want a feeding tube. Therefore, he and his family opted for hospice. Because of severe dyspnea, he was admitted [facility] for symptom control. He is still experiencing right chest pain and dyspnea in spite of morphine bolus 1mg and drip at 0.25mg/hr. He also received one dose of lorazepam 0.5mg ivp w/o relief. History was obtained by chart review, discussion with hospice nurse, discussion with staff nurse, and direct questioning of patient regarding his symptoms. 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 Chronic respiratory failure with hypoxia and hypercapnia On 5 L home O2 COPD (chronic obstructive pulmonary disease) Diastolic dysfunction HLD (hyperlipidemia) Hypertension ILD (interstitial lung disease) NICK (obstructive sleep apnea) Intolerant to CPAP therapy Pulmonary hypertension Seizures April 2019 Surgical History Surgical History H/O rectal polypectomy History of colonoscopy History of removal of pigmented skin lesion Hx of tonsillectomy Family History Family History Mother Age older than 80 years Father , Around 50 years old Acute myocardial infarction Social History Social History (Updated 07/11/20 @ 19:20 by Jefferson Mason MD) Social History: The patient lives with his usually but has been at [facility] for SNF. His is his durable power patent attorney for healthcare. He has 1 son. He quit tobacco in 1968 after smoking a pack a day for 10 years. 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 He is a [place] . Denies any alcohol or drug use. 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 Primary care physician: Dr. Fabián Logan Code status: DNR Smoking packs per day: 1 Smoking cigarettes per day: 20.0 Years smoked: 10 Smoking pack-years: 10.00 Smoking status: Former smoker Tobacco type: cigarettes Second hand tobacco smoke exposure: No Smoking end date: 10/31/79 Alcohol intake: former Substance use: never Substance use type: does not use Gender identity (if verbalized by the patient): Male Spiritual care concerns: No Agree to blood products: Yes Meds Home Medications and Allergies Home Medications Medication Instructions Recorded Confirmed Type finasteride 5 mg tablet 5 mg PO DAILY 10/25/19 07/07/20 History multivitamin-ferrous 1 tablet PO DAILY 10/25/19 07/07/20 History fumarate-folic acid 18 mg-400 mcg tablet aspirin [Adult Low Dose Aspirin] 81 mg PO DAILY 05/01/20 07/07/20 History atorvastatin 40 mg PO DAILY 05/01/20 07/07/20 History carvedilol 6.25 mg PO BID 05/01/20 07/07/20 History clopidogrel 75 mg PO DAILY 05/01/20 07/07/20 History omeprazole 20 mg PO DAILY 05/01/20 07/07/20 History Saccharomyces boulardii [Florastor] 250 mg PO TID #21 cap 05/04/20 07/07/20 Rx budesonide-formoterol HFA 160 2 puff INHALATION Q12H #10.2 gm 05/12/20 07/07/20 Rx mcg-4.5 mcg/actuation aerosol
[2020-07-11] MEDS: DEXAMETHASONE SOD PHOS INJ 4 MG/ML VIAL 6 MG IV PUSH (21:26)
[2020-07-11 22:00] VITALS: BP 123/78; PULSE 93; RESP 22; TEMP 36.8; O2SAT 100
[2020-07-12] MEDS: DEXAMETHASONE SOD PHOS INJ 4 MG/ML VIAL 6 MG IV PUSH (11:22)
[2020-07-12] MEDS: MORPHINE SULFATE 2 MG/ML INJ IV PUSH ×2 (11:52→16:43)
[2020-07-12 12:00] VITALS: BP 120/57; PULSE 117; RESP 20; TEMP 36.3; O2SAT 92
--- NOTE | 2020-07-12 16:37 | PC.NURSE ---
was called to room by precision lens technician, pt pulse ox was 81 on 4 l o2 per n/c increased to 6 l pulse ox 90, [facility] notified
--- NOTE | 2020-07-12 16:38 | PC.NURSE ---
was trying to feed pt cream of wheat at 1550, pt choked on it , attempted to suction pt, encouraged pt to cough, pulse ox 92% on 4 l of o2 per n/c, instructed not to feed pt
[2020-07-12 22:00] VITALS: BP 105/51; PULSE 60; RESP 20; TEMP 36.1; O2SAT 90
[2020-07-13 06:00] VITALS: BP 119/64; PULSE 95; TEMP 36; O2SAT 100
--- NOTE | 2020-07-13 06:19 | PC.NURSE ---
Patient woke up asking to speak to a machine bender and his . Kyle with the machine bender's service was paged and said he would be in this morning to see the patient. Called [place] to obtain a working number for his Fernando. Called the at 0612 to notify her that she could come in to see her at any time, as he was asking for her. She said it would probably be awhile before she came in.
[2020-07-13] MEDS: MORPHINE SULFATE 2 MG/ML INJ IV PUSH (07:43)
--- NOTE | 2020-07-13 08:08 | PC.NURSE ---
Chaplain Wright at bedside to see patient per patient request.
[2020-07-13] MEDS: GLYCOPYRROLATE INJ (*SP) 0.2 MG/ML VIAL 0.1 MG IV PUSH (08:20)
[2020-07-13] MEDS: DEXAMETHASONE SOD PHOS INJ 4 MG/ML VIAL 6 MG IV PUSH (08:20)
--- NOTE | 2020-07-13 08:20 | PC.NURSE ---
Patient appears to have excess secretions and appears uncomfortable. Patient medicated as ordered. See MAR.
--- NOTE | 2020-07-13 09:55 | PC.NURSE ---
Patient appears anxious. Patient keeps repeating I want to . Patient will be medicated as ordered. See MAR. at bedside.
[2020-07-13] MEDS: MORPHINE SULFATE 2 MG/ML INJ 4 MG IV PUSH (18:34)
--- NOTE | 2020-07-13 21:29 | PM.IMPN ---
Progress Note: A&P Assessment and Plan (1) Palliative care by specialist: Code(s): Z51.5 - Encounter for palliative care Status: Acute Assessment and Plan: [facility] status is appropriate due to uncontrolled pain and dyspnea, both requiring IV medication for relief. Increase morphine to 2mg/hr and bolus to 4mg q 2 hr prn. (2) Hemoptysis: Code(s): R04.2 - Hemoptysis Status: Resolved (3) Recurrent aspiration pneumonia: Code(s): J69.0 - Pneumonitis due to inhalation of food and vomit Status: Acute (4) COPD (chronic obstructive pulmonary disease): Qualifiers: COPD type: unspecified COPD Qualified Code(s): J44.9 - Chronic obstructive pulmonary disease, unspecified Code(s): J44.9 - Chronic obstructive pulmonary disease, unspecified Status: Chronic (5) Acute and chronic respiratory failure: Code(s): J96.20 - Acute and chronic respiratory failure, unspecified whether with hypoxia or hypercapnia Status: Acute (6) Chronic respiratory failure with hypoxia and hypercapnia: Code(s): J96.11 - Chronic respiratory failure with hypoxia; J96.12 - Chronic respiratory failure with hypercapnia Status: Acute (7) Dysphagia: Qualifiers: Dysphagia type: unspecified Qualified Code(s): R13.10 - Dysphagia, unspecified Code(s): R13.10 - Dysphagia, unspecified Status: Acute Subjective Date/time seen: 07/13/20 14:35 Interval history: 07/13: Telemedicine visit. Comfortable all day 07/12. Today told spouse he was ready to . Furrowed brow when hospice nurse visited. Review of Systems Review of Systems: ROS unobtainable: Yes unobtainable due to medical condition Exam Narrative: Exam Narrative: nonverbal at time of visit Objective Data Vital Signs Vital Signs: Vital Signs - 24 hr 07/12/20 22:00 07/13/20 06:00 Temperature 96.9 F L 96.8 F L Pulse Rate 60 95 Respiratory Rate 20 Blood Pressure 105/51 L 119/64 Pulse Oximetry 90 100 Intake/Output Intake/Output: Intake & Output 07/10/20 07/11/20 07/12/20 07/13/20 23:59 23:59 23:59 23:59 Intake Total 100 125 Balance 100 125 Meds/Results Medications: Active Medications Generic Name Dose Route Start Last Admin Trade Name Freq PRN Reason Stop Dose Admin Artificial Tears 0 drop 07/11/20 13:25 EACH EYE PRN PRN Dry Eye(s) Bisacodyl 10 mg 07/11/20 13:25 Dulcolax Suppository RECTAL DAILY PRN Constipation Dexamethasone Sodium Phosphate 6 mg 07/11/20 19:15 07/13/20 08:20 Decadron 4 Mg/Ml Inj IV PUSH 07/20/20 09:01 6 mg DAILY CAITLIN Administration Glycopyrrolate 0.1 mg 07/11/20 13:26 07/13/20 08:20 Robinul Inj IV PUSH 0.1 mg Q4H PRN Administration EXCESS SECRETION Morphine Sulfate 50 mg/ Sodium 100 mls @ 4 mls/hr 07/11/20 13:25 07/13/20 15:08 Chloride IV CONT 2 mg/hr .Q24H CAITLIN 4 mls/hr Administration 2 MG/HR Lorazepam 0.5 mg 07/11/20 13:25 07/13/20 09:57 Ativan Inj IV PUSH 0.5 mg Q4H PRN Administration Shortness Of Breath Morphine Sulfate 4 mg 07/13/20 14:57 07/13/20 18:34 Morphine Sulfate Inj IV PUSH 4 mg Q2H PRN Administration Pain/SOB Prochlorperazine Edisylate 10 mg 07/11/20 13:26 Compazine IV PUSH Q6H PRN Nausea And Vomiting
[2020-07-13 23:29] VITALS: BP 107/57; PULSE 92; RESP 8; TEMP 36.7; O2SAT 97
[2020-07-14] MEDS: DEXAMETHASONE SOD PHOS INJ 4 MG/ML VIAL 6 MG IV PUSH (09:59)
[2020-07-14 14:23] VITALS: BP 116/99; PULSE 98; RESP 10; TEMP 35.8; O2SAT 100
--- NOTE | 2020-07-14 18:21 | PM.DDS ---
Discharge Sum: Prov Provider Primary care physician: Fabián Logan MD Admitting provider: Jefferson Mason MD Discharge Sum: Diag Contributing Factors (1) Recurrent aspiration pneumonia: (2) Pre-diabetes: (3) Chronic respiratory failure with hypoxia and hypercapnia: (4) COPD (chronic obstructive pulmonary disease): (5) Acute exacerbation of chronic obstructive pulmonary disease: (6) Dysphagia: Discharge Sum: Summary Date and Time Date of admission: 07/11/20 12:51 Summary Details: Patient was admitted to inpatient hospice service due to recurrent aspiration pneumonia with acute on chronic respiratory failure with uncontrolled dyspnea and discomfort. Medications were titrated to comfort. Patient peacefully. Additional Data Attending physician: Jefferson Mason MD
== END 2020-07-14 15:00 | disposition expired | DRG 177 ==
PROVIDERS: Admitting Provider Internal Medicine; PCP Emergency Medicine; Visit Provider Internal Medicine
DX: J69.0 Pneumonitis due to inhalation of food and vomit (principal); J96.22 Acute and chronic respiratory failure with hypercapnia; J96.21 Acute and chronic respiratory failure with hypoxia; J44.1 Chronic obstructive pulmonary disease with (acute) exacerbation; R13.10 Dysphagia, unspecified; Z51.5 Encounter for palliative care; Z87.891 Personal history of nicotine dependence; I10 Essential (primary) hypertension; G47.33 Obstructive sleep apnea (adult) (pediatric); F41.9 Anxiety disorder, unspecified; D64.9 Anemia, unspecified
CPT/HCPCS: A9270; J1100; J2060; J2270